=== PATIENT | male | born 1945 | race Caucasian/White ===

== ENCOUNTER 2019-07-16 17:25 | Inpatient (IN) ==
[2019-07-16] MEDS ORDERED: NITROGLYCERIN 2% OINTMENT 30GM TUBE EXT ONE (18:15)
[2019-07-16] MEDS ORDERED: FUROSEMIDE 40 MG/4 ML VIAL IV STA (18:15)
--- NOTE | 2019-07-16 18:26 | Emergency Department Note ---
History of Present Illness General Chief complaint: Referred by Doctor Stated complaint: POSSIBLE HEART FAILURE, SOB Time Seen by Provider: 07/16/19 18:05 Source: patient Limitations: no limitations History of Present Illness Provider complaint: Shortness of breath Onset (ago): week(s) 1 Location: chest Radiation: non-radiation Severity: moderate Pain Consistency: + intermittent Maximum Pain Intensity: 8 Quality: + other (Feels like he cannot breathe) Relieved By: + other (Oxygen) Associated symptoms: + chest pain (Tightness for the past week) and + other (Orthopnea and bilateral leg swelling); no cough, no diaphoresis, no fever/chills, no headaches, no malaise and no nausea/vomiting This is a 74-year-old male sent over from the [facility] cardiology office for possible CHF exacerbation. The patient has a prior history of coronary artery disease and is presenting with shortness of breath for the past week. He states that it is worse when he lies flat. It is better with oxygen here. He does not smoke cigarettes but he does chew tobacco. He states that years ago he had a blocked artery in his heart but was told that a vein made up for it. He was previously on Lasix but not recently. He does note that he has had significant swelling to both of his legs for the past week. He states the skin feels very tight around the entire leg from the knee down bilaterally. He also complains of chest discomfort which he has had for about a week as well. He states that it feels like a tightness in the middle of his chest. He denies any cough or cold symptoms, fever, malaise, known exposure to COVID-19, abdominal pain or diarrhea. Home Medications Home Medications Medication Instructions Recorded Confirmed Type amlodipine 2.5 mg PO DAILY 07/16/19 07/16/19 History aspirin 162 mg PO DAILY 07/16/19 07/16/19 History atenolol 50 mg PO DAILY 07/16/19 07/16/19 History losartan 100 mg PO DAILY 07/16/19 07/16/19 History terazosin 1 mg PO HS 07/16/19 07/16/19 History ustekinumab [Stelara] 90 mg SUBCUT UD 07/16/19 07/16/19 History Allergies Allergy/AdvReac Type Severity Reaction Status Date / Time No Known Allergies Allergy Verified 07/16/19 21:27 [id number] Allergy Unknown Unknown Uncoded 07/16/19 21:25 Past Med/Surg History Medical History Coronary artery disease 09/1999 - PTCA to OM2 Hypertension Psoriasis Statin intolerance Family History (Updated 07/16/19 @ 20:52 by CIARA Yusuf) Father Kidney failure Social History Preferred Language: Swedish Communication Ability: Effective Beliefs That Will Affect Care: None Current Living Situation: Spouse Feels Safe at Home: Yes Smoking Status: Never smoker Tobacco Type: smokeless tobacco ; Do You Dip or Chew Tobacco: Yes ; Tobacco Cessation Education Requested by Patient: No (refused) Hx Alcohol Use: No Hx Substance Use: No Review of Systems See HPI for pertinent positives & negatives. and A total of 10 systems reviewed and were otherwise negative Physical Exam Vital Signs Vital Signs - 24 hr 07/16/19 17:29 07/16/19 18:59 07/16/19 19:00 Temperature 36.7 C Temperature Source Oral Pulse Rate 73 67 68 Pulse Rate from SpO2 Sensor 66 66 Pulse Rhythm Regular Pulse Strength Normal Respiratory Rate 26 H 25 H 23 Respiratory Effort / Characteristics Non-Labored Spontaneous Respiratory Depth Normal Respiratory Pattern Regular Blood Pressure 191/95 H 170/66 H 165/74 H Blood Pressure Mean 127 91 113 Blood Pressure Position Lying Pulse Oximetry 83 L 100 99 Oxygen Delivery Method Room Air Nasal Cannula Nasal Cannula Oxygen Flow Rate 2 2 Sepsis Recent Fever Within 48 Hours No Sepsis New/Unexplained Change in Mental Status No Sepsis Action Taken by Nursing No Action Required 07/16/19 19:30 07/16/19 20:00 Temperature Temperature Source Pulse Rate 67 61 Pulse Rate from SpO2 Sensor 66 62 Pulse Rhythm Pulse Strength Respiratory Rate 17 23 Respiratory Effort / Characteristics Respiratory Depth Respiratory Pattern Blood Pressure 175/76 H 154/80 H Blood Pressure Mean 100 114 Blood Pressure Position Pulse Oximetry 99 96 Oxygen Delivery Method Nasal Cannula Nasal Cannula Oxygen Flow Rate 2 2 Sepsis Recent Fever Within 48 Hours Sepsis New/Unexplained Change in Mental Status Sepsis Action Taken by Nursing Constitutional: Vital signs reviewed. Eyes: Pupils are equal round reactive to light. Conjunctiva are noninjected. ENT: Pharynx is clear without erythema or exudate. Mucous membranes are moist. Neck supple without meningeal signs. Respiratory: Clear to auscultation bilaterally. Breath sounds are equal bilaterally. Cardiovascular: Regular rate and rhythm. No rubs or gallops. GI: Soft, nondistended and nontender. Bowel sounds are present. Musculoskeletal: Bilateral lower extremity pitting edema with intact distal pulses. Integumentary: No cyanosis. or jaundice. Neurological: The patient is awake and alert. No focal deficits. Psychiatric: Normal affect. Not anxious appearing. Course Administered Medications Enoxaparin Sodium (Lovenox) 40 mg SQ Q24H KARYN Stop: 08/15/19 22:59 Last Admin: 07/16/19 23:36 Dose: Not Given Documented by: [id number] Terazosin HCl (Hytrin) 1 mg PO HS KARYN Stop: 08/15/19 22:27 Last Admin: 07/16/19 23:35 Dose: 1 mg Documented by: [id number] Discontinued Medications Furosemide (Lasix) 40 mg IV NOW STA Stop: 07/16/19 18:16 Last Admin: 07/16/19 18:59 Dose: 40 mg Documented by: [id number] Nitroglycerin (Nitro-Bid 2%) 0.5 inch EXT NOW ONE Stop: 07/16/19 18:16 Last Admin: 07/16/19 18:58 Dose: 0.5 inch Documented by: [id number] Medical Decision Making Differential Diagnosis CHF exacerbation, pulmonary edema, pneumonia, acute coronary syndrome, unstable angina, pleural effusion Medical Records Attestation: I reviewed the patient's medical records. I did perform a limited focused review of portions of the patient's old chart on the electronic medical record. The patient has had no recent pertinent visits to this hospital. Home Medications Current Medication List: was personally reviewed by me Laboratory Data Attestation: I reviewed the patient's lab results. Result diagrams: 07/16/19 18:35 07/16/19 18:35 Lab Results 07/16/19 07/16/19 07/16/19 Range/Units 18:35 18:35 18:35 WBC 10.20 (4.8-10.8) K/uL RBC 4.58 L (4.7-6.1) M/uL Hgb 14.4 (14.0-18.0) g/dL Hct 46.9 (42-52) % MCV 102.4 H (80-100) fL MCH 31.4 (25-34) pg MCHC 30.7 L (32-36) g/dL RDW Std Deviation 65.8 H (36.4-46.3) fL RDW Coeff of Sabrina 17.4 H (11.5-14.5) % Plt Count 243 (130-400) K/uL MPV 10.6 H (7.4-10.4) fL Immature Gran % (Auto) 0.2 % Neut % (Auto) 72.9 % Lymph % (Auto) 15.5 % [place] % (Auto) 8.5 % Eos % (Auto) 2.7 % Baso % (Auto) 0.2 % Immature Gran # (Auto) 0.02 (0.00-0.02) K/uL Neut # (Auto) 7.43 H (1.4-6.5) K/uL Lymph # (Auto) 1.58 (1.2-3.4) K/uL [place] # (Auto) 0.87 H (0.11-0.59) K/uL Eos # (Auto) 0.28 (0-0.5) K/uL Baso # (Auto) 0.02 (0-0.2) K/uL Absolute Nucleated RBC 0.03 H (0-0) K/uL Nucleated RBC % (auto) 0.3 % PT 10.7 (9.0-12.0) Seconds INR 1.0 (0.9-1.1) APTT 27.6 (21.0-31.0) Seconds PTT Ratio 1.0 Sodium (136-145) mmol/L Potassium (3.5-5.1) mmol/L Chloride (98-107) mmol/L Carbon Dioxide (21-32) mmol/L Anion Gap (3-11) BUN (7-18) mg/dl Creatinine (0.6-1.4) mg/dl Est Cr Clr Drug Dosing Est GFR ( Amer) Est GFR (Non-Af Amer) BUN/Creatinine Ratio (10-20) Glucose (70-99) mg/dl Calcium (8.5-10.1) mg/dl Total Bilirubin (0.2-1) mg/dl AST (15-37) U/L ALT (12-78) U/L Alkaline Phosphatase (45-117) U/L Troponin I < 0.015 (0-0.045) ng/ml NT-Pro-B Natriuret Pep 1655 H (0-900) pg/ml Total Protein (6.4-8.2) gm/dl Albumin (3.4-5.0) gm/dl Globulin (2.5-4.0) gm/dl Albumin/Globulin Ratio (0.9-2) 05/18/20 Range/Units 18:35 WBC (4.8-10.8) K/uL RBC (4.7-6.1) M/uL Hgb (14.0-18.0) g/dL Hct (42-52) % MCV (80-100) fL MCH (25-34) pg MCHC (32-36) g/dL RDW Std Deviation (36.4-46.3) fL RDW Coeff of Sabrina (11.5-14.5) % Plt Count (130-400) K/uL MPV (7.4-10.4) fL Immature Gran % (Auto) % Neut % (Auto) % Lymph % (Auto) % [place] % (Auto) % Eos % (Auto) % Baso % (Auto) % Immature Gran # (Auto) (0.00-0.02) K/uL Neut # (Auto) (1.4-6.5) K/uL Lymph # (Auto) (1.2-3.4) K/uL [place] # (Auto) (0.11-0.59) K/uL Eos # (Auto) (0-0.5) K/uL Baso # (Auto) (0-0.2) K/uL Absolute Nucleated RBC (0-0) K/uL Nucleated RBC % (auto) % PT (9.0-12.0) Seconds INR (0.9-1.1) APTT (21.0-31.0) Seconds PTT Ratio Sodium 142 (136-145) mmol/L Potassium 4.9 (3.5-5.1) mmol/L Chloride 104 (98-107) mmol/L Carbon Dioxide 34 H (21-32) mmol/L Anion Gap 4.0 (3-11) BUN 16 (7-18) mg/dl Creatinine 1.33 (0.6-1.4) mg/dl Est Cr Clr Drug Dosing Not Reportable Est GFR ( Amer) 60.6 Est GFR (Non-Af Amer) 52.3 BUN/Creatinine Ratio 12.2 (10-20) Glucose 101 H (70-99) mg/dl Calcium 8.6 (8.5-10.1) mg/dl Total Bilirubin 0.7 (0.2-1) mg/dl AST 17 (15-37) U/L ALT 28 (12-78) U/L Alkaline Phosphatase 126 H (45-117) U/L Troponin I (0-0.045) ng/ml NT-Pro-B Natriuret Pep (0-900) pg/ml Total Protein 7.4 (6.4-8.2) gm/dl Albumin 3.2 L (3.4-5.0) gm/dl Globulin 4.2 H (2.5-4.0) gm/dl Albumin/Globulin Ratio 0.8 L (0.9-2) Imaging Data Radiologist's Impression: SINGLE VIEW CHEST CLINICAL HISTORY: Atypical chest pain. FINDINGS: An AP, portable, upright chest radiograph is correlated with chest CT dated 07/02/2008. The examination is degraded by portable technique and patient rotation. The heart is enlarged noting atherosclerotic calcification of the thoracic aorta. There is pulmonary vascular congestion. There are small pleural effusions with bibasilar consolidation. No pneumothorax is seen. The skeletal structures are osteopenic. The bony thorax is grossly intact. IMPRESSION: 1. Cardiomegaly with evidence of congestive failure. 2. Small pleural effusions with bibasilar consolidation. This likely represents atelectasis and clinical correlation will be required. ACT 112: Negative or not required by law. Electronically signed by: Gomez Gómez M.D. 07/16/2019 7:35 PM ECG Data Attestation: I personally reviewed and interpreted this ECG as follows: Indication: + chest pain and + SOB/dyspnea Rate (beats per minute): 70 Rhythm: + normal sinus ECG Intervals/blocks: + Left anterior fascicular block and + Right Bundle branch block ECG ST segments: + T-wave inversions ECG Findings: + PACs Blood Pressure Blood Pressure Findings: Elevated blood pressure Blood Pressure Disposition: further management by hospitalist TIANNA Narrative I did evaluate the patient as noted above. The patient is presenting with shortness of breath with leg swelling and chest discomfort for the past week. IV access was established. The patient's O2 saturation was 83% on room air. The patient was placed on supplemental oxygen via nasal cannula. His O2 saturation went up to 99% on 2 L. I did treat the patient with nitroglycerin paste to the anterior chest wall. He was also given Lasix [address] I did place an order for continuous cardiac monitoring. The monitor showed normal sinus rhythm with a rate of 73. I did order and personally review the patient's 12-lead EKG as described above. He has no acute ischemia. I did order and personally reviewed the images of the patient's chest x-ray as described above. Chest x-ray is consistent with CHF exacerbation with bilateral pleural effu sions and atelectasis at the base. I did order and review the patient's blood work as noted in the electronic medical record. His white count is not elevated. He is not anemic. Electrolytes are unremarkable. BNP is elevated consistent with CHF. Troponin is negative. I did discuss the test results with the patient. He states he is feeling much better at this time. He has no chest discomfort. I did discuss case with the hospitalist and case work aide. Impression & Plan Hypoxia, Chest pain, Acute exacerbation of CHF (congestive heart failure), Bilateral pleural effusion Discharge Plan Visit Data *Final* Discharge Date/Time: 07/16/19 21:53 Chief Complaint: Referred by Doctor Stated Complaint: POSSIBLE HEART FAILURE, SOB ED Provider: Joni Pino Discharge Problem: Hypoxia, Chest pain, Acute exacerbation of CHF (congestive heart failure), Bilateral pleural effusion Patient Disposition: Admitted As Inpatient Condition: Good Discharge Instructions Interventions: ED Discharge Assessment Last Done: 07/16/19 21:53 Discharge Problem: Chest pain Qualifiers: Chest pain type: unspecified Qualified Code(s): R07.9 - Chest pain, unspecified Acute exacerbation of CHF (congestive heart failure) Qualifiers: Heart failure type: unspecified Qualified Code(s): I50.9 - Heart failure, unspecified
[2019-07-16 18:52] LABS: Basophils # (auto) 0.02 K/uL (0-0.2); Basophils % (auto) 0.2 %; Eosinophils # (auto) 0.28 K/uL (0-0.5); Eosinophils % (auto) 2.7 %; Hematocrit (blood only) 46.9 % (42-52); Hemoglobin 14.4 g/dL (14.0-18.0); Immature Granulocytes # (auto) 0.02 K/uL (0.00-0.02); Immature Granulocytes % (auto) 0.2 %; Lymphocytes # (auto) 1.58 K/uL (1.2-3.4); Lymphocytes % (auto) 15.5 %; Mean Corpuscular Hemoglobin 31.4 pg (25-34); Mean Corpuscular Hgb Conc 30.7 g/dL (32-36); Mean Corpuscular Volume 102.4 fL (80-100); Mean Platelet Volume 10.6 fL (7.4-10.4); Monocytes # (auto) 0.87 K/uL (0.11-0.59); Monocytes % (auto) 8.5 %; Neutrophils # (auto) 7.43 K/uL (1.4-6.5); Neutrophils % (auto) 72.9 %; Nucleated RBC # (auto) 0.03 K/uL (0-0); Nucleated RBC % (auto) 0.3 %; Platelet Count 243 K/uL (130-400); RDW Coefficient of Variation 17.4 % (11.5-14.5); RDW Standard Deviation 65.8 fL (36.4-46.3); Red Blood Count 4.58 M/uL (4.7-6.1)
[2019-07-16 18:58] LABS: Partial Thromboplastin Time 27.6 Seconds (21.0-31.0); Prothrombin Time 10.7 Seconds (9.0-12.0)
[2019-07-16 19:06] LABS: Alanine Aminotransferase 28 U/L (12-78); Albumin Level 3.2 gm/dl (3.4-5.0); Aspartate Aminotransferase 17 U/L (15-37); BUN Creatinine Ratio 12.2 (10-20); Blood Urea Nitrogen 16 mg/dl (7-18); Calcium 8.6 mg/dl (8.5-10.1); Carbon Dioxide 34 mmol/L (21-32); Chloride 104 mmol/L (98-107); Est GFR (African American) 60.6; Est GFR (Non-African American) 52.3; Glucose 101 mg/dl (70-99); Potassium 4.9 mmol/L (3.5-5.1); Sodium 142 mmol/L (136-145)
[2019-07-16 19:09] LABS: Albumin Globulin Ratio 0.8 (0.9-2); Alkaline Phosphatase 126 U/L (45-117); Bilirubin,Total 0.7 mg/dl (0.2-1); Globulin 4.2 gm/dl (2.5-4.0); Total Protein 7.4 gm/dl (6.4-8.2)
[2019-07-16 19:14] LABS: NT Pro B Type Natriuretic Pept 1655 pg/ml (0-900); Troponin I < 0.015 ng/ml (0-0.045)
--- NOTE | 2019-07-16 19:36 | XRay Report ---
SINGLE VIEW CHEST CLINICAL HISTORY: Atypical chest pain. FINDINGS: An AP, portable, upright chest radiograph is correlated with chest CT dated 07/02/2008. The e xamination is degraded by portable technique and patient rotation. The heart is enlarged noting ather osclerotic calcification of the thoracic aorta. There is pulmonary vascular congestion. There are sma ll pleural effusions with bibasilar consolidation. No pneumothorax is seen. The skeletal structures a re osteopenic. The bony thorax is grossly intact. IMPRESSION: 1. Cardiomegaly with evidence of congestive failure. 2. Small pleural effusions with bibasilar consolidation. This likely represents atelectasis and clini glendy correlation will be required. ACT 112: Negative or not required by law. Electronically signed by: Gomez Gómez M.D. 07/16/2019 7:35 PM
--- NOTE | 2019-07-16 20:39 | History & Physical Report ---
Date of Service July 16, 2019 Assessment & Plan (1) Acute exacerbation of CHF (congestive heart failure): -admit to tele -patient presenting from home with reports of lower extremity edema and shortness of breath -on exam, found to have pitting edema BLLE and was also hypoxic on room air requ iring 2L oxygen via NC -CXR shows CHF, proBNP 1655 -echo 2016 - EF 55-59%, grade I diastolic dysfunction -s/p Lasix 40mg IV in the ED, continue with 40mg IV BID -update echo -strict I/Os, daily weights, low Na+ diet -cardio consult, input appreciated (2) Acute respiratory failure with hypoxia: -on presentation, 83% on room air requiring 2L of oxygen -likely due to CHF -continue to monitor (3) Chest pain: (4) Coronary artery disease: -initial trop negative, EKG shows bifascicular block -continue to cycle cardiac enzymes -echo -continue ASA, beta irais, ARB; noted to be statin intolerant (5) Hypertension: -BP elevated, should improved with diuresis -continue atenolol, amlodipine, terazosin, and losartan (6) DVT prophylaxis: -SQ Lovenox History of Present Illness Chief Complaint: Shortness of Breath, Lower Extremity Edema Primary Care Provider: Everardo Ervin 74 year old male with PMH CAD, HTN, psoriasis, and other problems listed below who presents to the ED with reports of lower extremity edema and shortness of breath. Patient reports symptoms have been ongoing for the past two weeks and progressively getting worse. Patient reports shortness of breath with minimal exertion. He reports orthopnea, worsening lower extremity edema, and abdominal d istention. He has had associated chest pain that he reports has been persistent. Pain is located substernally and patient describes it as a tightness. He has nitro at home however did not take any doses. He does not weigh himself on a routine basis. Patient denies lightheadedness, dizziness, diaphoresis, or syncopal events. No abdominal pain, nausea, vomiting, or diarrhea. Denies cough and sputum production. No fevers or chills. Denies urinary symptoms. In the ED, patient is found to be hypoxic on room air at 83%. This improved with oxygen 2L via NC. CXR shows CHF. Initial trop is negative and EKG does not show any acute ST changes. Patient was given Lasix 40mg IV and 0.5 inch nitro paste. Allergies Allergy/AdvReac Type Severity Reaction Status Date / Time No Known Allergies Allergy Verified 07/16/19 21:27 [id number] Allergy Unknown Unknown Uncoded 07/16/19 21:25 Home Medications Home Medications Medication Instructions Recorded Confirmed Type amlodipine 2.5 mg PO DAILY 07/16/19 07/16/19 History aspirin 162 mg PO DAILY 07/16/19 07/16/19 History atenolol 50 mg PO DAILY 07/16/19 07/16/19 History losartan 100 mg PO DAILY 07/16/19 07/16/19 History terazosin 1 mg PO HS 07/16/19 07/16/19 History ustekinumab [Stelara] 90 mg SUBCUT UD 07/16/19 07/16/19 History Past Med/Surg History Medical History Coronary artery disease 09/1999 - PTCA to OM2 Hypertension Psoriasis Statin intolerance Family History (Updated 07/16/19 @ 20:52 by CIARA Yusuf) Father Kidney failure Social History Preferred Language: Kiswahili Communication Ability: Effective Beliefs That Will Affect Care: None Current Living Situation: Spouse Feels Safe at Home: Yes Smoking Status: Never smoker Tobacco Type: smokeless tobacco ; Do You Dip or Chew Tobacco: Yes ; Tobacco Cessation Education Requested by Patient: No (refused) Hx Alcohol Use: No Hx Substance Use: No Review of Systems Review of Systems: ROS per HPI, all other systems reviewed and negative Physical Exam Constitutional: WD/WN, vitals as above + obese Eyes: PERRL, conjunctivae normal, anicteric sclerae ENMT: external ear and nose normal, oropharynx normal Respiratory: + abnormal respiratory effort (poor inspiratory effort) and no respiratory distress Auscultation: + diminished lung sounds Cardiovascular: Rate/Rhythm: regular rate and regular rhythm Vessels: normal peripheral pulses Extremities: + edema (+3-4 pitting edema BLE ) Gastrointestinal (Abdomen): normal bowel sounds, soft, nontender, no hepatosplenomegaly Inspection/Auscultation: + abdomen distended Musculoskeletal: no cyanosis or clubbing, extremities motor strength 5/5 Skin: no rashes, warm and dry Neurologic: PERRL, EOMI, accommodation nl, no face palsy, no dysarthria Psychiatric: A+Ox3, euthymic affect Results & Data Results & Data ([facility]) Vital Signs (Past 12 Hours) Vital Signs Temp Pulse Resp BP Pulse Ox 07/16/19 19:30 67 17 175/76 H 99 07/16/19 19:00 68 23 165/74 H 99 07/16/19 18:59 67 25 H 170/66 H 100 07/16/19 17:29 36.7 C 73 26 H 191/95 H 83 L Laboratory Results Short CBC 07/16/19 Range/Units 18:35 WBC 10.20 (4.8-10.8) K/uL Hgb 14.4 (14.0-18.0) g/dL Hct 46.9 (42-52) % Plt Count 243 (130-400) K/uL BMP 07/16/19 18:35 Sodium 142 Potassium 4.9 Chloride 104 Carbon Dioxide 34 H BUN 16 Creatinine 1.33 Glucose 101 H Calcium 8.6 Cardiac Enzymes 07/16/19 Range/Units 18:35 Troponin I < 0.015 (0-0.045) ng/ml Liver Function 07/16/19 Range/Units 18:35 Total Bilirubin 0.7 (0.2-1) mg/dl AST 17 (15-37) U/L ALT 28 (12-78) U/L Alkaline Phosphatase 126 H (45-117) U/L Albumin 3.2 L (3.4-5.0) gm/dl Diagnostic Findings CXR IMPRESSION: 1. Cardiomegaly with evidence of congestive failure. 2. Small pleural effusions with bibasilar consolidation. This likely represents atelectasis and clinical correlation will be required. Code Status & VTE Plan Code Status Patient is a full code as per my discussion with him. VTE Prophylaxis Plan VTE Prophylaxis will be ordered: Yes Supervising Physician Co-Signing Physician Notes Care coordinated with CIARA Yusuf. Agree with above note. Patient seen and examined. Please refer to her notes for full details. Vital signs reviewed. Physical exam: General exam: Alert and oriented. Not in acute distress. CVS: S1 and S2 heard, regular rate and rhythm, no murmurs. RS: Clear to auscultation, no wheezing, mild bibasilar crackles present. ABD: Soft, bowel sounds present, nontender, no distention. SATE[employer] SITE MONITOR: Nonfocal. EXT: Lower extremity edema present , no erythema. Labs: Reviewed. Assessment and plan: 74M presents with ongoing sob on exertion, worsening lower extremity edema, chest pain on lying down and found to be in CHF. acute CHF mostly diastolic iv lasix 40mg bid daily weights, i/o echo cardiology consult Was saturating 83% on RA. Currently with 2lt oxygen feeling better monitor in tele CAd home meds stable Other diagnosis and plan of care as per CIARA Yusuf. Julio ellis MD. (1) Acute exacerbation of CHF (congestive heart failure) Heart failure type: unspecified Qualified Code(s): I50.9 - Heart failure, unspecified (2) Chest pain Chest pain type: unspecified Qualified Code(s): R07.9 - Chest pain, unspecified
[2019-07-16] MEDS ORDERED: ACETAMINOPHEN 325 MG TAB PO PRN (22:28)
[2019-07-16] MEDS ORDERED: PATIENT'S WEIGHT NEEDED SCH (22:45)
[2019-07-16] MEDS: TERAZOSIN HCL 1 MG CAP PO SCH (23:35)
[2019-07-16] MEDS: ENOXAPARIN INJ 40 MG/0.4 ML SYR SQ SCH (23:36)
[2019-07-17 06:17] LABS: Hemoglobin 14.8 g/dL (14.0-18.0); Mean Corpuscular Hgb Conc 30.8 g/dL (32-36); Mean Corpuscular Volume 103.9 fL (80-100); Mean Platelet Volume 10.5 fL (7.4-10.4); Platelet Count 224 K/uL (130-400); RDW Coefficient of Variation 17.5 % (11.5-14.5); RDW Standard Deviation 66.6 fL (36.4-46.3); Red Blood Count 4.62 M/uL (4.7-6.1); White Blood Count 8.32 K/uL (4.8-10.8)
[2019-07-17 06:49] LABS: BUN Creatinine Ratio 11.1 (10-20); Blood Urea Nitrogen 15 mg/dl (7-18); Calcium 8.3 mg/dl (8.5-10.1); Carbon Dioxide 35 mmol/L (21-32); Chloride 102 mmol/L (98-107); Creatinine Clr Calc Pharmacy 67.1 ml/min; Est GFR (African American) 60.6; Est GFR (Non-African American) 52.3; Glucose 100 mg/dl (70-99); Potassium 4.6 mmol/L (3.5-5.1); Sodium 141 mmol/L (136-145)
[2019-07-17 06:53] LABS: Troponin I < 0.015 ng/ml (0-0.045)
[2019-07-17] MEDS ORDERED: PERFLUTREN LIPID MICROSPHERE (DEFINITY) IV ONE (07:07)
[2019-07-17] MEDS: AMLODIPINE BESYLATE 5 MG TAB PO SCH (07:50)
[2019-07-17] MEDS: ATENOLOL 50 MG TABLET PO SCH (07:51)
[2019-07-17] MEDS: ASPIRIN 81 MG ECTAB PO SCH (07:51)
[2019-07-17] MEDS: LOSARTAN POTASSIUM 50 MG TAB PO SCH (07:52)
[2019-07-17] MEDS ORDERED: FUROSEMIDE 40 MG/4 ML VIAL IV SCH (09:00)
[2019-07-17] MEDS: FUROSEMIDE 40 MG in SYRINGE 0 ML IV SCH ×2 (09:42→15:57)
--- NOTE | 2019-07-17 11:24 | Cardiology Consultation ---
Date of Consultation July 17, 2019 Assessment & Plan (1) Acute diastolic (congestive) heart failure: Patient's chest x-ray revealed small bilateral pleural effusions. proBNP screen was elevated, and his significant edema worse than his baseline. After receiving 40 mg of furosemide, 2.2 L of urine output noted overnight. Recommend continuing his current dose of furosemide 40 mg IV twice daily. I believe that the chest symptoms the patient describes on more consistent with volume overload state when he is supine and angina. His blood pressure was elevated on presentation, but has improved with most recent reading down to 163/71 on his outpatient medications. Agree with Lovenox for DVT prophylaxis. An echocardiogram has been completed and will be reviewed. History of Present Illness Attending Physician: Gaston Otero MD History of Present Illness Poncho Sigala is a 74 year old male seen in cardiology consultation per the request of CIARA Yusuf for evaluation of congestive heart failure. The patient describes to me that he has had progressive lower extremity swelling and shortness of breath when he lays flat for about 2 weeks. 2+ bilateral lower extremity edema noted, with significant erythema. No broken skin. Currently he is sitting in the bedside chair, and is comfortable. Telemetry reveals stable sinus rhythm in the range of 50 to 60 bpm. The patient most recently been assessed by telephonic follow-up by Pedro House PA-C of our practice on 06/13/2019. Relatively stable cardiac signs and symptoms noted at that time. Past Cardiac History: Chronic coronary artery disease with cardiac catheterization in September 1999 demonstrating chronic occlusion of the LAD after the first septal esthetician/skin therapist and diagonal branch, with distal LAD territory supplied by collateral flow, 99% OM 2 stenosis, 30% proximal RCA. Patient underwent percutaneous coronary intervention of the second obtuse marginal branch. Echocardiogram performed in 2015 revealed mild concentric left ventricular hypertrophy, normal LVEF of 55 to 59%, grade 1 diastolic dysfunction Allergies Allergy/AdvReac Type Severity Reaction Status Date / Time No Known Allergies Allergy Verified 07/16/19 21:27 [id number] Allergy Unknown Unknown Uncoded 07/16/19 21:25 Home Medications Home Medications Medication Instructions Recorded Confirmed Type amlodipine 2.5 mg PO DAILY 07/16/19 07/16/19 History aspirin 162 mg PO DAILY 07/16/19 07/16/19 History atenolol 50 mg PO DAILY 07/16/19 07/16/19 History losartan 100 mg PO DAILY 07/16/19 07/16/19 History terazosin 1 mg PO HS 07/16/19 07/16/19 History ustekinumab [Stelara] 90 mg SUBCUT UD 07/16/19 07/16/19 History Patient History Medical History Coronary artery disease 09/1999 - PTCA to OM2 Hypertension Psoriasis Statin intolerance Family History Father Kidney failure Social History Preferred Language: Maltese Communication Ability: Effective Beliefs That Will Affect Care: None Current Living Situation: Spouse Feels Safe at Home: Yes Smoking Status: Never smoker Tobacco Type: smokeless tobacco ; Do You Dip or Chew Tobacco: Yes ; Tobacco Cessation Education Requested by Patient: No (refused) Hx Alcohol Use: No Hx Substance Use: No Review of Systems Review of Systems: All systems reviewed & are unremarkable except as noted in HPI & below Physical Exam Physical Exam: Temp Pulse Resp BP Pulse Ox 36.5 C 64 20 163/71 H 90 07/17/19 08:06 07/17/19 08:06 07/17/19 08:06 07/17/19 08:06 07/17/19 08:06 Constitutional: WD/WN, vitals as above Respiratory: Mildly decreased breath sounds in the bases Cardiovascular: RRR, no murmur, no edema Extremities: + edema (2+ bilateral lower extremity edema, mild erythema) Gastrointestinal (Abdomen): normal bowel sounds, soft, nontender, no hepatosplenomegaly Neurologic: PERRL, EOMI, accommodation nl, no face palsy, no dysarthria Results & Data ([facility]) Vital Signs (Past 12 Hours) Vital Signs Temp Pulse Resp BP BP Pulse Ox 07/17/19 08:06 36.5 C 64 20 163/71 H 90 07/17/19 04:23 36.5 C 68 16 156/73 H 91 Laboratory Results Cardiac Enzymes 07/16/19 07/16/19 07/16/19 Range/Units 18:35 18:35 23:54 AST 17 (15-37) U/L Troponin I < 0.015 < 0.015 (0-0.045) ng/ml 07/17/19 Range/Units 06:03 AST (15-37) U/L Troponin I < 0.015 (0-0.045) ng/ml Coagulation 07/16/19 Range/Units 18:35 PT 10.7 (9.0-12.0) Seconds APTT 27.6 (21.0-31.0) Seconds CBC 07/16/19 07/17/19 Range/Units 18:35 06:03 WBC 10.20 8.32 (4.8-10.8) K/uL RBC 4.58 L 4.62 L (4.7-6.1) M/uL Hgb 14.4 14.8 (14.0-18.0) g/dL Hct 46.9 48.0 (42-52) % Plt Count 243 224 (130-400) K/uL Neut # (Auto) 7.43 H (1.4-6.5) K/uL Lymph # (Auto) 1.58 (1.2-3.4) K/uL [place] # (Auto) 0.87 H (0.11-0.59) K/uL Eos # (Auto) 0.28 (0-0.5) K/uL Baso # (Auto) 0.02 (0-0.2) K/uL Comprehensive Metabolic Panel 07/16/19 07/17/19 Range/Units 18:35 06:03 Sodium 142 141 (136-145) mmol/L Potassium 4.9 4.6 (3.5-5.1) mmol/L Chloride 104 102 (98-107) mmol/L Carbon Dioxide 34 H 35 H (21-32) mmol/L BUN 16 15 (7-18) mg/dl Creatinine 1.33 1.33 (0.6-1.4) mg/dl Glucose 101 H 100 H (70-99) mg/dl Calcium 8.6 8.3 L (8.5-10.1) mg/dl AST 17 (15-37) U/L ALT 28 (12-78) U/L Alkaline Phosphatase 126 H (45-117) U/L Total Protein 7.4 (6.4-8.2) gm/dl Albumin 3.2 L (3.4-5.0) gm/dl Intake and Output 07/16/19 07/17/19 07/17/19 22:59 06:59 14:59 Intake Total 0 / 0 Output Total 1275 / 2225 950 / 2225 375 / 375 Balance -1275 / -2225 -950 / -2225 -375 / -375 Intake: Oral 0 / 0 Output: Urine 1275 / 2225 950 / 2225 375 / 375 Other: Other Intake Source NPO Weight 130.5 kg 130.3 kg Diagnostic Findings EKG performed 07/16/2019 at 1828 hrs. revealed sinus rhythm with PACs at 70 bpm, bifascicular block pattern with right bundle branch block, left anterior fascicular block. Repeat EKG this morning at 6:40 AM revealed sinus rhythm with ongoing bifascicular block pattern, no significant repolarization changes. Compared to his previous outpatient EKG performed on 10/25/2016, and incomplete right bundle branch block was noted at that time, the bifascicular block pattern finding is new. Medications Administered Current Inpatient Medications Acetaminophen (Tylenol) 650 mg PO Q4H PRN PRN Reason: Pain or Fever Stop: 08/15/19 22:27 Amlodipine Besylate (Norvasc) 2.5 mg PO DAILY [facility] Stop: 08/16/19 08:59 Last Admin: 07/17/19 07:50 Dose: 2.5 mg Documented by: Aspirin (Ecotrin Ectab) 162 mg PO DAILY KARYN Stop: 08/16/19 08:59 Last Admin: 07/17/19 07:51 Dose: 162 mg Documented by: Atenolol (Tenormin) 50 mg PO DAILY KARYN Stop: 08/16/19 08:59 Last Admin: 07/17/19 07:51 Dose: 50 mg Documented by: Enoxaparin Sodium (Lovenox) 40 mg SQ Q24H KARYN Stop: 08/15/19 22:59 Last Admin: 07/16/19 23:36 Dose: Not Given Documented by: Furosemide 40 mg/ Syringe 4 mls @ 4 mls/min IV [id number] KARYN Stop: 08/16/19 08:59 Last Admin: 07/17/19 09:42 Dose: 4 mls/min Documented by: Losartan Potassium (Cozaar) 100 mg PO DAILY KARYN Stop: 08/16/19 08:59 Last Admin: 07/17/19 07:52 Dose: 100 mg Documented by: Terazosin HCl (Hytrin) 1 mg PO [facility] Stop: 08/15/19 22:27 Last Admin: 07/16/19 23:35 Dose: 1 mg Documented by:
--- NOTE | 2019-07-17 13:16 | Hospitalist Progress Note ---
Date of Service July 17, 2019 Assessment & Plan (1) Acute exacerbation of CHF (congestive heart failure): Acute on chronic diastolic heart failure -patient presenting from home with reports of lower extremity edema and shortness of breath -CXR shows CHF, proBNP 1655 -echo 2016 - EF 55-59%, grade I diastolic dysfunction -s/p Lasix 40mg IV in the ED, continue with 40mg IV BID -Has been diuresing enough -We will continue Lasix intravenously 40 mg twice a day -Appreciate cardiology input and recommendation -Doubt any ACS will get repeat echo (2) Acute respiratory failure with hypoxia: -on presentation, 83% on room air requiring 2L of oxygen -Secondary to CHF and may be complicated by obesity -continue to monitor (3) Chest pain: Related to volume overload No significant chest pain this morning Doubt any ACS (4) Coronary artery disease: -initial trop negative, EKG shows bifascicular block -continue to cycle cardiac enzymes-doubt any ACS -continue ASA, beta irais, ARB; noted to be statin intolerant (5) Hypertension: -BP elevated, should improved with diuresis -continue atenolol, amlodipine, terazosin, and losartan -Blood pressure is controlled (6) DVT prophylaxis: -SQ Lovenox (7) Chronic kidney disease, stage 3: Admission and Anticipated Discharge Date Admission Date: July 16, 2019 Subjective The patient was seen and examined in telemetry unit He has been out of bed 1 a chair with some improvement of his shortness of breath Denies any chest pain and/or palpitation Denies any abdominal pain nausea and or vomiting Review of Systems Review of Systems: All systems reviewed and are unremarkable except as noted below Constitutional: + weakness Respiratory: + dyspnea (Mild to moderate dyspnea at rest) Cardiovascular: + dyspnea at rest; no chest pain Physical Exam Physical Exam: Sitting on a chair outside bed with minimal shortness of breath Constitutional: well developed, well nourished, + acute distress (Shortness of breath at rest), + ill appearing and + morbidly obese Eyes: PERRL, conjunctivae normal, anicteric sclerae ENMT: external ear and nose normal, oropharynx normal Neck: trachea midline, no thyromegaly Respiratory: + respiratory distress (Mild to moderate shortness of breath) Auscultation: + diminished lung sounds and + crackles (Minimal bibasilar crackles) Cardiovascular: Rate/Rhythm: regular rate and regular rhythm Heart Sounds: no murmur Extremities: + edema (1-2+ bilateral edema) Gastrointestinal (Abdomen): Inspection/Auscultation: + abdomen distended Percussion/Palpation: abdomen soft; abdomen nontender Musculoskeletal: No acute arthritis in any joints Neurologic: moves all extremities; no focal motor deficits Results & Data Results & Data ([facility]) Vital Signs (Past 12 Hours) Vital Signs Temp Pulse Resp BP BP Pulse Ox 07/17/19 11:57 36.9 C 71 19 137/64 90 07/17/19 08:06 36.5 C 64 20 163/71 H 90 07/17/19 04:23 36.5 C 68 16 156/73 H 91 Laboratory Results Short CBC 07/16/19 07/17/19 Range/Units 18:35 06:03 WBC 10.20 8.32 (4.8-10.8) K/uL Hgb 14.4 14.8 (14.0-18.0) g/dL Hct 46.9 48.0 (42-52) % Plt Count 243 224 (130-400) K/uL BMP 07/16/19 07/17/19 18:35 06:03 Sodium 142 141 Potassium 4.9 4.6 Chloride 104 102 Carbon Dioxide 34 H 35 H BUN 16 15 Creatinine 1.33 1.33 Glucose 101 H 100 H Calcium 8.6 8.3 L Cardiac Enzymes 07/16/19 07/16/19 07/17/19 Range/Units 18:35 23:54 06:03 Troponin I < 0.015 < 0.015 < 0.015 (0-0.045) ng/ml Liver Function 07/16/19 Range/Units 18:35 Total Bilirubin 0.7 (0.2-1) mg/dl AST 17 (15-37) U/L ALT 28 (12-78) U/L Alkaline Phosphatase 126 H (45-117) U/L Albumin 3.2 L (3.4-5.0) gm/dl Medications Administered Current Inpatient Medications Acetaminophen (Tylenol) 650 mg PO Q4H PRN PRN Reason: Pain or Fever Stop: 08/15/19 22:27 Amlodipine Besylate (Norvasc) 2.5 mg PO DAILY [facility] Stop: 08/16/19 08:59 Last Admin: 07/17/19 07:50 Dose: 2.5 mg Documented by: Aspirin (Ecotrin Ectab) 162 mg PO DAILY [facility] Stop: 08/16/19 08:59 Last Admin: 07/17/19 07:51 Dose: 162 mg Documented by: Atenolol (Tenormin) 50 mg PO DAILY [facility] Stop: 08/16/19 08:59 Last Admin: 07/17/19 07:51 Dose: 50 mg Documented by: Enoxaparin Sodium (Lovenox) 40 mg SQ Q24H KARYN Stop: 08/15/19 22:59 Last Admin: 07/16/19 23:36 Dose: Not Given Documented by: Furosemide 40 mg/ Syringe 4 mls @ 4 mls/min IV [id number] KARYN Stop: 08/16/19 08:59 Last Admin: 07/17/19 09:42 Dose: 4 mls/min Documented by: Losartan Potassium (Cozaar) 100 mg PO DAILY [facility] Stop: 08/16/19 08:59 Last Admin: 07/17/19 07:52 Dose: 100 mg Documented by: Terazosin HCl (Hytrin) 1 mg PO HS [facility] Stop: 08/15/19 22:27 Last Admin: 07/16/19 23:35 Dose: 1 mg Documented by: (1) Acute exacerbation of CHF (congestive heart failure) Heart failure type: unspecified Qualified Code(s): I50.9 - Heart failure, unspecified (2) Chest pain Chest pain type: unspecified Qualified Code(s): R07.9 - Chest pain, unspecified
--- NOTE | 2019-07-17 15:43 | Electrocardiogram Report ---
Test Reason : Blood Pressure : / mmHG Vent. Rate : 070 BPM Atrial Rate : 070 BPM P-R Int : 150 ms QRS Dur : 126 ms QT Int : 430 ms P-R-T Axes : 013 -51 020 degrees QTc Int : 464 ms Sinus rhythm with Premature atrial complexes Right bundle branch block Left anterior fascicular block Bifascicular block Abnormal ECG When compared with ECG of 02-JUL-2008 19:40, Premature atrial complexes are now Present (RBBB and left anterior fascicular block) is now Present Confirmed by Michael Davila ([id number]) on 07/17/2019 3:43:00 PM Referred By: Pedro House Confirmed By:Killian Davila
--- NOTE | 2019-07-17 15:50 | Electrocardiogram Report ---
Test Reason : Blood Pressure : / mmHG Vent. Rate : 066 BPM Atrial Rate : 066 BPM P-R Int : 180 ms QRS Dur : 114 ms QT Int : 444 ms P-R-T Axes : 056 -58 003 degrees QTc Int : 465 ms Sinus rhythm with Premature atrial complexes Right bundle branch block Left anterior fascicular block Bifascicular block Abnormal ECG When compared with ECG of 16-JUL-2019 18:28, (unconfirmed) No significant change was found Confirmed by Michael Davila ([id number]) on 07/17/2019 3:49:57 PM Referred By: Pedro House Confirmed By:Killian Davila
[2019-07-17] MEDS: TERAZOSIN HCL 1 MG CAP PO SCH (20:55)
[2019-07-17] MEDS: ENOXAPARIN INJ 40 MG/0.4 ML SYR SQ SCH (22:25)
[2019-07-18 05:46] LABS: Basophils # (auto) 0.02 K/uL (0-0.2); Basophils % (auto) 0.2 %; Eosinophils # (auto) 0.26 K/uL (0-0.5); Eosinophils % (auto) 2.7 %; Hematocrit (blood only) 45.6 % (42-52); Hemoglobin 14.4 g/dL (14.0-18.0); Immature Granulocytes # (auto) 0.03 K/uL (0.00-0.02); Immature Granulocytes % (auto) 0.3 %; Lymphocytes # (auto) 1.19 K/uL (1.2-3.4); Lymphocytes % (auto) 12.6 %; Mean Corpuscular Hemoglobin 32.4 pg (25-34); Mean Corpuscular Hgb Conc 31.6 g/dL (32-36); Mean Corpuscular Volume 102.7 fL (80-100); Mean Platelet Volume 10.7 fL (7.4-10.4); Monocytes # (auto) 0.88 K/uL (0.11-0.59); Monocytes % (auto) 9.3 %; Neutrophils % (auto) 74.9 %; Platelet Count 199 K/uL (130-400); RDW Standard Deviation 64.4 fL (36.4-46.3); Red Blood Count 4.44 M/uL (4.7-6.1); White Blood Count 9.48 K/uL (4.8-10.8)
[2019-07-18 06:23] LABS: BUN Creatinine Ratio 15.6 (10-20); Calcium 8.2 mg/dl (8.5-10.1); Creatinine Clr Calc Pharmacy 59.5 ml/min; Est GFR (African American) 52.4; Est GFR (Non-African American) 45.2; Magnesium 2.1 mg/dl (1.8-2.4); Potassium 4.7 mmol/L (3.5-5.1)
[2019-07-18] MEDS: ATENOLOL 50 MG TABLET PO SCH (08:05)
[2019-07-18] MEDS: AMLODIPINE BESYLATE 5 MG TAB PO SCH (08:07)
[2019-07-18] MEDS: ASPIRIN 81 MG ECTAB PO SCH (08:07)
[2019-07-18] MEDS: LOSARTAN POTASSIUM 50 MG TAB PO SCH (08:07)
[2019-07-18] MEDS: FUROSEMIDE 40 MG in SYRINGE 0 ML IV SCH (09:54)
--- NOTE | 2019-07-18 11:32 | Cardiology Progress Note ---
Date of Service July 18, 2019 Assessment & Plan (1) Acute diastolic (congestive) heart failure: (2) Bifascicular block: (3) Coronary artery disease: Echo performed yesterday with normal LVEF. Pt diuresed another 3 L yesterday. Creatinine has trended up to 1.5 mg /dl. Will reduce Iv furosemide dose from 40mg twice daily to one time per day and will repeat BMP in am. EKG reveals stable findings. Will need daily oral diuretic at discharge. Continue lovenox for DVT prophylaxis. Subjective Chief complaint: Follow-up shortness of breath lower extremity edema Subjective: Patient without complaints at present. Legs are marginally improved but not much. He is sitting in the bedside chair, and he states that he typically sleeps in a recliner at home. He tried to prop up his legs yesterday, but he had "charley horses ". He tells me that he had not been taking any diuretic at home for weeks. Physical Exam Physical Exam: Temp Pulse Resp BP Pulse Ox 36.9 C 74 18 140/59 L 98 07/18/19 11:27 07/18/19 11:27 07/18/19 11:27 07/18/19 11:27 07/18/19 11:27 Constitutional: WD/WN, vitals as above Respiratory: Auscultation: + diminished lung sounds (Decreased breath sounds the bases) Cardiovascular: Rate/Rhythm: regular rate Vessels: + JVD Extremities: + edema (2+ bilateral lower extremity edema) Gastrointestinal (Abdomen): normal bowel sounds, soft, nontender, no hepatosplenomegaly Neurologic: PERRL, EOMI, accommodation nl, no face palsy, no dysarthria Results & Data Vital Signs (Past 12 Hours) Vital Signs Temp Pulse Resp BP Pulse Ox 07/18/19 11:27 36.9 C 74 18 140/59 L 98 07/18/19 07:40 36.6 C 66 18 144/63 H 94 07/18/19 03:52 36.6 C 67 18 147/73 H 93 07/18/19 00:11 36.7 C 74 16 109/59 L 91 Laboratory Results CBC 07/18/19 Range/Units 05:25 WBC 9.48 (4.8-10.8) K/uL RBC 4.44 L (4.7-6.1) M/uL Hgb 14.4 (14.0-18.0) g/dL Hct 45.6 (42-52) % Plt Count 199 (130-400) K/uL Neut # (Auto) 7.10 H (1.4-6.5) K/uL Lymph # (Auto) 1.19 L (1.2-3.4) K/uL Power # (Auto) 0.88 H (0.11-0.59) K/uL Eos # (Auto) 0.26 (0-0.5) K/uL Baso # (Auto) 0.02 (0-0.2) K/uL Comprehensive Metabolic Panel 07/18/19 Range/Units 05:25 Sodium 140 (136-145) mmol/L Potassium 4.7 (3.5-5.1) mmol/L Chloride 101 (98-107) mmol/L Carbon Dioxide 36 H (21-32) mmol/L BUN 23 H D (7-18) mg/dl Creatinine 1.50 H (0.6-1.4) mg/dl Glucose 94 (70-99) mg/dl Calcium 8.2 L (8.5-10.1) mg/dl Intake and Output 07/17/19 07/18/19 07/18/19 22:59 06:59 14:59 Intake Total 1114 500 2054 250 / 250 Output Total 2375 / 3000 250 / 3000 Balance -1260 / -945 250 / -945 250 / 250 Intake: Oral 1114 250 / 250 Output: Urine 2375 / 3000 250 / 3000 Other: Weight 127.8 kg
--- NOTE | 2019-07-18 16:02 | Hospitalist Progress Note ---
Date of Service July 18, 2019 Assessment & Plan (1) Acute exacerbation of CHF (congestive heart failure): Acute on chronic diastolic heart failure exacerbation per admitting service notes: -patient presenting from home with reports of lower extremity edema and shortness of breath -CXR shows CHF, proBNP 1655 repeat echo: preserved EF diuresing wekk decreased lasix to 40mg IV daily for elevated creatinine continue to monitor (2) Acute respiratory failure with hypoxia: -on presentation, 83% on room air requiring 2L of oxygen - weaned off oxygen (3) Chronic kidney disease, stage 3: Acute Kidney Injury on CKD 3 crea increased from 1.3 to 1.5 lasix reduced monitor (4) Chest pain: Related to volume overload resolved ACS ruled out (5) Coronary artery disease: -continue ASA, beta irais, ARB; noted to be statin intolerant (6) Hypertension: -BP improved -continue atenolol, amlodipine, terazosin, and losartan (7) DVT prophylaxis: -SQ Lovenox Admission and Anticipated Discharge Date Admission Date: July 16, 2019 Subjective ff up for acute on chronic diastolic CHF exacerbation seen resting in bedside chair, not in in distress, comfortable states he continues to feel improved denies dyspnea, chest pain, cough no other symptoms Review of Systems Review of Systems: All systems reviewed & are unremarkable except as noted in HPI & below Physical Exam Physical Exam: General- oriented x 3, not in distress, speaks in sentences with no effort or accessory muscle use Head- atraumatic Eyes- PERRL, EOMI, anicteric ENT- oropharynx clear Neck- supple, no JVD, no adenopathy, no thyromegaly; carotids +2/2, no bruits appreciated Lungs- clear to auscultation bilaterally, no rales/wheezes Heart- normal rate, regular rhythm; no murmur, no gallop, no rub appreciated Abdomen- normal bowel sounds, nondistended, soft, nontender, no masses or hepatosplenomegaly Extremities-grade 1-2 bilateral lower leg edema with erythema- no warmth/tenderness, no calf tenderness; peripheral pulses intact Neuro- alert, oriented x 3; CN 2-12 grossly intact; motor 5/5 bilaterally;sensation 100% on all extremities; no other gross focal neurologic deficits Skin- warm & dry Results & Data Results & Data ([facility]) Vital Signs (Past 12 Hours) Vital Signs Temp Pulse Resp BP Pulse Ox 07/18/19 15:30 36.6 C 59 L 18 148/69 H 90 07/18/19 11:27 36.9 C 74 18 140/59 L 98 07/18/19 07:40 36.6 C 66 18 144/63 H 94 Laboratory Results Laboratory Results - last 24 hr 07/17/19 07/17/19 07/18/19 16:21 20:26 05:25 WBC 9.48 RBC 4.44 L Hgb 14.4 Hct 45.6 MCV 102.7 H MCH 32.4 MCHC 31.6 L RDW Std Deviation 64.4 H RDW Coeff of Sabrina 17.0 H Plt Count 199 MPV 10.7 H Immature Gran % (Auto) 0.3 Neut % (Auto) 74.9 Lymph % (Auto) 12.6 [place] % (Auto) 9.3 Eos % (Auto) 2.7 Baso % (Auto) 0.2 Immature Gran # (Auto) 0.03 H Neut # (Auto) 7.10 H Lymph # (Auto) 1.19 L [place] # (Auto) 0.88 H Eos # (Auto) 0.26 Baso # (Auto) 0.02 Sodium Potassium Chloride Carbon Dioxide Anion Gap BUN Creatinine Est Cr Clr Drug Dosing Est GFR ( Amer) Est GFR (Non-Af Amer) BUN/Creatinine Ratio Glucose POC Glucose 84 126 H Calcium Magnesium 07/18/19 07/18/19 05:25 07:29 WBC RBC Hgb Hct MCV MCH MCHC RDW Std Deviation RDW Coeff of Sabrina Plt Count MPV Immature Gran % (Auto) Neut % (Auto) Lymph % (Auto) [place] % (Auto) Eos % (Auto) Baso % (Auto) Immature Gran # (Auto) Neut # (Auto) Lymph # (Auto) [place] # (Auto) Eos # (Auto) Baso # (Auto) Sodium 140 Potassium 4.7 Chloride 101 Carbon Dioxide 36 H Anion Gap 3.0 BUN 23 H D Creatinine 1.50 H Est Cr Clr Drug Dosing 59.5 Est GFR ( Amer) 52.4 Est GFR (Non-Af Amer) 45.2 BUN/Creatinine Ratio 15.6 Glucose 94 POC Glucose 89 Calcium 8.2 L Magnesium 2.1 (1) Acute exacerbation of CHF (congestive heart failure) Heart failure type: unspecified Qualified Code(s): I50.9 - Heart failure, unspecified (2) Chest pain Chest pain type: unspecified Qualified Code(s): R07.9 - Chest pain, unspecified
--- NOTE | 2019-07-18 16:16 | Electrocardiogram Report ---
Test Reason : Blood Pressure : / mmHG Vent. Rate : 072 BPM Atrial Rate : 072 BPM P-R Int : 158 ms QRS Dur : 114 ms QT Int : 400 ms P-R-T Axes : 000 -45 014 degrees QTc Int : 438 ms Normal sinus rhythm with sinus arrhythmia Incomplete right bundle branch block Left anterior fascicular block Abnormal ECG When compared with ECG of 17-JUL-2019 06:48, Premature atrial complexes are no longer Present Confirmed by Michael Davila ([id number]) on 07/18/2019 4:15:57 PM Referred By: Pedro House Confirmed By:Killian Davila
[2019-07-18] MEDS: TERAZOSIN HCL 1 MG CAP PO SCH (20:18)
[2019-07-18] MEDS: ENOXAPARIN INJ 40 MG/0.4 ML SYR SQ SCH (22:39)
[2019-07-19 07:01] LABS: Calcium 8.8 mg/dl (8.5-10.1)
[2019-07-19 07:02] LABS: BUN Creatinine Ratio 21.1 (10-20); Creatinine Clr Calc Pharmacy 60.8 ml/min; Est GFR (African American) 54.1; Est GFR (Non-African American) 46.7; Potassium 4.5 mmol/L (3.5-5.1)
[2019-07-19] MEDS: AMLODIPINE BESYLATE 5 MG TAB PO SCH (07:39)
[2019-07-19] MEDS: ATENOLOL 50 MG TABLET PO SCH (07:40)
[2019-07-19] MEDS: LOSARTAN POTASSIUM 50 MG TAB PO SCH (07:40)
[2019-07-19] MEDS: ASPIRIN 81 MG ECTAB PO SCH (07:41)
--- NOTE | 2019-07-19 09:47 | Cardiology Progress Note ---
Date of Service July 19, 2019 Assessment & Plan (1) Acute diastolic (congestive) heart failure: (2) Bifascicular block: diuresed another 1.6 L yesterday. Creatinine 1.5--->1.45 today. Continue furosemide 40 mg IV x 1. Discussed need to elevate his leg with his nurse. Continue present therapy. Lovenox SQ for DVT prophylaxis. Subjective CC: follow up shortness of breath, edema Subjective: Still with significant edema. No chest pain. No SOB at rest. Physical Exam Physical Exam: Temp Pulse Resp BP Pulse Ox 36.6 C 62 18 142/77 H 93 07/19/19 07:09 07/19/19 07:09 07/19/19 07:09 07/19/19 07:09 07/19/19 07:09 Constitutional: + obese; no acute distress Respiratory: Auscultation: + diminished lung sounds (mildly decreased BS at bases ) Cardiovascular: RRR, no murmur, no edema Skin: LE erythema Neurologic: PERRL, EOMI, accommodation nl, no face palsy, no dysarthria Results & Data Vital Signs (Past 12 Hours) Vital Signs Temp Pulse Resp BP BP Pulse Ox 07/19/19 07:09 36.6 C 62 18 142/77 H 93 07/19/19 04:55 36.4 C L 60 18 152/65 H 95 07/18/19 23:59 36.7 C 65 18 150/68 H 95 Laboratory Results Comprehensive Metabolic Panel 07/19/19 Range/Units 05:49 Sodium 136 (136-145) mmol/L Potassium 4.5 (3.5-5.1) mmol/L Chloride 96 L (98-107) mmol/L Carbon Dioxide 36 H (21-32) mmol/L BUN 31 H (7-18) mg/dl Creatinine 1.46 H (0.6-1.4) mg/dl Glucose 89 (70-99) mg/dl Calcium 8.8 (8.5-10.1) mg/dl Intake and Output 07/18/19 07/19/19 07/19/19 22:59 06:59 14:59 Intake Total 500 / 1175 100 / 1175 Output Total 550 / 1600 Balance -50 / -425 100 / -425 Intake: Oral 500 / 1175 100 / 1175 Output: Urine 550 / 1600 Other: Weight 129.2 kg
[2019-07-19] MEDS: FUROSEMIDE 40 MG in SYRINGE 0 ML IV SCH (10:25)
--- NOTE | 2019-07-19 17:06 | Hospitalist Progress Note ---
Date of Service July 19, 2019 Assessment & Plan (1) Acute exacerbation of CHF (congestive heart failure): Patient is a 74-year-old male with history of coronary disease, hypertension CKD 3 who presented with shortness of breath and extremity edema x2 weeks. Acute on chronic diastolic heart failure exacerbation per admitting service notes: -patient presenting from home with reports of lower extremity edema and shortness of breath -CXR shows CHF, proBNP 1655 repeat echo: preserved EF diuresing well but still remains on 2 L of nasal cannula, also with persistent bilateral lower extremity edema Creatinine improved from 1.5 to 1.4 Continue Lasix 40 mg IV daily Monitor (2) Acute respiratory failure with hypoxia: -on presentation, 83% on room air requiring 2L of oxygen -2 L of nasal cannula, continue to titrate and wean off (3) Chronic kidney disease, stage 3: Acute Kidney Injury on CKD 3 crea increased from 1.3 to 1.5, now 1.4 lasix reduced to 40 mg IV daily monitor (4) Chest pain: Related to volume overload resolved ACS ruled out (5) Coronary artery disease: -continue ASA, beta irais, ARB; noted to be statin intolerant (6) Hypertension: -BP improved -continue atenolol, amlodipine, terazosin, and losartan (7) DVT prophylaxis: -SQ Lovenox Disposition: PT and OT evaluation ordered Patient lives with family at home Anticipate discharge to home medically stable with home services, possibly portable oxygen Admission and Anticipated Discharge Date Admission Date: July 16, 2019 Subjective Follow-up for CHF exacerbation Seen sitting up in bed, back on 2 L of nasal cannula States he continues to feel improved day by day No shortness of breath, chest pain, palpitations, dizziness, leg pain No other symptoms Review of Systems Review of Systems: All systems reviewed & are unremarkable except as noted in HPI & below Physical Exam Physical Exam: General- oriented x 3, not in distress, speaks in sentences wi th no effort or accessory muscle use Eyes- anicteric Neck- no JVD Lungs-mildly decreased breath bilaterally, no crackles, no wheezing Heart- normal rate, regular rhythm; no murmurs Abdomen- normal bowel sounds, nondistended, soft, nontender Extremities-grade 2 bilateral lower extremity edema, with erythema, no warmth, no tenderness, no calf tenderness Neuro- alert, oriented x 3; no gross focal neurologic deficits Skin- warm & dry Results & Data Results & Data ([facility]) Vital Signs (Past 12 Hours) Vital Signs Temp Pulse Resp BP BP Pulse Ox 07/19/19 15:13 36.6 C 64 16 109/56 L 92 07/19/19 10:53 36.9 C 69 17 121/69 93 07/19/19 07:09 36.6 C 62 18 142/77 H 93 Laboratory Results Laboratory Results - last 24 hr 07/19/19 05:49 Sodium 136 Potassium 4.5 Chloride 96 L Carbon Dioxide 36 H Anion Gap 4.0 BUN 31 H Creatinine 1.46 H Est Cr Clr Drug Dosing 60.8 Est GFR ( Amer) 54.1 Est GFR (Non-Af Amer) 46.7 BUN/Creatinine Ratio 21.1 H Glucose 89 Calcium 8.8 (1) Acute exacerbation of CHF (congestive heart failure) Heart failure type: unspecified Qualified Code(s): I50.9 - Heart failure, unspecified (2) Chest pain Chest pain type: unspecified Qualified Code(s): R07.9 - Chest pain, unspecified
[2019-07-19] MEDS: TERAZOSIN HCL 1 MG CAP PO SCH (20:24)
[2019-07-19] MEDS: ENOXAPARIN INJ 40 MG/0.4 ML SYR SQ SCH (22:53)
[2019-07-20] MEDS: ATENOLOL 50 MG TABLET PO SCH (08:18)
[2019-07-20] MEDS: ASPIRIN 81 MG ECTAB PO SCH (08:18)
[2019-07-20] MEDS: AMLODIPINE BESYLATE 5 MG TAB PO SCH (08:18)
[2019-07-20] MEDS: LOSARTAN POTASSIUM 50 MG TAB PO SCH (08:18)
[2019-07-20] MEDS: FUROSEMIDE 40 MG in SYRINGE 0 ML IV SCH (08:34)
--- NOTE | 2019-07-20 10:00 | Cardiology Progress Note ---
Date of Service July 20, 2019 Assessment & Plan (1) Acute diastolic (congestive) heart failure: (2) Bifascicular block: (3) Chronic kidney disease, stage 3: Diuresed 1.7 L yesterday. Pt eager for discharge. I reviewed his outpatient records. Has history of nonadherence. Was previously on furosemide , DC'd in 2018. Obtain BMP now. If stable, plan on discharge on torsemide 20 mg daily. Per my discussion with the patient his LE edema has been present for months , so I do not think we will get this better in the hospital. Will DC amlodipine as it may be contributing to the edema, and increase his hytrin to 2 mg daily at bedtime. Cardio follow up in 2-3 weeks as outpatient. Subjective Chief complaint: Follow-up shortness of breath, volume overload Subjective: Patient once again sitting upright in the chair. Ongoing lower ex tremity edema. Telemetry reveals sinus rhythm with premature atrial contractions in the 60 to 80 bpm range. Physical Exam Physical Exam: Temp Pulse Resp BP Pulse Ox 37.2 C 68 18 155/73 H 90 07/20/19 07:45 07/20/19 08:00 07/20/19 07:45 07/20/19 07:45 07/20/19 07:45 Constitutional: WD/WN, vitals as above Cardiovascular: Rate/Rhythm: regular rate Extremities: + edema (2+ edema lower extremity erythema) Gastrointestinal (Abdomen): normal bowel sounds, soft, nontender, no hepatosplenomegaly Neurologic: PERRL, EOMI, accommodation nl, no face palsy, no dysarthria Results & Data Vital Signs (Past 12 Hours) Vital Signs Temp Pulse Pulse Resp BP BP Pulse Ox 07/20/19 08:00 68 07/20/19 07:45 37.2 C 83 18 155/73 H 90 07/20/19 03:49 36.7 C 73 18 130/66 95 07/20/19 01:32 68 07/19/19 23:40 36.7 C 68 18 137/66 91
[2019-07-20 11:01] VITALS: BP 118/70; TEMP 98.2
[2019-07-20 11:02] LABS: BUN Creatinine Ratio 22.3 (10-20); Calcium 8.2 mg/dl (8.5-10.1); Creatinine Clr Calc Pharmacy 62.7 ml/min; Est GFR (Non-African American) 48.3; Potassium 4.9 mmol/L (3.5-5.1)
--- NOTE | 2019-07-20 11:06 | Communication Note ---
Date of Service: July 20, 2019 Creatinine stable at 1.42. OK for discharge on medication as per progress note.
--- NOTE | 2019-07-20 14:23 | Hospitalist Progress Note ---
Date of Service July 20, 2019 Assessment & Plan (1) Acute exacerbation of CHF (congestive heart failure): Patient is a 74-year-old male with history of coronary disease, hypertension CKD 3 who presented with shortness of breath and extremity edema x2 weeks. Acute on chronic diastolic heart failure exacerbation per admitting service notes: -patient presenting from home with reports of lower extremity edema and shortness of breath -CXR shows CHF, proBNP 1655 repeat echo: preserved EF [facility] magistrate Dr. Swartz was consulted Patient was given Lasix IV cautiously Patient diuresed fairly At one point creatinine increased to 1.5, improved to 1.4 on discharge day Still requiring 2 L of nasal cannula, still has significant lower leg edema patient requesting to be discharged Discharge plan: Start torsemide 20 mg p.o. daily Increase terazosin to 2 mg daily from 1 mg daily, at bedtime Discontinue amlodipine which could be contributing to her leg edema Follow-up with [facility] cardiology clinic Dr. Swartz in 2 to 3 weeks (2) Acute respiratory failure with hypoxia: -on presentation, 83% on room air requiring 2L of oxygen -Secondary to #1 - Two-step exercise test reveals patient is requiring oxygen 2 L at rest and 3 L with ambulation Oxygen supplementation via nasal cannula arranged by case management Titrate and wean off accordingly as outpatient Patient advised to follow-up with primary care physician next week (3) Chronic kidney disease, stage 3: Acute Kidney Injury on CKD 3 crea increased from 1.3 to 1.5, now 1.4 Patient to be discharged on torsemide 20 mg p.o. daily Please repeat basic metabolic profile on follow-up with PCP next week (4) Chest pain: Related to volume overload resolved Acute coronary syndrome ruled out (5) Coronary artery disease: -continue ASA, beta irais, ARB; noted to be statin intolerant (6) Hypertension: -BP improved -Cardiology recommends: DC amlodipine due to possible contribution for lower extremity edema Increase terazosin to 2 mg p.o. daily -continue atenolol and losartan (7) DVT prophylaxis: -SQ Lovenox given Disposition: PT and OT evaluation ordered-recommend to be discharged home discharge to home with home health services, portable oxygen Follow-up with primary care physician next week Follow-up with [facility] magistrate Dr. Swartz in 2 to 3 weeks Admission and Anticipated Discharge Date Admission Date: July 16, 2019 Subjective Follow-up for CHF exacerbation Seen sitting up in bedside chair, comfortable, not in distress, on 2 L of nasal cannula States he feels fine overall Denies active shortness of breath No chest pain, palpitations, dizziness States that he would like to be discharged today Review of Systems Review of Systems: All systems reviewed & are unremarkable except as noted in HPI & below Physical Exam Physical Exam: General- oriented x 3, not in distress, speaks in sentences with no effort or accessory muscle use Eyes- anicteric Neck- no JVD Lungs- clear breath sounds bilaterally, no crackles, no wheezing bilaterally Heart- normal rate, regular rhythm; no murmurs Abdomen- normal bowel sounds, nondistended, soft, nontender Extremities-grade 2 lower leg edema with erythema bilaterally but no warmth, no tenderness, no calf tenderness Neuro- alert, oriented x 3; no gross focal neurologic deficits Skin- warm & dry Results & Data Results & Data ([facility]) Vital Signs (Past 12 Hours) Vital Signs Temp Pulse Pulse Pulse Pulse Pulse Pulse 07/20/19 11:20 77 73 74 80 07/20/19 11:00 36.8 C 74 07/20/19 09:45 07/20/19 08:00 68 07/20/19 07:45 37.2 C 83 07/20/19 03:49 36.7 C 73 Pulse Resp Resp Resp Resp Resp Resp 07/20/19 11:20 75 18 20 20 18 16 07/20/19 11:00 18 07/20/19 09:45 07/20/19 08:00 07/20/19 07:45 18 07/20/19 03:49 18 BP BP Pulse Ox Pulse Ox Pulse Ox Pulse Ox Pulse Ox 07/20/19 11:20 92 93 88 L 92 07/20/19 11:00 118/70 94 07/20/19 09:45 72 L 07/20/19 08:00 07/20/19 07:45 155/73 H 90 07/20/19 03:49 130/66 95 Pulse Ox 07/20/19 11:20 84 L 07/20/19 11:00 07/20/19 09:45 07/20/19 08:00 07/20/19 07:45 07/20/19 03:49 Laboratory Results Laboratory Results - last 24 hr 07/20/19 10:19 Sodium 137 Potassium 4.9 Chloride 96 L Carbon Dioxide 38 H Anion Gap 3.0 BUN 32 H Creatinine 1.42 H Est Cr Clr Drug Dosing 62.7 Est GFR ( Amer) 56.0 Est GFR (Non-Af Amer) 48.3 BUN/Creatinine Ratio 22.3 H Glucose 99 Calcium 8.2 L (1) Acute exacerbation of CHF (congestive heart failure) Heart failure type: unspecified Qualified Code(s): I50.9 - Heart failure, unspecified (2) Chest pain Chest pain type: unspecified Qualified Code(s): R07.9 - Chest pain, unspecified
[2019-07-20 14:27] VITALS: PULSE 74; O2SAT 94
--- NOTE | 2019-07-20 15:15 | Discharge Summary ---
Date of Service July 20, 2019 Admission HPI Per Admitting Provider 74 year old male with PMH CAD, HTN, psoriasis, and other problems listed below who presents to the ED with reports of lower extremity edema and shortness of breath. Patient reports symptoms have been ongoing for the past two weeks and progressively getting worse. Patient reports shortness of breath with minimal exertion. He reports orthopnea, worsening lower extremity edema, and abdominal distention. He has had associated chest pain that he reports has been persistent. Pain is located substernally and patient describes it as a tightness. He has nitro at home however did not take any doses. He does not weigh himself on a routine basis. Patient denies lightheadedness, dizziness, diaphoresis, or syncopal events. No abdominal pain, nausea, vomiting, or diarrhea. Denies cough and sputum production. No fevers or chills. Denies urinary symptoms. In the ED, patient is found to be hypoxic on room air at 83%. This improved with oxygen 2L via NC. CXR shows CHF. Initial trop is negative and EKG does not show any acute ST changes. Patient was given Lasix 40mg IV and 0.5 inch nitro paste. Admission Exam Per Admitting Provider Constitutional: WD/WN, vitals as above + obese Eyes: PERRL, conjunctivae normal, anicteric sclerae ENMT: external ear and nose normal, oropharynx normal Respiratory: + abnormal respiratory effort (poor inspiratory effort) and no respiratory distress Auscultation: + diminished lung sounds Cardiovascular: Rate/Rhythm: regular rate and regular rhythm Vessels: normal peripheral pulses Extremities: + edema (+3-4 pitting edema BLE ) Gastrointestinal (Abdomen): normal bowel sounds, soft, nontender, no hepatosplenomegaly Inspection/Auscultation: + abdomen distended Musculoskeletal: no cyanosis or clubbing, extremities motor strength 5/5 Skin: no rashes, warm and dry Neurologic: PERRL, EOMI, accommodation nl, no face palsy, no dysarthria Psychiatric: A+Ox3, euthymic affect Principal Diagnosis Acute on chronic diastolic congestive heart failure exacerbation Discharge Exam General- oriented x 3, not in distress, speaks in sentences with no effort or accessory muscle use Eyes- anicteric Neck- no JVD Lungs- clear breath sounds bilaterally, no crackles, no wheezing bilaterally Heart- normal rate, regular rhythm; no murmurs Abdomen- normal bowel sounds, nondistended, soft, nontender Extremities-grade 2 lower leg edema with erythema bilaterally but no warmth, no tenderness, no calf tenderness Neuro- alert, oriented x 3; no gross focal neurologic deficits Skin- warm & dry Discharge Data Allergies Allergy/AdvReac Type Severity Reaction Status Date / Time No Known Allergies Allergy Verified 07/16/19 21:27 [id number] Allergy Unknown Unknown Uncoded 07/16/19 21:25 Consultations 07/16/19 20:02 ED Decision to Admit Stat 07/16/19 22:28 Consult Cardiology Routine Consult Case Management - Discharge Planning Routine Ordered Studies Chest x-ray July 16, 2019: SINGLE VIEW CHEST CLINICAL HISTORY: Atypical chest pain. FINDINGS: An AP, portable, upright chest radiograph is correlated with chest CT dated 07/02/2008. The examination is degraded by portable technique and patient rotation. The heart is enlarged noting atherosclerotic calcification of the thoracic aorta. There is pulmonary vascular congestion. There are small pleural effusions with bibasilar consolidation. No pneumothorax is seen. The skeletal structures are osteopenic. The bony thorax is grossly intact. IMPRESSION: 1. Cardiomegaly with evidence of congestive failure. 2. Small pleural effusions with bibasilar consolidation. This likely represents atelectasis and clinical correlation will be required. Hospital Course (1) Acute exacerbation of CHF (congestive heart failure): Patient is a 74-year-old male with history of coronary disease, hypertension CKD 3 who presented with shortness of breath and extremity edema x2 weeks. Acute on chronic diastolic heart failure exacerbation per admitting service notes: -patient presenting from home with reports of lower extremity edema and shortness of breath -CXR shows CHF, proBNP 1655 repeat echo: Mild concentric LVH, left ventricular wall motion is normal, eje ction fraction 55 to 60%, right ventricular chamber size and systolic function are grossly normal on limited visualization Grade 2 diastolic dysfunction [facility] ad operations coordinator Dr. Swartz was consulted Patient was given Lasix IV cautiously Patient diuresed fairly At one point creatinine increased to 1.5, improved to 1.4 on discharge day Still requiring 2 L of nasal cannula, still has significant lower leg edema patient requesting to be discharged, will need to proceed with diuresis cautiously in light of CKD stage III Recommendations by cardiology service, discharge plan: Start torsemide 20 mg p.o. daily Increase terazosin to 2 mg daily from 1 mg daily, at bedtime Discontinue amlodipine which could be contributing to her leg edema Follow-up with [facility] cardiology clinic Dr. Swartz in 2 to 3 weeks (2) Acute respiratory failure with hypoxia: -on presentation, 83% on room air requiring 2L of oxygen -Secondary to #1 - Two-step exercise test reveals patient is requiring oxygen 2 L at rest and 3 L with ambulation Oxygen supplementation via nasal cannula arranged by case management Titrate and wean off accordingly as outpatient Patient advised to follow-up with primary care physician next week (3) Chronic kidney disease, stage 3: Acute Kidney Injury on CKD 3 crea increased from 1.3 to 1.5, now 1.4 Patient to be discharged on torsemide 20 mg p.o. daily Please repeat basic metabolic profile on follow-up with PCP next week (4) Chest pain: Related to volume overload resolved Acute coronary syndrome ruled out (5) Coronary artery disease: -continue ASA, beta irais, ARB; noted to be statin intolerant (6) Hypertension: -BP improved -Cardiology recommends: DC amlodipine due to possible contribution for lower extremity edema Increase terazosin to 2 mg p.o. daily -continue atenolol and losartan -Monitor BP as outpatient (7) DVT prophylaxis: -SQ Lovenox given Disposition: PT and OT evaluation ordered-recommend to be discharged home discharge to home with home health services, portable oxygen Follow-up with primary care physician next week Follow-up with [facility] ad operations coordinator Dr. Swartz in 2 to 3 weeks Total Time Total Time Spent Total Time Spent (In Minutes): 55 minutes Discharge Plan Discharge Items Patient Disposition: Home - Home Health Services Reason For Visit: CHF, HYPOXIA Discharge Diagnosis: Acute on chronic congestive heart failure exacerbation Condition on Discharge: Good Activity: Resume your previous activity Activity Comment: Activity gradually as tolerated, always use portable oxygen Lifting: Wait until after follow-up appointment Exercise/Sports: Wait until after follow-up appointment Driving/Machine Use: No driving until reevaluated and allowed by primary care physician Non-emergency contact: Primary Care Provider Call non-emergency contact if: you have any medication questions, your symptoms worsen and you have a fever Follow-up/Referrals: Pedro [facility] [Physician Obgyn Hospitalist Physician] - Everardo Ervin [Primary Care Provider] - Diet: Heart Healthy Addtl Attending Provider Instructions: Please review your new medication list and follow instructions carefully. Your new medication is torsemide-diuretic for congestive heart failure. Please discontinue amlodipine. Increase terazosin from 1 mg to 2 mg daily. Do not take medications under the class of NSAIDs including ibuprofen, naproxen, etc. Follow-up with your primary care physician next week. Please have them obtain your discharge summary for [facility] prior to your visit. You also need to have repeat blood work with your primary care physician next week-basic metabolic panel. Follow-up with [facility] cardiology clinic in 2 to 3 weeks. Please call their office for an appointment. ____ Call your Primary Care doctor if any of the following symptoms or problems start or get worse: Shortness of breath or difficulty breathing Wake up at night short of breath Chest pain Cough Swelling of your hands, feet, or legs More fatigued or tired with your normal activity Palpitations - sudden fast heart beats WEIGHT Weigh yourself every morning after using the bathroom. Use the same scale. Wear the same amount of clothing. Write your weight down on a chart. Call your Primary Care doctor if you gain more than 2-3 pounds in 1-2 days. MEDICATIONS Use this discharge instruction sheet for medication instructions. Take your medications at the time your doctor ordered. Do not skip a dose of your medicines. If you miss a dose of medicine, take it as soon as possible, but DO NOT DOUBLE A DOSE. Read your medicine information when you get home. Know all of the side effects of your medicine. If in doubt, ask your pharmacist Call your Primary Care doctor's office if you have any side effects. Be sure all of your doctors know what medicine and herbs you take (including cold, flu, and herbal medicine). Take the following with you to your follow-up doctor appointments: Weight Chart Medication List List of questions Do not drink excessive alcohol, beer or wine. Who to Call and When: Call 911 or go to the Emergency Room if: If at any time you feel your situation is an emergency You have tightness or pain in your chest that does not go away with rest or Nitroglycerin You are very short of breath even with rest. Pending Studies at Discharge: Yes Studies:: Repeat blood work-basic metabolic panel-on follow-up with your primary care physician next week. Stand-Alone Forms: My [facility] [employer], Smoking Cessation Medications and DC Order Prescriptions: New torsemide 10 mg Tablet 20 mg PO QAM Qty: 60 RF: 2 terazosin 1 mg Capsule 2 mg PO HS Qty: 30 RF: 2 Continued aspirin 81 mg Tablet,Delayed Release (Dr/Ec) 162 mg PO DAILY RF: 0 losartan 100 mg tablet 100 mg PO DAILY RF: 0 atenolol 50 mg tablet 50 mg PO DAILY RF: 0 Stelara 90 mg/mL syringe 90 mg SUBCUT UD RF: 0 Discontinued amlodipine 2.5 mg tablet 2.5 mg PO DAILY RF: 0 terazosin 1 mg capsule 1 mg PO HS RF: 0 Discharge Orders: Discharge Order (Routine); Ordered 07/20/19 Ordered By: Chase Evans Admission Data Admit Date/Time: 07/16/19 20:13 Attending Provider: Chase Evans Admit Provider: Julio Boykin Primary Care Provider: Everardo Ervin Other Providers: Julio Boykin ; Everardo Salcedo ; Gaston Otero Other Interventions: Discharge Summary Assessment (RN) Last Done: 07/20/19 14:25
[2019-07-20] MEDS ORDERED: TERAZOSIN HCL 1 MG CAP PO SCH (21:00)
[2019-07-21] MEDS ORDERED: TORSEMIDE 10 MG TAB PO SCH (09:00)
== END 2019-07-20 15:18 | disposition home or self-care (01) | DRG 291 ==
LOC: ED 17:25 → 2S 20:13 → SUATTDRO 20:13 → 2S 21:53

== ENCOUNTER 2021-06-23 22:33 | Inpatient (IN) ==
--- NOTE | 2021-06-23 23:29 | Emergency Department Note ---
Impression & Plan Hypoxia ADMIT ED Provider Note HPI: The patient is a 76-year-old gentleman with history of chronic kidney disease, diastolic heart failure, presents the emergency department with a chief complaint of generalized weakness. Patient states that earlier tonight he was trying to get out of a chair and he was too weak to get out of the chair and then slid to the ground. His then contacted EMS for the patient to be transported to the ED. He denies any focal complaint of pain, states he did not really "fall" but rather slid out of his chair. His is concerned because he has been more weak than usual at home recently, he does not ambulate much around the house. He has seemingly been more short of breath recently. Patient denies any chest pain or shortness of breath currently. He was noted to be hypoxic at 89% on room air on arrival and therefore was placed on nasal cannula oxygen with good improvement. On my initial assessment he is in no acute di stress. 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, states he was also in the warm weather mowing the lawn yesterday on the riding mower and his tells me that this "wore him out" ROS: -General: Generalized weakness, difficulty with ambulation -Pulmonary: Shortness of breath on arrival/hypoxia *10 point review systems was conducted and is otherwise negative unless stated above *Outpatient medications and allergy history reviewed PE: General: Alert, NAD, obese HEENT: Normocephalic, atraumatic Eyes: Extraocular eye movement is intact, no scleral erythema Pulmonary: Diminished breath sounds bilaterally without wheezing or crackles Cardio: Regular rate and rhythm GI: Abdomen is soft, nontender : No suprapubic tenderness MSK: No evidence of trauma or malformation of the extremities, 2-3 + edema b/l LE Skin: No evidence of rash Neuro: Alert, no focal deficits Psychiatric: Cooperative legal biller: - An order was placed for continuous cardiac monitoring - Patient was noted to be in sinus rhythm with rate of 95 EKG: Rate: 100 Rhythm: Normal sinus rhythm Intervals: QRS interval 1 7 2 ms, QTC 503 ms, MA interval 166ms ST changes: No ST elevation Time: 2239 Medical Decision Making: The patient is a 76-year-old gentleman with history of diastolic heart failure, chronic kidney disease, presents emergency department chief complaint of generalized weakness, states he "slid" out of a chair today when he was feeling very weak and felt like he could not completely get up out of the chair. He does have a diagnosis of early Parkinson's according to the patient. His at the bedside states that he has been more weak than usual at home, he has had increased difficulty with ambulation around the house and no longer uses his walker much. Shortly after arrival here to the ED IV was established, lab work obtained, patient was placed on the chair mechanic, EKG was obtained that shows no acute ischemic changes, does show evidence of right bundle branch block, patient denies any chest pain. First High-sensitivity troponin did result greater than 3000, patient is noted to have a history of CHF and is also noted to have acute on chronic kidney disease with reduced GFR, creatinine today is 1.91. He does not have any chest pain, will do delta troponin. No critical electrolyte abnormalities are noted. Chest x-ray appears to show a pattern of CHF and stable cardiomegaly. Patient was given a dose of IV Lasix here in the ED for suspected fluid overload, I do suspect this is likely the source of his hypoxia on arrival today and may be playing a role in his generalized weakness. He does have 2-3+ pitting edema of the bilateral lower extremities on my exam. COVID-19 testing will be sent, case was discussed with the on-call hospitalist f or [facility], Dr. Mascorro, and the patient was admitted in stable condition for further management. Critical care time: 35 minutes -Stabilization of hypoxia with oxygen saturation less than 90% on room air requiring supplemental oxygen for improvement, time spent at the bedside, interpretation of diagnostic studies, discussion with other healthcare providers and arrangement of admission Diagnosis: 1. Acute on chronic CHF exacerbation with hypoxia 2. Generalized weakness 3. Peripheral edema 4. Elevated high-sensitivity troponin level Disposition: Admission Pedro Valadez DO Emergency Medicine Past Med/Surg History Medical History (Updated 06/24/21 @ 00:40 by Pedro Valadez DO) Coronary artery disease 09/1999 - PTCA to OM2 Hypertension Psoriasis Statin intolerance Family History Father Kidney failure Social History Smoking Status: Never smoker Tobacco Type: Smokeless Tobacco (Dip or Chew) Hx Alcohol Use: No Hx Substance Use: No Preferred Language: Icelandic Communication Ability: Effective Beliefs That Will Affect Care: None Current Living Situation: Spouse Feels Safe at Home: Yes Assistive Devices: None Allergies Allergies Allergy/AdvReac Type Severity Reaction Status Date / Time No Known Allergies Allergy Verified 06/23/21 23:08 Home Meds Home Medications Medication Instructions Recorded Confirmed aspirin 81 mg tablet,delayed 162 mg PO DAILY 07/16/19 06/23/21 release atenolol 50 mg tablet 50 mg PO DAILY 07/16/19 06/23/21 losartan 100 mg tablet 100 mg PO DAILY 07/16/19 06/23/21 isosorbide mononitrate 60 mg 60 mg PO DAILY 06/23/21 06/23/21 tablet,extended release 24 hr Previous Rx's Medication Instructions Recorded terazosin 1 mg capsule 2 mg PO HS #30 cap 07/20/19 torsemide 10 mg tablet 20 mg PO QAM #60 tab 07/20/19 Results & Data (ED) Vital Signs Vital Signs - 24 hr 06/23/21 22:43 06/23/21 23:51 Temperature 36.6 C Temperature Source Oral Pulse Rate 100 H Pulse Rate [Left Finger] 97 H Pulse Rhythm [Left Finger] Regular Pulse Strength [Left Finger] Normal Respiratory Rate 23 20 Respiratory Effort / Characteristics Non-Labored Spontaneous Respiratory Depth Normal Normal Respiratory Pattern Regular Blood Pressure 157/79 H Blood Pressure [Left Arm] 135/64 Blood Pressure Mean 105 Blood Pressure Mean [Left Arm] 87 Blood Pressure Position [Left Arm] Lying Pulse Oximetry 89 L 97 Oxygen Delivery Method Room Air Nasal Cannula Oxygen Flow Rate 2 Sepsis Recent Fever Within 48 Hours No Sepsis New/Unexplained Change in Mental Status No Sepsis Action Taken by Nursing No Action Required Laboratory Data Result diagrams: 06/23/21 23:38 06/23/21 23:38 Lab Results 06/23/21 06/23/21 06/23/21 Range/Units 23:38 23:38 23:38 WBC 11.46 H (4.8-10.8) K/uL RBC 5.54 (4.7-6.1) M/uL Hgb 15.6 (14.0-18.0) g/dL Hct 46.9 (42-52) % MCV 84.7 (80-100) fL MCH 28.2 (25-34) pg MCHC 33.3 (32-36) g/dL RDW Std Deviation 47.6 H (36.4-46.3) fL RDW Coeff of Sabrina 15.5 H (11.5-14.5) % Plt Count 181 (130-400) K/uL MPV 11.6 H (7.4-10.4) fL Immature Gran % (Auto) 0.4 % Neut % (Auto) 91.0 % Lymph % (Auto) 4.1 % [place] % (Auto) 4.1 % Eos % (Auto) 0.3 % Baso % (Auto) 0.1 % Neut # (Auto) 10.43 H (1.4-6.5) K/uL Lymph # (Auto) 0.47 L (1.2-3.4) K/uL [place] # (Auto) 0.47 (0.11-0.59) K/uL Eos # (Auto) 0.03 (0-0.5) K/uL Baso # (Auto) 0.01 (0-0.2) K/uL Immature Gran # (Auto) 0.05 H (0.00-0.02) K/uL PT (9.0-12.0) Seconds INR (0.9-1.1) APTT (21.0-31.0) Seconds PTT Ratio VBG pH (7.36-7.41) VBG pCO2 (38-50) mmHg VBG pO2 mmHg VBG HCO3 mmol/L VBG O2 Saturation % VBG Base Excess mEq/L Sodium 139 (136-145) mmol/L Potassium 4.7 (3.5-5.1) mmol/L Chloride 100 (98-107) mmol/L Carbon Dioxide 31 (21-32) mmol/L Anion Gap 8 (3-11) BUN 31 H (6-23) mg/dl Creatinine 1.91 H (0.6-1.4) mg/dl Est Cr Clr Drug Dosing 43.9 ml/min Est GFR ( Amer) 38.6 ml/min Est GFR (Non-Af Amer) 33.3 ml/min BUN/Creatinine Ratio 16.2 (10-20) Glucose 126 H (70-99(Fasting)) mg/dl Calcium 9.3 (8.5-10.1) mg/dl Total Bilirubin 0.5 (0.2-1.0) mg/dl AST 36 (13-39) U/L ALT 25 (7-52) U/L Alkaline Phosphatase 95 (34-104) U/L Troponin I High Sens 3207.6 H* (0-20) pg/ml B-Natriuretic Peptide 722 H (0-100) pg/ml Total Protein 7.9 (6.0-8.3) gm/dl Albumin 4.0 (3.4-5.0) gm/dl Globulin 3.9 (2.5-4.0) gm/dl Albumin/Globulin Ratio 1.0 (0.9-2) 06/23/21 06/23/21 Range/Units 23:38 23:45 WBC (4.8-10.8) K/uL RBC (4.7-6.1) M/uL Hgb (14.0-18.0) g/dL Hct (42-52) % MCV (80-100) fL MCH (25-34) pg MCHC (32-36) g/dL RDW Std Deviation (36.4-46.3) fL RDW Coeff of Sabrina (11.5-14.5) % Plt Count (130-400) K/uL MPV (7.4-10.4) fL Immature Gran % (Auto) % Neut % (Auto) % Lymph % (Auto) % [place] % (Auto) % Eos % (Auto) % Baso % (Auto) % Neut # (Auto) (1.4-6.5) K/uL Lymph # (Auto) (1.2-3.4) K/uL [place] # (Auto) (0.11-0.59) K/uL Eos # (Auto) (0-0.5) K/uL Baso # (Auto) (0-0.2) K/uL Immature Gran # (Auto) (0.00-0.02) K/uL PT 10.6 (9.0-12.0) Seconds INR 1.0 (0.9-1.1) APTT 26.8 (21.0-31.0) Seconds PTT Ratio 1.0 VBG pH 7.39 (7.36-7.41) VBG pCO2 55 H (38-50) mmHg VBG pO2 25 mmHg VBG HCO3 32 mmol/L VBG O2 Saturation < 60.0 % VBG Base Excess 5.3 mEq/L Sodium (136-145) mmol/L Potassium (3.5-5.1) mmol/L Chloride (98-107) mmol/L Carbon Dioxide (21-32) mmol/L Anion Gap (3-11) BUN (6-23) mg/dl Creatinine (0.6-1.4) mg/dl Est Cr Clr Drug Dosing ml/min Est GFR ( Amer) ml/min Est GFR (Non-Af Amer) ml/min BUN/Creatinine Ratio (10-20) Glucose (70-99(Fasting)) mg/dl Calcium (8.5-10.1) mg/dl Total Bilirubin (0.2-1.0) mg/dl AST (13-39) U/L ALT (7-52) U/L Alkaline Phosphatase (34-104) U/L Troponin I High Sens (0-20) pg/ml B-Natriuretic Peptide (0-100) pg/ml Total Protein (6.0-8.3) gm/dl Albumin (3.4-5.0) gm/dl Globulin (2.5-4.0) gm/dl Albumin/Globulin Ratio (0.9-2) Discharge Plan Visit Data Chief Complaint: Weakness Stated Complaint: Weakness, Fall ED Provider: Pedro Valadez Discharge Problem: Hypoxia Forms Stand Alone Forms: My [facility] Prescriptions Prescriptions: No Action aspirin 81 mg Tablet,Delayed Release (Dr/Ec) 162 mg PO DAILY RF: 0 losartan 100 mg tablet 100 mg PO DAILY RF: 0 atenolol 50 mg tablet 50 mg PO DAILY RF: 0 torsemide 10 mg Tablet 20 mg PO QAM Qty: 60 RF: 2 terazosin 1 mg Capsule 2 mg PO HS Qty: 30 RF: 2 isosorbide mononitrate 60 mg tablet extended release 24 hr 60 mg PO DAILY RF: 0 Referrals Referrals: Everardo Ervin [Outside Practitioners] -
[2021-06-24 00:05] LABS: Basophils # (auto) 0.01 K/uL (0-0.2); Basophils % (auto) 0.1 %; Eosinophils # (auto) 0.03 K/uL (0-0.5); Eosinophils % (auto) 0.3 %; Hematocrit (blood only) 46.9 % (42-52); Hemoglobin 15.6 g/dL (14.0-18.0); Immature Granulocytes # (auto) 0.05 K/uL (0.00-0.02); Immature Granulocytes % (auto) 0.4 %; Lymphocytes # (auto) 0.47 K/uL (1.2-3.4); Lymphocytes % (auto) 4.1 %; Mean Corpuscular Hemoglobin 28.2 pg (25-34); Mean Corpuscular Hgb Conc 33.3 g/dL (32-36); Mean Corpuscular Volume 84.7 fL (80-100); Mean Platelet Volume 11.6 fL (7.4-10.4); Monocytes # (auto) 0.47 K/uL (0.11-0.59); Monocytes % (auto) 4.1 %; Neutrophils # (auto) 10.43 K/uL (1.4-6.5); Platelet Count 181 K/uL (130-400); RDW Coefficient of Variation 15.5 % (11.5-14.5); RDW Standard Deviation 47.6 fL (36.4-46.3); Red Blood Count 5.54 M/uL (4.7-6.1); White Blood Count 11.46 K/uL (4.8-10.8)
[2021-06-24 00:23] LABS: Base Excess VBG 5.3 mEq/L; HCO3 VBG 32 mmol/L; Oxygen Saturation VBG < 60.0 %; PCO2 VBG 55 mmHg (38-50); PO2 VBG 25 mmHg; pH VBG 7.39 (7.36-7.41)
[2021-06-24] MEDS ORDERED: FUROSEMIDE 40 MG/4 ML VIAL IV ONE (00:23)
[2021-06-24 00:25] LABS: BUN Creatinine Ratio 16.2 (10-20); Bilirubin,Total 0.5 mg/dl (0.2-1.0); Calcium 9.3 mg/dl (8.5-10.1); Creatinine Clr Calc Pharmacy 43.9 ml/min; Est GFR (African American) 38.6 ml/min; Est GFR (Non-African American) 33.3 ml/min; Globulin 3.9 gm/dl (2.5-4.0); Partial Thromboplastin Time 26.8 Seconds (21.0-31.0); Potassium 4.7 mmol/L (3.5-5.1); Prothrombin Time 10.6 Seconds (9.0-12.0); Total Protein 7.9 gm/dl (6.0-8.3)
[2021-06-24 00:27] LABS: Troponin I High Sensitivity 3207.6 pg/ml (0-20)
[2021-06-24] MEDS ORDERED: ASPIRIN CHEW 324 MG PO STA (00:28)
[2021-06-24] MEDS ORDERED: XOPENEX/ATROVENT 1.25mg/0.5MG NEB COMBO NEB STA (00:40)
[2021-06-24] MEDS ORDERED: IPRATROPIUM BROMIDE NEB SOLN 0.02% 2.5 ML VIAL INH STA (00:47)
[2021-06-24] MEDS ORDERED: LEVALBUTEROL 1.25MG/0.5ML NEB INH STA (00:48)
[2021-06-24 01:15] LABS: Appearance Urine Clear (Clear); Bacteria Urine Automated Negative (Negative); Bilirubin Urine Negative (Negative); Blood Urine Negative (Negative); Color Urine Yellow; Glucose Urine UA Negative (Negative); Ketones Urine Negative (Negative); Leukocyte Esterase Urine Negative (Negative); Nitrite Urine Negative (Negative); Protein Urine 1+ (Negative); RBC Urine Automated 0-4 /hpf (0-4); Urobilinogen Urine Negative (Negative); WBC Urine Automated 0 /hpf (0-5)
[2021-06-24] MEDS ORDERED: ALBUMIN 25% 12.5 GM/50 ML VIAL IV ONE (01:32)
--- NOTE | 2021-06-24 01:32 | History & Physical Report ---
Date of Service June 24, 2021 Assessment & Plan (1) Hypoxia: Plan: Multifactorial : Chronic cough symptoms rule out aspiration Chronic pulmonary congestion, chronic diastolic heart failure Patient denies acute symptoms of fluid overload. Troponin elevation in the setting of kidney dysfunction and elevated blood pressure hx CAD status post PTCA hypertension, stable hyperlipidemia, statin intolerance Parkinsonism, ambulatory dysfunction Hyperglycemia rule out DM PCU Supplemental O2 neb treatment now Aspiration precautions, swallow eval Follow troponin, TTE if with progression Cardiology consult in a.m. Re: Troponin elevation, history CAD N.p.o. until patient seen by cardiology in anticipation of procedure Hold further diuretic Rx until patient seen by cardiology Baseline UA, recheck renal function Hold losartan until repeat renal function obtained. Renal ultrasound and Nephrology consultation if with worsening kidney dysfunction Check hemoglobin A1c PT OT eval once medically stable DVT prophylaxis. Heparin subcu DNR Patient's requesting updates from providers. Danyelle Marcia Sigala, contact #[phone]. Text document was generated using [employer] voice recognition software. It may contain grammatical or spelling errors. Kindly contact undersigned for clarification of any documentation item in question. History of Present Illness Chief Complaint: Fall Primary Care Provider: Dr. Everardo Ervin History obtained from patient, family, and records. Patient is a fair historian. Medical history significant for chronic diastolic heart failure (EF 55 to 60%, TTE 2019), CAD status post PTCA, hypertension, hyperlipidemia, CRI (baseline creatinine 1.7), Parkinsonism Last confinement June 2019 for decompensated heart failure. Patient seen at [facility] 3 weeks ago for follow-up visit. Terazosin discontinued due to positional dizziness. Patient was trying to get out of a chair at home subsequently sliding to the ground and unable to get up. Patient denies head trauma, LOC, chest pain, SOB. Usual dry cough symptoms as per patient. Patient admits to occasional coughing with water/meal intake. Usual weakness as per . Patient noted to be hypoxemic, 89 on room air upon EMS arrival. Patient brought to the ER for evaluation. Patient given Lasix for possible CHF. Medical History as above Surgical History : None Family History : Osteoarthritis Personal/Social history : Non-smoker, occasional EtOH intake, retired postman Allergies Allergy/AdvReac Type Severity Reaction Status Date / Time No Known Allergies Allergy Verified 06/23/21 23:08 Home Medications Medication Instructions Recorded Confirmed Type aspirin 81 mg tablet,delayed 162 mg PO DAILY 07/16/19 06/23/21 History release atenolol 50 mg tablet 50 mg PO DAILY 07/16/19 06/23/21 History losartan 100 mg tablet 100 mg PO DAILY 07/16/19 06/23/21 History torsemide 10 mg tablet 20 mg PO QAM #60 tab 07/20/19 06/23/21 Rx isosorbide mononitrate 60 mg 60 mg PO DAILY 06/23/21 06/23/21 History tablet,extended release 24 hr Past Med/Surg History Medical History (Updated 06/24/21 @ 10:04 by Joni Dover DO) Coronary artery disease 09/1999 - PTCA to OM2 Hypertension Psoriasis Statin intolerance Family History Father Kidney failure Social History Smoking Status: Never smoker Tobacco Type: Smokeless Tobacco (Dip or Chew) Do You Dip or Chew Tobacco: Yes; Tobacco Cessation Education Requested by Patient: No Hx Alcohol Use: No Hx Substance Use: No Preferred Language: Wolof Communication Ability: Effective Casework Specialist Required: No Beliefs That Will Affect Care: None marital status: Current Living Situation: Spouse How many Children do You have: 4 Other Information That Helps Us Care for You: No Feels Safe at Home: Yes Safety Concerns: Feels Safe At This Time Assistive Devices: Cane and Walker Review of Systems Review of Systems: As per HPI, all other systems reviewed and negative Physical Exam Physical Exam: GENERAL: Comfortable, obese, flat affect, somewhat apathetic, no respiratory distress SKIN: Normal color, warm HEENT: Partial alopecia, ppalpebral conjunctivae, no ptosis, dry buccal mucosa, nasal cannula in place NECK : Supple, short neck, no tenderness CHEST : Decreased breath sounds, no tenderness HEART : RRR, no obvious murmurs ABDOMEN: Some distention, nontender EXTREMITIES : Bilateral LE swelling (chronic as per patient), no LE tenderness, no other conspicuous deformities noted NEUROLOGIC : Coherent, no facial asymmetry, resting RUE tremors, gait and stance not assessed Results & Data Results & Data ([facility]) Vital Signs (Past 12 Hours) Vital Signs Temp Pulse Pulse Resp BP BP Pulse Ox 06/23/21 23:51 36.6 C 97 H 20 135/64 97 06/23/21 22:43 100 H 23 157/79 H 89 L Laboratory Results Laboratory Results WBC 11.46 K/uL (4.8-10.8) H 06/23/21 23:38 RBC 5.54 M/uL (4.7-6.1) 06/23/21 23:38 Hgb 15.6 g/dL (14.0-18.0) 06/23/21 23:38 Hct 46.9 % (42-52) 06/23/21 23:38 MCV 84.7 fL (80-100) 06/23/21 23:38 MCH 28.2 pg (25-34) 06/23/21 23:38 MCHC 33.3 g/dL (32-36) 06/23/21 23:38 RDW Std Deviation 47.6 fL (36.4-46.3) H 06/23/21 23:38 RDW Coeff of Sabrina 15.5 % (11.5-14.5) H 06/23/21 23:38 Plt Count 181 K/uL (130-400) 06/23/21 23:38 MPV 11.6 fL (7.4-10.4) H 06/23/21 23:38 Immature Gran % (Auto) 0.4 % 06/23/21 23:38 Neut % (Auto) 91.0 % 06/23/21 23:38 Lymph % (Auto) 4.1 % 06/23/21 23:38 [place] % (Auto) 4.1 % 06/23/21 23:38 Eos % (Auto) 0.3 % 06/23/21 23:38 Baso % (Auto) 0.1 % 06/23/21 23:38 Neut # (Auto) 10.43 K/uL (1.4-6.5) H 06/23/21 23:38 Lymph # (Auto) 0.47 K/uL (1.2-3.4) L 06/23/21 23:38 [place] # (Auto) 0.47 K/uL (0.11-0.59) 06/23/21 23:38 Eos # (Auto) 0.03 K/uL (0-0.5) 06/23/21 23:38 Baso # (Auto) 0.01 K/uL (0-0.2) 06/23/21 23:38 Immature Gran # (Auto) 0.05 K/uL (0.00-0.02) H 06/23/21 23:38 PT 10.6 Seconds (9.0-12.0) 06/23/21 23:38 INR 1.0 (0.9-1.1) 06/23/21 23:38 APTT 26.8 Seconds (21.0-31.0) 06/23/21 23:38 PTT Ratio 1.0 06/23/21 23:38 VBG pH 7.39 (7.36-7.41) 06/23/21 23:45 VBG pCO2 55 mmHg (38-50) H 06/23/21 23:45 VBG pO2 25 mmHg 06/23/21 23:45 VBG HCO3 32 mmol/L 06/23/21 23:45 VBG O2 Saturation < 60.0 % 06/23/21 23:45 VBG Base Excess 5.3 mEq/L 06/23/21 23:45 Sodium 139 mmol/L (136-145) 06/23/21 23:38 Potassium 4.7 mmol/L (3.5-5.1) 06/23/21 23:38 Chloride 100 mmol/L (98-107) 06/23/21 23:38 Carbon Dioxide 31 mmol/L (21-32) 06/23/21 23:38 Anion Gap 8 (3-11) 06/23/21 23:38 BUN 31 mg/dl (6-23) H 06/23/21 23:38 Creatinine 1.91 mg/dl (0.6-1.4) H 06/23/21 23:38 Est Cr Clr Drug Dosing 43.9 ml/min 06/23/21 23:38 Est GFR ( Amer) 38.6 ml/min 06/23/21 23:38 Est GFR (Non-Af Amer) 33.3 ml/min 06/23/21 23:38 BUN/Creatinine Ratio 16.2 (10-20) 06/23/21 23:38 Glucose 126 mg/dl (70-99(Fasting)) H 06/23/21 23:38 Calcium 9.3 mg/dl (8.5-10.1) 06/23/21 23:38 Total Bilirubin 0.5 mg/dl (0.2-1.0) 06/23/21 23:38 AST 36 U/L (13-39) 06/23/21 23: ALT 25 U/L (7-52) 06/23/21 23:38 Alkaline Phosphatase 95 U/L (34-104) 06/23/21 23:38 Troponin I High Sens 3207.6 pg/ml (0-20) H* 06/23/21 23: B-Natriuretic Peptide 722 pg/ml (0-100) H 06/23/21 23:38 Total Protein 7.9 gm/dl (6.0-8.3) 06/23/21: Albumin 4.0 gm/dl (3.4-5.0) 06/23/21 23: Globulin 3.9 gm/dl (2.5-4.0) 06/23/21 23: Albumin/Globulin Ratio 1.0 (0.9-2) 06/23/21 23: Urine Color Yellow 06/23/21 23:30 Urine Appearance Clear (Clear) 06/23/21 23: Urine pH 7.0 (4.5-7.5) 06/23/21 23:30 Ur Specific [place] 1.020 (1.000-1.030) 06/23/21 23:30 Urine Protein 1+ (Negative) H 06/23/21 23:30 Urine Glucose (UA) Negative (Negative) 06/23/21 23:30 Urine Ketones Negative (Negative) 06/23/21 23:30 Urine Blood Negative (Negative) 06/23/21 23:30 Urine Nitrite Negative (Negative) 06/23/21 23:30 Urine Bilirubin Negative (Negative) 06/23/21 23:30 Urine Urobilinogen Negative (Negative) 06/23/21 23:30 Ur Leukocyte Esterase Negative (Negative) 06/23/21 23:30 Urine WBC (Auto) 0 /hpf (0-5) 06/23/21 23:30 Urine RBC (Auto) 0-4 /hpf (0-4) 06/23/21 23:30 U Hyaline Cast (Auto) 1-5 /lpf (0-5) 06/23/21 23:30 U Epithel Cells (Auto) 5-10 /lpf (0-5) H 06/23/21 23:30 Urine Bacteria (Auto) Negative (Negative) 06/23/21 23:30 SARS-CoV-2, RNA, NAAT NEGATIVE (NEGATIVE) 06/24/21 00:45 Diagnostic Findings Chest x-ray as per my interpretation cardiomegaly, minimal congestion EKG as per my interpretation : Rate 100, NSR, LAD, LAFB, RBBB, no ischemia
[2021-06-24 02:21] LABS: Magnesium 2.3 mg/dl (1.7-2.4)
[2021-06-24 02:31] LABS: Troponin I High Sensitivity 4574.8 pg/ml (0-20)
[2021-06-24] MEDS ORDERED: TERAZOSIN HCL 1 MG CAP PO ONE (02:41)
[2021-06-24] MEDS ORDERED: ACETAMINOPHEN 325 MG TAB PO PRN (03:08)
[2021-06-24] MEDS ORDERED: traMADol HCL 50 MG TABLET PO PRN (03:08)
[2021-06-24] MEDS ORDERED: PROMETHAZINE HCL 12.5 MG in SODIUM CHLORIDE 0.9% 50 ML IV PRN (03:08)
[2021-06-24] MEDS ORDERED: HEPARIN SOD 5,000 UNIT/0.5 ML VIAL SQ SCH (06:00)
[2021-06-24 06:55] LABS: Troponin I High Sensitivity 6482.1 pg/ml (0-20)
--- NOTE | 2021-06-24 07:06 | CT Scan Report ---
CT head/brain wo con CLINICAL HISTORY: faal, weakness Technique: Contiguous axial CT images of the head were acquired from the base of the skull to the marichuy elisa without intravenous contrast administration. Images were viewed in brain, subdural and [facility]. Automated dose lowering techniques and/or adjustment according to patient size were utilized for this exam. Comparison: Comparison is made to CT head 07/02/2008 Findings: Areas of decreased attenuation are present in the periventricular and subcortical white matter bilate rally consistent with small vessel ischemic disease. Generalized cerebral atrophy with commensurate e nlargement of the ventricles, sulci, and cisterns is also present. There is no acute intracranial hem orrhage or evidence of acute territorial infarction. No shift of the midline structures, mass effect, or extra-axial abnormalities are shown. Atherosclerotic calcifications are present in the intracran ial segments of the internal carotid arteries. Imaged portions of the paranasal sinuses and mastoid air cells are clear. The orbits appear normal. There are no acute fractures of the calvaria or scalp swelling. Impression: No acute intracranial hemorrhage, no evidence of acute territorial infarction or other acute intracra nial disease process. ACT 112: Negative or not required by law. Electronically signed by: Martin Sommer M.D. 06/24/2021 7:05 AM
[2021-06-24 07:10] LABS: BUN Creatinine Ratio 17.5 (10-20); Calcium 8.7 mg/dl (8.5-10.1); Chol HDL Ratio 4.7 (0-5); Est GFR (African American) 39.1 ml/min; Est GFR (Non-African American) 33.7 ml/min
[2021-06-24 08:07] LABS: Estimated Average Glucose 151 mg/dl; Hemoglobin A1C 6.9 % (4.5-5.6)
--- NOTE | 2021-06-24 08:09 | XRay Report ---
SINGLE VIEW CHEST CLINICAL HISTORY: Dyspnea. FINDINGS: An AP, portable, upright chest radiograph is compared to study dated 07/16/2019 and correlat ed with chest CT dated 07/02/2008. The examination is degraded by portable technique and apical lordoti c positioning. The heart is markedly enlarged. There is prominence of the pulmonary vasculature. Wireless Consultant orin interstitial thickening is similar to previous. Scarring/atelectasis is seen at the lung bases. N o airspace consolidation or large pleural effusion is identified. No pneumothorax is seen. The skelet al structures are osteopenic. The bony thorax is grossly intact. IMPRESSION: Marked cardiomegaly with prominence of the pulmonary vasculature. Correlate clinically fo r evidence of mild congestive failure. ACT 112: Negative or not required by law. Electronically signed by: Gomez Gómez M.D. 06/24/2021 8:08 AM
--- NOTE | 2021-06-24 08:53 | Ultrasound Report ---
US venous doppler LE BI CLINICAL HISTORY: leg swelling TECHNIQUE: Bilateral lower extremity real-time compression venous ultrasound with Color Doppler imagi ng. Utilizing real-time ultrasonic imaging multiple real time high-resolution ultrasonic images with compression and noncompression maneuvers of the deep venous system in addition to color doppler imagi ng were performed from the common femoral vein through the proximal calf veins. COMPARISON: None available at the time of this dictation. FINDINGS: Currently there is normal compressibility of the deep venous system from the common femoral vein thro ugh the proximal calf veins. No current evidence of acute thrombosis is identified. Impression: No evidence of deep venous thrombus. ACT 112: Negative or not required by law. Electronically signed by: Martin Sommer M.D. 06/24/2021 8:52 AM
[2021-06-24] MEDS ORDERED: ATENOLOL 50 MG TABLET PO SCH (09:00)
[2021-06-24 09:11] LABS: Basophils # (auto) 0.01 K/uL (0-0.2); Basophils % (auto) 0.1 %; Eosinophils # (auto) 0.02 K/uL (0-0.5); Eosinophils % (auto) 0.2 %; Hematocrit (blood only) 43.8 % (42-52); Hemoglobin 14.2 g/dL (14.0-18.0); Immature Granulocytes # (auto) 0.02 K/uL (0.00-0.02); Immature Granulocytes % (auto) 0.2 %; Lymphocytes # (auto) 0.49 K/uL (1.2-3.4); Lymphocytes % (auto) 5.1 %; Mean Corpuscular Hemoglobin 27.3 pg (25-34); Mean Corpuscular Hgb Conc 32.4 g/dL (32-36); Mean Corpuscular Volume 84.2 fL (80-100); Monocytes # (auto) 0.54 K/uL (0.11-0.59); Monocytes % (auto) 5.6 %; Neutrophils # (auto) 8.59 K/uL (1.4-6.5); Neutrophils % (auto) 88.8 %; Platelet Count 164 K/uL (130-400); RDW Coefficient of Variation 15.6 % (11.5-14.5); RDW Standard Deviation 47.9 fL (36.4-46.3); White Blood Count 9.67 K/uL (4.8-10.8)
[2021-06-24] MEDS ORDERED: Heparin IV Adult Wt-Based Standard WITH Bolus Protocol IV SCH (09:40)
[2021-06-24] MEDS: ASPIRIN 81 MG ECTAB PO SCH (09:53)
[2021-06-24] MEDS: ISOSORBIDE MONO EXTENDED REL 60 MG TABCR PO SCH (09:53)
--- NOTE | 2021-06-24 10:10 | Cardiology Consultation ---
Date of Consultation June 24, 2021 Assessment & Plan (1) Acute respiratory failure with hypoxia: (2) Acute diastolic (congestive) heart failure: (3) Non-ST elevation (NSTEMI) myocardial infarction: (4) Acute on chronic renal failure: 76-year-old patient presenting to the emergency department with weakness and fall from chair. No traumatic injury noted. Troponins trending upward without anginal symptoms, however, echocardiogram demonstrating anterior hypokinesis. Elevated troponin secondary to hypoxia in the setting of acute heart failure with preserved LV function, however, plaque rupture event also must be considered with evidence of anterior wall motion abnormality. He sibley ies a history of a chronic LAD occlusion with anterior wall/LAD territory supplied via collateralization. Recommend addition of intravenous heparin. Continue aspirin. History of statin intolerance. Transition atenolol to metoprolol tartrate 25 mg twice daily. Patient would be high risk for cardiac catheterization due to acute renal insufficiency. Continue conservative medical management at this time. Physical exam with evidence of crackles at the left base. I am concerned regarding possible aspiration or community-acquired pneumonia. A CT of the chest without contrast will be performed for further evaluation due to poor quality of chest x-ray related to body habitus. Serum creatinine near baseline, however, mildly elevated on admission. Creatinine stable overnight after treatment with 1 dose of intravenous furosemide. Overall volume status is difficult to assess due to body habitus. Treat with 40 mg of IV furosemide daily and monitor GFR, electrolytes, daily weight, and fluid balance. History of Present Illness Reason for Consultation: elevated troponin, CHF Requesting Physician: Dr. Hollis Attending Physician: Juancarlos Liriano MD History of Present Illness 76-year-old patient presented to the emergency department after falling out of the chair. Somewhat of a poor historian. Reports weakness over the past 6 months. Attributes weakness to diagnosis of Parkinson's disease. Denies chest discomfort or unusual shortness of breath. Hypoxic on admission. Chest x-ray suggestive of volume overload although imaging was technically limited. High- sensitivity troponin elevated on admission and trending upward. Patient reports cough with scant sputum production. Denies fever, chills, or sick contacts. No urinary symptoms. Appetite has been normal. Denies orthopnea, or PND. No significant weight gain or change in lower extremity edema. Treated with 1 dose of torsemide in the ER with mild diuresis. Complex cardiovascular history listed below. 1.Atherosclerotic coronary disease. Two-vessel atherosclerotic coronary disease - cardiac catheterization in September of 1999 demonstrating a chronic occlusion of the LAD after its first septal and diagonal branch with excellent collateral filling to the distal vessel, 99% stenosis of the OM2, and a 30% smooth taper of the proximal RCA. Patient s/p 10/07/1999 PTCA of the OM2 with BRITTNI III flow in the vessel and ~35% residual stenosis per report. 2. Chronic heart failure with preserved ejection fraction 3. Hypertension. 4. Dyslipidemia with past intolerance to Lipitor, Crestor, and Pravachol Allergies Allergy/AdvReac Type Severity Reaction Status Date / Time No Known Allergies Allergy Verified 06/23/21 23:08 Home Medications Medication Instructions Recorded Confirmed Type aspirin 81 mg tablet,delayed 162 mg PO DAILY 07/16/19 06/23/21 History release atenolol 50 mg tablet 50 mg PO DAILY 07/16/19 06/23/21 History losartan 100 mg tablet 100 mg PO DAILY 07/16/19 06/23/21 History torsemide 10 mg tablet 20 mg PO QAM #60 tab 07/20/19 06/23/21 Rx isosorbide mononitrate 60 mg 60 mg PO DAILY 06/23/21 06/23/21 History tablet,extended release 24 hr Patient History Medical History (Updated 06/24/21 @ 10:04 by Joni Dover DO) Coronary artery disease 09/1999 - PTCA to OM2 Hypertension Psoriasis Statin intolerance Family History Father Kidney failure Social History Smoking Status: Never smoker Tobacco Type: Smokeless Tobacco (Dip or Chew) Do You Dip or Chew Tobacco: Yes; Tobacco Cessation Education Requested by Patient: No Hx Alcohol Use: No Hx Substance Use: No Preferred Language: Telugu Communication Ability: Effective 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 Beliefs That Will Affect Care: None marital status: Current Living Situation: Spouse How many Children do You have: 4 Other Information That Helps Us Care for You: No Feels Safe at Home: Yes Safety Concerns: Feels Safe At This Time Assistive Devices: Cane and Walker Review of Systems Review of Systems: All systems reviewed & are unremarkable except as noted in Subjective Physical Exam Constitutional: well developed, well nourished, + ill appearing and + obese Respiratory: no respiratory distress, no labored breathing and no retractions Auscultation: + rales (Left base and mid lung field); no rhonchi and no wheezes Cardiovascular: Rate/Rhythm: regular rate and regular rhythm Heart Sounds: normal S1 and normal S2; no murmur Vessels: radial pulses present; no JVD (Difficult to assess due to body habitus) and no carotid bruit Extremities: + edema (Mild bilateral pedal and ankle edema) Gastrointestinal (Abdomen): Inspection/Auscultation: + abdomen distended and normal bowel sounds; no abdominal edema Percussion/Palpation: abdomen soft; abdomen nontender, no guarding and abdomen not rigid Neurologic: CN's II-XI intact bilaterally and moves all extremities; no focal motor deficits Results & Data ([facility]) Vital Signs (Past 12 Hours) Vital Signs Temp Pulse Pulse Resp BP BP Pulse Ox 06/24/21 07:48 36.9 C 79 20 126/70 90 06/24/21 07:25 75 06/24/21 05:11 78 06/24/21 02:45 37 C 83 20 127/72 93 06/24/21 01:58 80 94 06/24/21 01:50 85 22 172/85 H 95 06/23/21 23:51 36.6 C 97 H 20 135/64 97 06/23/21 22:43 100 H 23 157/79 H 89 L
--- NOTE | 2021-06-24 10:20 | Electrocardiogram Report ---
Test Reason : Blood Pressure : / mmHG Vent. Rate : 100 BPM Atrial Rate : 100 BPM P-R Int : 166 ms QRS Dur : 172 ms QT Int : 390 ms P-R-T Axes : 012 266 057 degrees QTc Int : 503 ms Normal sinus rhythm Right bundle branch block Abnormal ECG When compared with ECG of 18-JUL-2019 06:33, Right bundle branch block has replaced Incomplete right bundle branch block Confirmed by Loco Bhardwaj ([id number]) on 06/24/2021 10:19:36 AM Referred By: REFERRED SELF Confirmed By:Loco Bhardwaj
[2021-06-24] MEDS: HEPARIN SODIUM/DEXTROSE 25,000 UNITS/500 ML BAG IV SCH (10:40)
[2021-06-24] MEDS: FUROSEMIDE 40 MG/4 ML VIAL IV SCH (10:42)
[2021-06-24] MEDS ORDERED: HEPARIN SOD (PORCINE) 1000 UNIT/ML IV ONE (10:45)
--- NOTE | 2021-06-24 13:01 | CT Scan Report ---
CT chest diagnostic wo con CLINICAL HISTORY: hypoxia, LLL rales. Evaluate for pneumonia COMPARISON STUDY: Portable chest from 06/23/[address] of the chest from 07/02/2008 CT DOSE: 641.88 mGycm TECHNIQUE: Standard CT of the Chest was performed without IV contrast. A dose lowering technique was utilized adhering to the principles of ALARA. FINDINGS: Airway: The airway is clear. No endobronchial lesion is identified. Lungs: There is minimal left basilar atelectasis. The lungs are otherwise clear of acute alveolar opa cities, air bronchograms or pulmonary nodules. There is no evidence for vascular congestion. Pleura: There is no evidence for pleural effusion. There is no evidence for pneumothorax. Mediastinum: There is no evidence for pathologic adenopathy on these limited noncontrast images. The heart is again enlarged. There is extensive coronary artery calcification. The thoracic aorta is with in normal limits. Mild atherosclerotic calcification is present. There is very mild pericardial thick ening/fluid Upper abdomen: The adrenal glands are normal bilaterally. There is a small hiatal hernia. There is al so evidence for a ventral anterior abdominal wall hernia which is not well seen on this study due to the size of the patient's body habitus. Osseous structures: There is no acute osseous pathology. IMPRESSION: 1. Minimal left basilar atelectasis. 2. There is no acute chest disease on these noncontrast images. 3. Cardiomegaly with extensive coronary artery calcification. 4. Very mild pericardial thickening/fluid. 5. A small hiatal hernia. 6. Evidence for ventral abdominal wall hernia. ACT 112: Negative or not required by law. Electronically signed by: Jacobo Snyder M.D. 06/24/2021 12:59 PM
[2021-06-24 13:06] LABS: Appearance Urine Clear (Clear); Bilirubin Urine Negative (Negative); Blood Urine Negative (Negative); Color Urine Yellow; Glucose Urine UA Negative (Negative); Ketones Urine Negative (Negative); Leukocyte Esterase Urine Negative (Negative); Nitrite Urine Negative (Negative); Protein Urine Negative (Negative); Specific Gravity Urine 1.014 (1.000-1.030); Urobilinogen Urine Negative (Negative)
--- NOTE | 2021-06-24 16:39 | Hospitalist Progress Note ---
Date of Service June 24, 2021 Assessment & Plan (1) Hypoxia: Plan: Multifactorial : Chronic cough symptoms rule out aspiration, speech eval Supplemental O2 neb treatment now Aspiration precautions, swallow eval Acute diastolic HF Troponin elevation in the setting of kidney dysfunction and elevated blood pressure No angina hx CAD status post PTCA Cardiology consult Re: Troponin elevation, history CAD Echo obtained -EF 50 to 55%. Hypokinesis of the mid and apical anterior wall. Aortic valve sclerosis mild, without significant aortic valvular stenosis. There is mild mitral regurg. Grade 1 diastolic dysfunction. Pt started on IV heparin by cardiology Cont. ASA History of statin intolerance. Transition atenolol to metoprolol tartrate 25 mg twice daily. Patient would be high risk for cardiac catheterization due to acute renal insufficiency. Continue conservative medical management at this time. lasix [address] chest obtained to r/o pna IMPRESSION: 1. Minimal left basilar atelectasis. 2. There is no acute chest disease on these noncontrast images. 3. Cardiomegaly with extensive coronary artery calcification. 4. Very mild pericardial thickening/fluid. 5. A small hiatal hernia. 6. Evidence for ventral abdominal wall hernia. Hypertension, stable Hyperlipidemia, statin intolerance Parkinsonism, ambulatory dysfunction Hyperglycemia rule out DM hemoglobin A1c 6.9% NGHIA Baseline UA, recheck renal function Hold losartan until repeat renal function obtained. Renal ultrasound and Nephrology consultation if with worsening kidney dysfunction PT OT eval once medically stable DVT prophylaxis. now on IV Heparin DNR Patient's , Ms. Marcia Sigala, contact #[phone]. Admission and Anticipated Discharge Date Admission Date: June 24, 2021 Subjective Patient seen in a follow-up of hypoxia, CHF, NSTEMI, NGHIA Patient is sitting up in a chair, in no acute distress On a supplemental oxygen, 2 L/min Was started on IV heparin by cardiology Currently denies any chest pain, increased shortness of breath, abdominal pain nausea vomiting. Says that overall he feels better than yesterday. Patient's at the bedside, updated. Review of Systems Review of Systems: All systems reviewed & are unremarkable except as noted in Subjective Physical Exam Physical Exam: GENERAL: obese M, flat affect, somewhat apathetic, no respiratory distress HEENT: NC/AT, partial alopecia, EOMI, PERRL, nasal cannula in place 2L NECK : Supple, short neck, no tenderness CHEST : CTAB, no wheezing HEART : RRR, no obvious murmurs ABDOMEN: Some distention, nontender EXTREMITIES : mild bilateral LE swelling (chronic as per patient), no LE tenderness NEUROLOGIC : awake and alert, answering questions appropriately, no facial asymmetry, resting RUE tremors, gait and stance not assessed SKIN: Normal color, warm Results & Data Results & Data ([facility]) Vital Signs (Past 12 Hours) Vital Signs Temp Pulse Pulse Resp BP Pulse Ox 06/24/21 15:57 37.1 C 89 20 128/74 92 06/24/21 11:48 36.6 C 82 20 147/70 H 91 06/24/21 07:48 36.9 C 79 20 126/70 90 06/24/21 07:25 75 06/24/21 05:11 78 Laboratory Results 06/24/21 06/24/21 06/24/21 Range/Units Unknown 05:30 05:30 WBC 9.67 (4.8-10.8) K/uL RBC 5.20 (4.7-6.1) M/uL Hgb 14.2 (14.0-18.0) g/dL Hct 43.8 (42-52) % MCV 84.2 (80-100) fL MCH 27.3 (25-34) pg MCHC 32.4 (32-36) g/dL RDW Std Deviation 47.9 H (36.4-46.3) fL RDW Coeff of Sabrina 15.6 H (11.5-14.5) % Plt Count 164 (130-400) K/uL MPV 12.0 H (7.4-10.4) fL Immature Gran % (Auto) 0.2 % Neut % (Auto) 88.8 % Lymph % (Auto) 5.1 % [place] % (Auto) 5.6 % Eos % (Auto) 0.2 % Baso % (Auto) 0.1 % Neut # (Auto) 8.59 H (1.4-6.5) K/uL Lymph # (Auto) 0.49 L (1.2-3.4) K/uL [place] # (Auto) 0.54 (0.11-0.59) K/uL Eos # (Auto) 0.02 (0-0.5) K/uL Baso # (Auto) 0.01 (0-0.2) K/uL Immature Gran # (Auto) 0.02 (0.00-0.02) K/uL PT (9.0-12.0) Seconds INR (0.9-1.1) APTT (21.0-31.0) Seconds PTT Ratio VBG pH (7.36-7.41) VBG pCO2 (38-50) mmHg VBG pO2 mmHg VBG HCO3 mmol/L VBG O2 Saturation % VBG Base Excess mEq/L Sodium 138 (136-145) mmol/L Potassium 4.0 (3.5-5.1) mmol/L Chloride 102 (98-107) mmol/L Carbon Dioxide 28 (21-32) mmol/L Anion Gap 8 (3-11) BUN 33 H (6-23) mg/dl Creatinine 1.89 H (0.6-1.4) mg/dl Est Cr Clr Drug Dosing 45.0 ml/min Est GFR ( Amer) 39.1 ml/min Est GFR (Non-Af Amer) 33.7 ml/min BUN/Creatinine Ratio 17.5 (10-20) Glucose 157 H (70-99(Fasting)) mg/dl Estimat Average Glucose mg/dl Hemoglobin A1c (4.5-5.6) % Calcium 8.7 (8.5-10.1) mg/dl Magnesium (1.7-2.4) mg/dl Total Bilirubin (0.2-1.0) mg/dl AST (13-39) U/L ALT (7-52) U/L Alkaline Phosphatase (34-104) U/L Total Creatine Kinase 278 H (30-223) U/L Troponin I High Sens 6482.1 H* D (0-20) pg/ml B-Natriuretic Peptide (0-100) pg/ml Total Protein (6.0-8.3) gm/dl Albumin (3.4-5.0) gm/dl Globulin (2.5-4.0) gm/dl Albumin/Globulin Ratio (0.9-2) Triglycerides 105 (0-150) mg/dl Cholesterol 154 (0-200) mg/dl LDL Cholesterol, Calc 100 mg/dl VLDL Cholesterol, Calc 21 (0-30) mg/dl HDL Cholesterol 33 mg/dl Cholesterol/HDL Ratio 4.7 (0-5) TSH (0.300-4.500) uIu/ml Urine Color Yellow Urine Appearance Clear (Clear) Urine pH 5.0 (4.5-7.5) Ur Specific [place] 1.014 (1.000-1.030) Urine Protein Negative (Negative) Urine Glucose (UA) Negative (Negative) Urine Ketones Negative (Negative) Urine Blood Negative (Negative) Urine Nitrite Negative (Negative) Urine Bilirubin Negative (Negative) Urine Urobilinogen Negative (Negative) Ur Leukocyte Esterase Negative (Negative) Urine WBC (Auto) (0-5) /hpf Urine RBC (Auto) (0-4) /hpf U Hyaline Cast (Auto) (0-5) /lpf U Epithel Cells (Auto) (0-5) /lpf Urine Bacteria (Auto) (Negative) SARS-CoV-2, RNA, NAAT (NEGATIVE) 06/24/21 06/24/21 06/23/21 Range/Units 01:33 00:45 23:45 WBC (4.8-10.8) K/uL RBC (4.7-6.1) M/uL Hgb (14.0-18.0) g/dL Hct (42-52) % MCV (80-100) fL MCH (25-34) pg MCHC (32-36) g/dL RDW Std Deviation (36.4-46.3) fL RDW Coeff of Sabrina (11.5-14.5) % Plt Count (130-400) K/uL MPV (7.4-10.4) fL Immature Gran % (Auto) % Neut % (Auto) % Lymph % (Auto) % [place] % (Auto) % Eos % (Auto) % Baso % (Auto) % Neut # (Auto) (1.4-6.5) K/uL Lymph # (Auto) (1.2-3.4) K/uL [place] # (Auto) (0.11-0.59) K/uL Eos # (Auto) (0-0.5) K/uL Baso # (Auto) (0-0.2) K/uL Immature Gran # (Auto) (0.00-0.02) K/uL PT (9.0-12.0) Seconds INR (0.9-1.1) APTT (21.0-31.0) Seconds PTT Ratio VBG pH (7.36-7.41) VBG pCO2 (38-50) mmHg VBG pO2 mmHg VBG HCO3 mmol/L VBG O2 Saturation % VBG Base Excess mEq/L Sodium (136-145) mmol/L Potassium (3.5-5.1) mmol/L Chloride (98-107) mmol/L Carbon Dioxide (21-32) mmol/L Anion Gap (3-11) BUN (6-23) mg/dl Creatinine (0.6-1.4) mg/dl Est Cr Clr Drug Dosing ml/min Est GFR ( Amer) ml/min Est GFR (Non-Af Amer) ml/min BUN/Creatinine Ratio (10-20) Glucose (70-99(Fasting)) mg/dl Estimat Average Glucose mg/dl Hemoglobin A1c (4.5-5.6) % Calcium (8.5-10.1) mg/dl Magnesium 2.3 (1.7-2.4) mg/dl Total Bilirubin (0.2-1.0) mg/dl AST (13-39) U/L ALT (7-52) U/L Alkaline Phosphatase (34-104) U/L Total Creatine Kinase 252 H (30-223) U/L Troponin I High Sens 4574.8 H* D (0-20) pg/ml B-Natriuretic Peptide (0-100) pg/ml Total Protein (6.0-8.3) gm/dl Albumin (3.4-5.0) gm/dl Globulin (2.5-4.0) gm/dl Albumin/Globulin Ratio (0.9-2) Triglycerides (0-150) mg/dl Cholesterol (0-200) mg/dl LDL Cholesterol, Calc mg/dl VLDL Cholesterol, Calc (0-30) mg/dl HDL Cholesterol mg/dl Cholesterol/HDL Ratio (0-5) TSH 0.586 (0.300-4.500) uIu/ml Urine Color Urine Appearance (Clear) Urine pH (4.5-7.5) Ur Specific [place] (1.000-1.030) Urine Protein (Negative) Urine Glucose (UA) (Negative) Urine Ketones (Negative) Urine Blood (Negative) Urine Nitrite (Negative) Urine Bilirubin (Negative) Urine Urobilinogen (Negative) Ur Leukocyte Esterase (Negative) Urine WBC (Auto) (0-5) /hpf Urine RBC (Auto) (0-4) /hpf U Hyaline Cast (Auto) (0-5) /lpf U Epithel Cells (Auto) (0-5) /lpf Urine Bacteria (Auto) (Negative) SARS-CoV-2, RNA, NAAT NEGATIVE (NEGATIVE) 06/23/21 06/23/21 06/23/21 Range/Units 23:45 23:38 23:38 WBC (4.8-10.8) K/uL RBC (4.7-6.1) M/uL Hgb (14.0-18.0) g/dL Hct (42-52) % MCV (80-100) fL MCH (25-34) pg MCHC (32-36) g/dL RDW Std Deviation (36.4-46.3) fL RDW Coeff of Sabrina (11.5-14.5) % Plt Count (130-400) K/uL MPV (7.4-10.4) fL Immature Gran % (Auto) % Neut % (Auto) % Lymph % (Auto) % [place] % (Auto) % Eos % (Auto) % Baso % (Auto) % Neut # (Auto) (1.4-6.5) K/uL Lymph # (Auto) (1.2-3.4) K/uL [place] # (Auto) (0.11-0.59) K/uL Eos # (Auto) (0-0.5) K/uL Baso # (Auto) (0-0.2) K/uL Immature Gran # (Auto) (0.00-0.02) K/uL PT 10.6 (9.0-12.0) Seconds INR 1.0 (0.9-1.1) APTT 26.8 (21.0-31.0) Seconds PTT Ratio 1.0 VBG pH 7.39 (7.36-7.41) VBG pCO2 55 H (38-50) mmHg VBG pO2 25 mmHg VBG HCO3 32 mmol/L VBG O2 Saturation < 60.0 % VBG Base Excess 5.3 mEq/L Sodium (136-145) mmol/L Potassium (3.5-5.1) mmol/L Chloride (98-107) mmol/L Carbon Dioxide (21-32) mmol/L Anion Gap (3-11) BUN (6-23) mg/dl Creatinine (0.6-1.4) mg/dl Est Cr Clr Drug Dosing ml/min Est GFR ( Amer) ml/min Est GFR (Non-Af Amer) ml/min BUN/Creatinine Ratio (10-20) Glucose (70-99(Fasting)) mg/dl Estimat Average Glucose mg/dl Hemoglobin A1c (4.5-5.6) % Calcium (8.5-10.1) mg/dl Magnesium (1.7-2.4) mg/dl Total Bilirubin (0.2-1.0) mg/dl AST (13-39) U/L ALT (7-52) U/L Alkaline Phosphatase (34-104) U/L Total Creatine Kinase (30-223) U/L Troponin I High Sens (0-20) pg/ml B-Natriuretic Peptide 722 H (0-100) pg/ml Total Protein (6.0-8.3) gm/dl Albumin (3.4-5.0) gm/dl Globulin (2.5-4.0) gm/dl Albumin/Globulin Ratio (0.9-2) Triglycerides (0-150) mg/dl Cholesterol (0-200) mg/dl LDL Cholesterol, Calc mg/dl VLDL Cholesterol, Calc (0-30) mg/dl HDL Cholesterol mg/dl Cholesterol/HDL Ratio (0-5) TSH (0.300-4.500) uIu/ml Urine Color Urine Appearance (Clear) Urine pH (4.5-7.5) Ur Specific [place] (1.000-1.030) Urine Protein (Negative) Urine Glucose (UA) (Negative) Urine Ketones (Negative) Urine Blood (Negative) Urine Nitrite (Negative) Urine Bilirubin (Negative) Urine Urobilinogen (Negative) Ur Leukocyte Esterase (Negative) Urine WBC (Auto) (0-5) /hpf Urine RBC (Auto) (0-4) /hpf U Hyaline Cast (Auto) (0-5) /lpf U Epithel Cells (Auto) (0-5) /lpf Urine Bacteria (Auto) (Negative) SARS-CoV-2, RNA, NAAT (NEGATIVE) 06/23/21 06/23/21 06/23/21 Range/Units 23:38 23:38 23:30 WBC 11.46 H (4.8-10.8) K/uL RBC 5.54 (4.7-6.1) M/uL Hgb 15.6 (14.0-18.0) g/dL Hct 46.9 (42-52) % MCV 84.7 (80-100) fL MCH 28.2 (25-34) pg MCHC 33.3 (32-36) g/dL RDW Std Deviation 47.6 H (36.4-46.3) fL RDW Coeff of Sabrina 15.5 H (11.5-14.5) % Plt Count 181 (130-400) K/uL MPV 11.6 H (7.4-10.4) fL Immature Gran % (Auto) 0.4 % Neut % (Auto) 91.0 % Lymph % (Auto) 4.1 % [place] % (Auto) 4.1 % Eos % (Auto) 0.3 % Baso % (Auto) 0.1 % Neut # (Auto) 10.43 H (1.4-6.5) K/uL Lymph # (Auto) 0.47 L (1.2-3.4) K/uL [place] # (Auto) 0.47 (0.11-0.59) K/uL Eos # (Auto) 0.03 (0-0.5) K/uL Baso # (Auto) 0.01 (0-0.2) K/uL Immature Gran # (Auto) 0.05 H (0.00-0.02) K/uL PT (9.0-12.0) Seconds INR (0.9-1.1) APTT (21.0-31.0) Seconds PTT Ratio VBG pH (7.36-7.41) VBG pCO2 (38-50) mmHg VBG pO2 mmHg VBG HCO3 mmol/L VBG O2 Saturation % VBG Base Excess mEq/L Sodium 139 (136-145) mmol/L Potassium 4.7 (3.5-5.1) mmol/L Chloride 100 (98-107) mmol/L Carbon Dioxide 31 (21-32) mmol/L Anion Gap 8 (3-11) BUN 31 H (6-23) mg/dl Creatinine 1.91 H (0.6-1.4) mg/dl Est Cr Clr Drug Dosing 43.9 ml/min Est GFR ( Amer) 38.6 ml/min Est GFR (Non-Af Amer) 33.3 ml/min BUN/Creatinine Ratio 16.2 (10-20) Glucose 126 H (70-99(Fasting)) mg/dl Estimat Average Glucose mg/dl Hemoglobin A1c (4.5-5.6) % Calcium 9.3 (8.5-10.1) mg/dl Magnesium (1.7-2.4) mg/dl Total Bilirubin 0.5 (0.2-1.0) mg/dl AST 36 (13-39) U/L ALT 25 (7-52) U/L Alkaline Phosphatase 95 (34-104) U/L Total Creatine Kinase (30-223) U/L Troponin I High Sens 3207.6 H* (0-20) pg/ml B-Natriuretic Peptide (0-100) pg/ml Total Protein 7.9 (6.0-8.3) gm/dl Albumin 4.0 (3.4-5.0) gm/dl Globulin 3.9 (2.5-4.0) gm/dl Albumin/Globulin Ratio 1.0 (0.9-2) Triglycerides (0-150) mg/dl Cholesterol (0-200) mg/dl LDL Cholesterol, Calc mg/dl VLDL Cholesterol, Calc (0-30) mg/dl HDL Cholesterol mg/dl Cholesterol/HDL Ratio (0-5) TSH (0.300-4.500) uIu/ml Urine Color Yellow Urine Appearance Clear (Clear) Urine pH 7.0 (4.5-7.5) Ur Specific [place] 1.020 (1.000-1.030) Urine Protein 1+ H (Negative) Urine Glucose (UA) Negative (Negative) Urine Ketones Negative (Negative) Urine Blood Negative (Negative) Urine Nitrite Negative (Negative) Urine Bilirubin Negative (Negative) Urine Urobilinogen Negative (Negative) Ur Leukocyte Esterase Negative (Negative) Urine WBC (Auto) 0 (0-5) /hpf Urine RBC (Auto) 0-4 (0-4) /hpf U Hyaline Cast (Auto) 1-5 (0-5) /lpf U Epithel Cells (Auto) 5-10 H (0-5) /lpf Urine Bacteria (Auto) Negative (Negative) SARS-CoV-2, RNA, NAAT (NEGATIVE) 06/23/21 Range/Units 01:33 WBC (4.8-10.8) K/uL RBC (4.7-6.1) M/uL Hgb (14.0-18.0) g/dL Hct (42-52) % MCV (80-100) fL MCH (25-34) pg MCHC (32-36) g/dL RDW Std Deviation (36.4-46.3) fL RDW Coeff of Sabrina (11.5-14.5) % Plt Count (130-400) K/uL MPV (7.4-10.4) fL Immature Gran % (Auto) % Neut % (Auto) % Lymph % (Auto) % [place] % (Auto) % Eos % (Auto) % Baso % (Auto) % Neut # (Auto) (1.4-6.5) K/uL Lymph # (Auto) (1.2-3.4) K/uL [place] # (Auto) (0.11-0.59) K/uL Eos # (Auto) (0-0.5) K/uL Baso # (Auto) (0-0.2) K/uL Immature Gran # (Auto) (0.00-0.02) K/uL PT (9.0-12.0) Seconds INR (0.9-1.1) APTT (21.0-31.0) Seconds PTT Ratio VBG pH (7.36-7.41) VBG pCO2 (38-50) mmHg VBG pO2 mmHg VBG HCO3 mmol/L VBG O2 Saturation % VBG Base Excess mEq/L Sodium (136-145) mmol/L Potassium (3.5-5.1) mmol/L Chloride (98-107) mmol/L Carbon Dioxide (21-32) mmol/L Anion Gap (3-11) BUN (6-23) mg/dl Creatinine (0.6-1.4) mg/dl Est Cr Clr Drug Dosing ml/min Est GFR ( Amer) ml/min Est GFR (Non-Af Amer) ml/min BUN/Creatinine Ratio (10-20) Glucose (70-99(Fasting)) mg/dl Estimat Average Glucose 151 mg/dl Hemoglobin A1c 6.9 H (4.5-5.6) % Calcium (8.5-10.1) mg/dl Magnesium (1.7-2.4) mg/dl Total Bilirubin (0.2-1.0) mg/dl AST (13-39) U/L ALT (7-52) U/L Alkaline Phosphatase (34-104) U/L Total Creatine Kinase (30-223) U/L Troponin I High Sens (0-20) pg/ml B-Natriuretic Peptide (0-100) pg/ml Total Protein (6.0-8.3) gm/dl Albumin (3.4-5.0) gm/dl Globulin (2.5-4.0) gm/dl Albumin/Globulin Ratio (0.9-2) Triglycerides (0-150) mg/dl Cholesterol (0-200) mg/dl LDL Cholesterol, Calc mg/dl VLDL Cholesterol, Calc (0-30) mg/dl HDL Cholesterol mg/dl Cholesterol/HDL Ratio (0-5) TSH (0.300-4.500) uIu/ml Urine Color Urine Appearance (Clear) Urine pH (4.5-7.5) Ur Specific [place] (1.000-1.030) Urine Protein (Negative) Urine Glucose (UA) (Negative) Urine Ketones (Negative) Urine Blood (Negative) Urine Nitrite (Negative) Urine Bilirubin (Negative) Urine Urobilinogen (Negative) Ur Leukocyte Esterase (Negative) Urine WBC (Auto) (0-5) /hpf Urine RBC (Auto) (0-4) /hpf U Hyaline Cast (Auto) (0-5) /lpf U Epithel Cells (Auto) (0-5) /lpf Urine Bacteria (Auto) (Negative) SARS-CoV-2, RNA, NAAT (NEGATIVE) Medications Administered Current Inpatient Medications Acetaminophen (Acetaminophen 325 Mg Tab) 650 mg PO Q4H PRN PRN Reason: Pain or Fever Stop: 07/24/21 03:07 Aspirin (Aspirin 81 Mg Ectab) 162 mg PO DAILY [facility] Stop: 07/24/21 08:59 Last Admin: 06/24/21 09:53 Dose: 162 mg Documented by: Furosemide (Furosemide 40 Mg/4 Ml Vial) 40 mg IV DAILY [facility] Stop: 07/24/21 10:14 Last Admin: 06/24/21 10:42 Dose: 40 mg Documented by: Heparin Sodium (Porcine) (Heparin Sod 5,000 Unit/0.5 Ml Vial) 5,000 units SQ Q8 [facility] Stop: 07/24/21 05:59 Last Admin: 06/24/21 06:47 Dose: 5,000 units Documented by: Promethazine HCl 12.5 mg/ (Sodium Chloride) 50.5 mls @ 202 mls/hr IV Q6H PRN PRN Reason: Nausea And Vomiting Stop: 07/24/21 03:07 Heparin Sodium/Dextrose (Heparin Sodium/Dextrose) 25,000 units in 500 mls @ 34 mls/hr IV .[id number] [facility]; Protocol Stop: 07/24/21 09:59 Last Admin: 06/24/21 10:40 Dose: 1,700 units/hr, 34 mls/hr Documented by: Isosorbide Mononitrate (Isosorbide [place] Extended Rel 60 Mg Tabcr) 60 mg PO DAILY [facility] Stop: 07/24/21 08:59 Last Admin: 06/24/21 09:53 Dose: 60 mg Documented by: Metoprolol Tartrate (Metoprolol Tartrate 25 Mg Tab) 25 mg PO BID [facility] Stop: 07/24/21 20:59 Terazosin HCl (Terazosin Hcl 1 Mg Cap) 2 mg PO HS [facility] Stop: 07/24/21 20:59 Tramadol HCl (Tramadol Hcl 50 Mg Tablet) 25 mg PO Q4H PRN PRN Reason: Pain Stop: 07/24/21 03:07
[2021-06-24 17:17] LABS: Partial Thromboplastin Ratio 2.9
[2021-06-24 17:55] LABS: Partial Thromboplastin Time 79.9 Seconds (21.0-31.0)
[2021-06-24] MEDS: METOPROLOL TARTRATE 25 MG TAB PO SCH (20:44)
[2021-06-24] MEDS: TERAZOSIN HCL 1 MG CAP PO SCH (20:44)
[2021-06-25 00:51] LABS: Partial Thromboplastin Ratio 2.7
[2021-06-25 01:02] LABS: Partial Thromboplastin Time 73.9 Seconds (21.0-31.0)
[2021-06-25] MEDS: HEPARIN SODIUM/DEXTROSE 25,000 UNITS/500 ML BAG IV SCH ×2 (01:18→17:07)
[2021-06-25] MEDS ORDERED: METOPROLOL TARTRATE 1 MG/ML VIAL IV PRN (05:40)
--- NOTE | 2021-06-25 06:54 | Hospitalist Progress Note ---
Date of Service June 25, 2021 Assessment & Plan Admission and Anticipated Discharge Date Admission Date: June 24, 2021 Subjective Patient went into rapid a fib. patinet already on iv heparin. Ordered iv lopre ssor prn. Will monitor. Cardiology on board. Thanks Results & Data Results & Data ([facility]) Vital Signs (Past 12 Hours) Vital Signs Temp Pulse Pulse Resp BP Pulse Ox 06/25/21 04:47 37.3 C 71 18 113/68 95 06/25/21 00:00 74 06/24/21 23:20 37 C 71 20 133/62 97 06/24/21 19:51 37.7 C H 94 H 18 156/75 H 90
[2021-06-25 07:54] LABS: Hematocrit (blood only) 42.4 % (42-52); Hemoglobin 13.8 g/dL (14.0-18.0); Mean Corpuscular Hemoglobin 27.7 pg (25-34); Mean Corpuscular Hgb Conc 32.5 g/dL (32-36); Mean Platelet Volume 12.2 fL (7.4-10.4); Platelet Count 146 K/uL (130-400); RDW Coefficient of Variation 15.6 % (11.5-14.5); RDW Standard Deviation 48.6 fL (36.4-46.3); Red Blood Count 4.99 M/uL (4.7-6.1); White Blood Count 11.28 K/uL (4.8-10.8)
[2021-06-25 08:24] LABS: BUN Creatinine Ratio 20.4 (10-20); Calcium 8.7 mg/dl (8.5-10.1); Creatinine Clr Calc Pharmacy 45.4 ml/min; Est GFR (African American) 39.8 ml/min; Est GFR (Non-African American) 34.4 ml/min; Magnesium 2.2 mg/dl (1.7-2.4); Phosphorus 3.2 mg/dl (2.5-4.9); Potassium 3.9 mmol/L (3.5-5.1)
[2021-06-25 08:36] LABS: Partial Thromboplastin Ratio 2.4
[2021-06-25 08:38] LABS: Partial Thromboplastin Time 66.1 Seconds (21.0-31.0)
[2021-06-25] MEDS ORDERED: 0.2 MICRON FILTER SET 1 EA IV ONE (08:52)
[2021-06-25] MEDS ORDERED: STAT IV Infusion **Titration per Protocol STA (08:52)
[2021-06-25] MEDS ORDERED: AMIODARONE IV BOLUS & DRIP IV STA (08:52)
[2021-06-25] MEDS ORDERED: AMIODARONE / D5W 150 MG/100 ML BAG IV STA (08:59)
[2021-06-25] MEDS: FUROSEMIDE 40 MG/4 ML VIAL IV SCH ×4 (09:00→19:22)
--- NOTE | 2021-06-25 09:00 | Cardiology Progress Note ---
Date of Service June 25, 2021 Assessment & Plan (1) Paroxysmal atrial fibrillation with RVR: (2) Acute respiratory failure with hypoxia: (3) Acute diastolic (congestive) heart failure: (4) Non-ST elevation (NSTEMI) myocardial infarction: (5) Acute on chronic renal failure: Plan: Paroxysmal atrial fibrillation with rapid ventricular response occurring overnight. Recommend addition of intravenous amiodarone. Continue intravenous heparin infusion and aspirin as previously ordered. Creatinine mildly improved overnight. With addition of IV amiodarone, recommend titration of furosemide to 40 mg twice daily. Attempt to maintain negative fluid balance. Assess daily weight via bedside scale. Repeat basic metabolic panel in a.m. Results of CT reviewed demonstrating left basilar atelectasis which would account for abnormal physical exam findings. Mildly elevated white count noted today. Low-grade fever recorded yesterday. Urinalysis appears benign. Blood culture sent. Serum creatinine near baseline, however, mildly elevated on admission. Creat inine stable overnight after treatment with 1 dose of intravenous furosemide. Overall volume status is difficult to assess due to body habitus. Treat with 40 mg of IV furosemide daily and monitor GFR, electrolytes, daily weight, and fluid balance. Admission and Anticipated Discharge Date Admission Date: June 24, 2021 Subjective Patient seen and examined at the bedside. More alert today. Denies chest discomfort or unusual shortness of breath. Converted from sinus rhythm to atrial fibrillation with rapid ventricular response last night at approximately 4:50 AM. Denies any palpitations, lightheadedness, or dizziness. Intravenous heparin infusing. Low-grade fever recorded yesterday. Blood cultures drawn. Hypoxic, requiring 4 L nasal cannula. Fluid balance minimally negative. Review of Systems Review of Systems: All systems reviewed & are unremarkable except as noted in Subjective Physical Exam Constitutional: well developed, well nourished, + ill appearing and + obese Respiratory: no respiratory distress, no labored breathing and no retractions Auscultation: + rales (Left base and mid lung field); no rhonchi and no wheezes Cardiovascular: Rate/Rhythm: regular rate and regular rhythm Heart Sounds: normal S1 and normal S2; no murmur Vessels: radial pulses present; no JVD (Difficult to assess due to body habitus) and no carotid bruit Extremities: + edema (Mild bilateral pedal and ankle edema) Gastrointestinal (Abdomen): Inspection/Auscultation: + abdomen distended and normal bowel sounds; no abdominal edema Percussion/Palpation: abdomen soft; abdomen nontender, no guarding and abdomen not rigid Neurologic: CN's II-XI intact bilaterally and moves all extremities; no focal motor deficits Results & Data ([facility]) Vital Signs (Past 12 Hours) Vital Signs Temp Pulse Pulse Resp BP Pulse Ox 06/25/21 08:00 103 H 06/25/21 07:59 37.3 C 65 20 120/69 92 06/25/21 04:47 37.3 C 71 18 113/68 95 06/25/21 00:00 74 06/24/21 23:20 37 C 71 20 133/62 97
[2021-06-25] MEDS ORDERED: AMIODARONE / D5W 360 MG/200 ML BAG IV ONE (09:08)
[2021-06-25] MEDS: ASPIRIN 81 MG ECTAB PO SCH (09:29)
[2021-06-25] MEDS: METOPROLOL TARTRATE 25 MG TAB PO SCH ×2 (09:30→20:36)
[2021-06-25] MEDS: ISOSORBIDE MONO EXTENDED REL 60 MG TABCR PO SCH (09:31)
--- NOTE | 2021-06-25 14:31 | Hospitalist Progress Note ---
Date of Service June 25, 2021 Assessment & Plan (1) Hypoxia: Plan: Multifactorial : Chronic cough symptoms rule out aspiration, speech eval Supplemental O2 neb treatment ordered on admission Aspiration precautions, swallow eval Acute diastolic HF NSTEMI Troponin elevation - initially believed to be in the setting of kidney dysfunction and elevated blood pressure No angina hx CAD status post PTCA Cardiology consult Re: Troponin elevation, history CAD Echo obtained -EF 50 to 55%. Hypokinesis of the mid and apical anterior wall. Aortic valve sclerosis mild, without significant aortic valvular stenosis. There is mild mitral regurg. Grade 1 diastolic dysfunction. Pt started on IV heparin by cardiology Cont. ASA History of statin intolerance. Transition atenolol to metoprolol tartrate 25 mg twice daily. Patient would be high risk for cardiac catheterization due to acute renal insufficiency. Continue conservative medical management at this time. lasix [address] chest obtained to r/o pna IMPRESSION: 1. Minimal left basilar atelectasis. 2. There is no acute chest disease on these noncontrast images. 3. Cardiomegaly with extensive coronary artery calcification. 4. Very mild pericardial thickening/fluid. 5. A small hiatal hernia. 6. Evidence for ventral abdominal wall hernia. Hypertension, stable Hyperlipidemia, statin intolerance Parkinsonism, ambulatory dysfunction Hyperglycemia rule out DM hemoglobin A1c 6.9% NGHIA Baseline UA, recheck renal function Hold losartan until repeat renal function obtained. Renal ultrasound and Nephrology consultation if with worsening kidney dysfunction PT OT eval once medically stable DVT prophylaxis. now on IV Heparin DNR Patient's , Ms. Marcia Sigala, contact #[phone]. Admission and Anticipated Discharge Date Admission Date: June 24, 2021 Subjective Patient seen in a follow-up of hypoxia, CHF, NSTEMI, NGHIA, A. fib with RVR Patient went into A. fib with RVR early this morning, requiring 4 L of oxygen Patient is already on IV heparin, IV amiodarone started Mildly elevated temp, blood cultures taken Currently patient is sitting up in a chair, in no acute distress Patient's daughter present at the bedside, updated. Currently denies any chest pain, increased shortness of breath, palpitations, abdominal pain nausea or vomiting. Review of Systems Review of Systems: All systems reviewed & are unremarkable except as noted in Subjective Physical Exam Physical Exam: GENERAL: obese M, flat affect, no respiratory distress HEENT: NC/AT, partial alopecia, EOMI, PERRL, nasal cannula in place 4L NECK : Supple, short neck, no tenderness CHEST : CTAB, no wheezing HEART : RRR, no obvious murmurs ABDOMEN: Some distention, nontender EXTREMITIES : mild bilateral LE swelling (chronic as per patient), no LE tenderness NEUROLOGIC : awake and alert, answering questions appropriately, no facial asymmetry, resting RUE tremors, gait and stance not assessed SKIN: Normal color, warm Results & Data Results & Data ([facility]) Vital Signs (Past 12 Hours) Vital Signs Temp Pulse Pulse Resp BP Pulse Ox 06/25/21 11:48 36.3 C L 124 H 18 112/62 92 06/25/21 08:00 103 H 06/25/21 07:59 37.3 C 65 20 120/69 92 06/25/21 04:47 37.3 C 71 18 113/68 95 Laboratory Results 06/25/21 06/25/21 06/25/21 Range/Units 07:33 07:33 07:33 WBC 11.28 H (4.8-10.8) K/uL RBC 4.99 (4.7-6.1) M/uL Hgb 13.8 L (14.0-18.0) g/dL Hct 42.4 (42-52) % MCV 85.0 (80-100) fL MCH 27.7 (25-34) pg MCHC 32.5 (32-36) g/dL RDW Std Deviation 48.6 H (36.4-46.3) fL RDW Coeff of Sabrina 15.6 H (11.5-14.5) % Plt Count 146 (130-400) K/uL MPV 12.2 H (7.4-10.4) fL APTT 66.1 H* (21.0-31.0) Seconds PTT Ratio 2.4 Sodium 137 (136-145) mmol/L Potassium 3.9 (3.5-5.1) mmol/L Chloride 100 (98-107) mmol/L Carbon Dioxide 30 (21-32) mmol/L Anion Gap 7 (3-11) BUN 38 H (6-23) mg/dl Creatinine 1.86 H (0.6-1.4) mg/dl Est Cr Clr Drug Dosing 45.4 ml/min Est GFR ( Amer) 39.8 ml/min Est GFR (Non-Af Amer) 34.4 ml/min BUN/Creatinine Ratio 20.4 H (10-20) Glucose 157 H (70-99(Fasting)) mg/dl Calcium 8.7 (8.5-10.1) mg/dl Phosphorus 3.2 (2.5-4.9) mg/dl Magnesium 2.2 (1.7-2.4) mg/dl Troponin I High Sens (0-20) pg/ml 06/25/21 06/24/21 06/24/21 Range/Units 00:02 20:54 16:41 WBC (4.8-10.8) K/uL RBC (4.7-6.1) M/uL Hgb (14.0-18.0) g/dL Hct (42-52) % MCV (80-100) fL MCH (25-34) pg MCHC (32-36) g/dL RDW Std Deviation (36.4-46.3) fL RDW Coeff of Sabrina (11.5-14.5) % Plt Count (130-400) K/uL MPV (7.4-10.4) fL APTT 73.9 H* 79.9 H* (21.0-31.0) Seconds PTT Ratio 2.7 2.9 Sodium (136-145) mmol/L Potassium (3.5-5.1) mmol/L Chloride (98-107) mmol/L Carbon Dioxide (21-32) mmol/L Anion Gap (3-11) BUN (6-23) mg/dl Creatinine (0.6-1.4) mg/dl Est Cr Clr Drug Dosing ml/min Est GFR ( Amer) ml/min Est GFR (Non-Af Amer) ml/min BUN/Creatinine Ratio (10-20) Glucose (70-99(Fasting)) mg/dl Calcium (8.5-10.1) mg/dl Phosphorus (2.5-4.9) mg/dl Magnesium (1.7-2.4) mg/dl Troponin I High Sens 5153.9 H* D (0-20) pg/ml Medications Administered Current Inpatient Medications Acetaminophen (Acetaminophen 325 Mg Tab) 650 mg PO Q4H PRN PRN Reason: Pain or Fever Stop: 07/24/21 03:07 Aspirin (Aspirin 81 Mg Ectab) 162 mg PO DAILY [facility] Stop: 07/24/21 08:59 Last Admin: 06/25/21 09:29 Dose: 162 mg Documented by: Furosemide (Furosemide 40 Mg/4 Ml Vial) 40 mg IV [id number] [facility] Stop: 07/25/21 09:14 Last Admin: 06/25/21 09:32 Dose: 40 mg Documented by: Heparin Sodium (Porcine) (Heparin Sod 5,000 Unit/0.5 Ml Vial) 5,000 units SQ Q8 [facility] Stop: 07/24/21 05:59 Last Admin: 06/24/21 06:47 Dose: 5,000 units Documented by: Promethazine HCl 12.5 mg/ (Sodium Chloride) 50.5 mls @ 202 mls/hr IV Q6H PRN PRN Reason: Nausea And Vomiting Stop: 07/24/21 03:07 Heparin Sodium/Dextrose (Heparin Sodium/Dextrose) 25,000 units in 500 mls @ 30 mls/hr IV .[id number] [facility]; Protocol Stop: 07/24/21 09:59 Last Titration: 06/25/21 07:24 Dose: 1,500 units/hr, 30 mls/hr Documented by: Amiodarone HCl/Dextrose (Nexterone / D5w) 360 mg in 200 mls @ 33.333 mls/hr IV ONE ONE Stop: 06/25/21 15:07 Last Admin: 06/25/21 10:31 Dose: 33.3 mls/hr Documented by: Amiodarone HCl/Dextrose (Nexterone / D5w) 360 mg in 200 mls @ 16.667 mls/hr IV .Q12H [facility] Stop: 07/25/21 15:07 Isosorbide Mononitrate (Isosorbide [place] Extended Rel 60 Mg Tabcr) 60 mg PO DAILY [facility] Stop: 07/24/21 08:59 Last Admin: 06/25/21 09:31 Dose: 60 mg Documented by: Metoprolol Tartrate (Metoprolol Tartrate 25 Mg Tab) 25 mg PO BID [facility] Stop: 07/24/21 20:59 Last Admin: 06/25/21 09:30 Dose: 25 mg Documented by: Metoprolol Tartrate (Metoprolol Tartrate 1 Mg/Ml Vial) 5 mg IV Q6 PRN; Protocol PRN Reason: Tachycardia Stop: 07/25/21 05:59 Last Admin: 06/25/21 06:09 Dose: 5 mg Documented by: Terazosin HCl (Terazosin Hcl 1 Mg Cap) 2 mg PO HS [facility] Stop: 07/24/21 20:59 Last Admin: 06/24/21 20:44 Dose: 2 mg Documented by: Tramadol HCl (Tramadol Hcl 50 Mg Tablet) 25 mg PO Q4H PRN PRN Reason: Pain Stop: 07/24/21 03:07
[2021-06-25] MEDS: AMIODARONE / D5W 360 MG/200 ML BAG IV SCH (16:30)
[2021-06-25] MEDS: TERAZOSIN HCL 1 MG CAP PO SCH (20:36)
--- NOTE | 2021-06-25 23:21 | Electrocardiogram Report ---
Test Reason : Blood Pressure : / mmHG Vent. Rate : 123 BPM Atrial Rate : 129 BPM P-R Int : 000 ms QRS Dur : 162 ms QT Int : 336 ms P-R-T Axes : 000 260 050 degrees QTc Int : 481 ms Atrial fibrillation with rapid ventricular response Right bundle branch block Abnormal ECG When compared with ECG of 23-JUN-2021 22:39, Atrial fibrillation has replaced Sinus rhythm Confirmed by Franck Mayfield ([id number]) on 06/25/2021 11:21:39 PM Referred By: REFERRED SELF Confirmed By:Franck Mayfield
[2021-06-26] MEDS: AMIODARONE / D5W 360 MG/200 ML BAG IV SCH (04:20)
[2021-06-26 06:18] LABS: Hematocrit (blood only) 39.6 % (42-52); Hemoglobin 12.6 g/dL (14.0-18.0); Mean Corpuscular Hemoglobin 27.5 pg (25-34); Mean Corpuscular Hgb Conc 31.8 g/dL (32-36); Mean Corpuscular Volume 86.3 fL (80-100); Mean Platelet Volume 12.1 fL (7.4-10.4); Platelet Count 149 K/uL (130-400); RDW Coefficient of Variation 15.3 % (11.5-14.5); RDW Standard Deviation 48.6 fL (36.4-46.3); Red Blood Count 4.59 M/uL (4.7-6.1); White Blood Count 9.95 K/uL (4.8-10.8)
[2021-06-26 06:50] LABS: BUN Creatinine Ratio 20.2 (10-20); Calcium 8.6 mg/dl (8.5-10.1); Creatinine Clr Calc Pharmacy 43.8 ml/min; Est GFR (African American) 38.1 ml/min; Est GFR (Non-African American) 32.9 ml/min; Magnesium 2.1 mg/dl (1.7-2.4); Phosphorus 3.6 mg/dl (2.5-4.9); Potassium 3.8 mmol/L (3.5-5.1)
[2021-06-26 07:47] LABS: Partial Thromboplastin Time 56.1 Seconds (21.0-31.0)
[2021-06-26] MEDS: METOPROLOL TARTRATE 25 MG TAB PO SCH (07:59)
[2021-06-26] MEDS: FUROSEMIDE 40 MG/4 ML VIAL IV SCH ×2 (08:00→17:16)
[2021-06-26] MEDS: ASPIRIN 81 MG ECTAB PO SCH (08:00)
[2021-06-26] MEDS: ISOSORBIDE MONO EXTENDED REL 60 MG TABCR PO SCH (08:00)
[2021-06-26] MEDS: HEPARIN SODIUM/DEXTROSE 25,000 UNITS/500 ML BAG IV SCH (08:29)
--- NOTE | 2021-06-26 10:50 | Cardiology Progress Note ---
Date of Service June 26, 2021 Assessment & Plan (1) Paroxysmal atrial fibrillation with RVR: (2) Acute respiratory failure with hypoxia: (3) Acute diastolic (congestive) heart failure: (4) Non-ST elevation (NSTEMI) myocardial infarction: (5) Acute on chronic renal failure: Plan: Discontinue IV amiodarone. Pursue rate control strategy at this time. Titrate metorprolol to 50mg BID. Continue IV heparin. Ultimately with require transition to oral warfarin. Renal function stable with hyponatremia today and worsening edema. Continue IV lasix. Attempt to maintain negative fluid balance. Assess daily weight via bedside scale. Repeat basic metabolic panel in a.m. Speech and swallow evaluation of possible aspiration. RIGO/OHS suspected. Consider pulmonary evaluation. Results of CT reviewed demonstrating left basilar atelectasis which would account for abnormal physical exam findings. Mildly elevated white count noted today. Low-grade fever recorded yesterday. Urinalysis appears benign. Blood culture sent. Admission and Anticipated Discharge Date Admission Date: June 24, 2021 Subjective Patient seen and examined at the bedside. Denies CP. Reports difficulty swallowing and SOB when eating. Worsening edema today. Positive fluid balance. Telemetry demonstrates atrial fid with CVR. SAo2 96% on 4LNC. Review of Systems Review of Systems: All systems reviewed & are unremarkable except as noted in Subjective Physical Exam Constitutional: well developed, well nourished, + ill appearing and + obese Respiratory: no respiratory distress, no labored breathing and no retractions Auscultation: + rales (Left base and mid lung field); no rhonchi and no wheezes Cardiovascular: Rate/Rhythm: regular rate and regular rhythm Heart Sounds: normal S1 and normal S2; no murmur Vessels: radial pulses present; no JVD (Difficult to assess due to body habitus) and no carotid bruit Extremities: + edema (1+ bilateral pedal and ankle edema) Gastrointestinal (Abdomen): Inspection/Auscultation: + abdomen distended and normal bowel sounds; no abdominal edema Percussion/Palpation: abdomen soft; abdomen nontender, no guarding and abdomen not rigid Neurologic: CN's II-XI intact bilaterally and moves all extremities; no focal motor deficits Results & Data ([facility]) Vital Signs (Past 12 Hours) Vital Signs Temp Pulse Pulse Resp BP Pulse Ox 06/26/21 09:00 82 06/26/21 06:45 36.5 C 87 18 103/56 L 96 06/26/21 04:01 36.4 C L 83 20 98/60 L 94 06/25/21 22:57 36.6 C 73 20 125/70 94
--- NOTE | 2021-06-26 13:10 | Hospitalist Progress Note ---
Date of Service June 26, 2021 Assessment & Plan (1) Hypoxia: Plan: Multifactorial : Chronic cough symptoms rule out aspiration, speech eval Supplemental O2 neb treatment ordered on admission Aspiration precautions, swallow eval Acute diastolic HF NSTEMI Troponin elevation - initially believed to be in the setting of kidney dysfunction and elevated blood pressure No angina hx CAD status post PTCA Cardiology consult Re: Troponin elevation, history CAD Echo obtained -EF 50 to 55%. Hypokinesis of the mid and apical anterior wall. Aortic valve sclerosis mild, without significant aortic valvular stenosis. There is mild mitral regurg. Grade 1 diastolic dysfunction. Pt started on IV heparin by cardiology Cont. ASA History of statin intolerance. Transition atenolol to metoprolol tartrate 25 mg twice daily. Now increased to 50 mg bid Patient would be high risk for cardiac catheterization due to acute renal insufficiency. Continue conservative medical management at this time. lasix 40 iv BID Afib w/ rvr pt started on iv amiodarone yesterday now stopped and metoprolol increased to 50 mg bid pt cont. to be in Afib rate controlled CT chest obtained to r/o pna IMPRESSION: 1. Minimal left basilar atelectasis. 2. There is no acute chest disease on these noncontrast images. 3. Cardiomegaly with extensive coronary artery calcification. 4. Very mild pericardial thickening/fluid. 5. A small hiatal hernia. 6. Evidence for ventral abdominal wall hernia. Hypertension, stable Hyperlipidemia, statin intolerance Parkinsonism, ambulatory dysfunction Difficulty swallowing swallow study eval on tuesday Hyperglycemia rule out DM hemoglobin A1c 6.9% NGHIA Baseline UA, recheck renal function Hold losartan until repeat renal function obtained. Renal ultrasound and Nephrology consultation if with worsening kidney dysfunction PT OT eval once medically stable DVT prophylaxis. now on IV Heparin DNR Patient's , Ms. Marcia Sigala, contact #[phone]. Admission and Anticipated Discharge Date Admission Date: June 24, 2021 Subjective Patient seen in a follow-up of hypoxia, CHF, NSTEMI, NGHIA, A. fib with RVR Patient went into A. fib with RVR yesterday, now in Afib rate controlled requiring 4 L of oxygen IV amio stopped c/w IV heparin Currently patient is sitting up in a chair, in no acute distress Patient's present at the bedside, updated. Currently denies any chest pain, increased shortness of breath, palpitations, abdominal pain nausea or vomiting. Reports difficulty swallowing, plan for swallow eval on tuesday Review of Systems Review of Systems: All systems reviewed & are unremarkable except as noted in Subjective Physical Exam Physical Exam: GENERAL: obese M, flat affect, no respiratory distress HEENT: NC/AT, partial alopecia, EOMI, PERRL, nasal cannula in place 4L NECK : Supple, short neck, no tenderness CHEST : CTAB, no wheezing HEART : RRR, no obvious murmurs ABDOMEN: Some distention, nontender EXTREMITIES : mild bilateral LE swelling (chronic as per patient), no LE tenderness NEUROLOGIC : awake and alert, answering questions appropriately, no facial asymmetry, resting RUE tremors, gait and stance not assessed SKIN: Normal color, warm Results & Data Results & Data ([facility]) Vital Signs (Past 12 Hours) Vital Signs Temp Pulse Pulse Resp BP Pulse Ox 06/26/21 11:39 36.5 C 86 14 109/66 98 06/26/21 09:00 82 06/26/21 06:45 36.5 C 87 18 103/56 L 96 06/26/21 04:01 36.4 C L 83 20 98/60 L 94 Laboratory Results 06/26/21 06/26/21 06/26/21 Range/Units 05:51 05:51 05:51 WBC 9.95 (4.8-10.8) K/uL RBC 4.59 L (4.7-6.1) M/uL Hgb 12.6 L (14.0-18.0) g/dL Hct 39.6 L (42-52) % MCV 86.3 (80-100) fL MCH 27.5 (25-34) pg MCHC 31.8 L (32-36) g/dL RDW Std Deviation 48.6 H (36.4-46.3) fL RDW Coeff of Sabrina 15.3 H (11.5-14.5) % Plt Count 149 (130-400) K/uL MPV 12.1 H (7.4-10.4) fL APTT 56.1 H* (21.0-31.0) Seconds PTT Ratio 2.0 Sodium 131 L (136-145) mmol/L Potassium 3.8 (3.5-5.1) mmol/L Chloride 95 L (98-107) mmol/L Carbon Dioxide 30 (21-32) mmol/L Anion Gap 6 (3-11) BUN 39 H (6-23) mg/dl Creatinine 1.93 H (0.6-1.4) mg/dl Est Cr Clr Drug Dosing 43.8 ml/min Est GFR ( Amer) 38.1 ml/min Est GFR (Non-Af Amer) 32.9 ml/min BUN/Creatinine Ratio 20.2 H (10-20) Glucose 128 H (70-99(Fasting)) mg/dl Calcium 8.6 (8.5-10.1) mg/dl Phosphorus 3.6 (2.5-4.9) mg/dl Magnesium 2.1 (1.7-2.4) mg/dl Medications Administered Current Inpatient Medications Acetaminophen (Acetaminophen 325 Mg Tab) 650 mg PO Q4H PRN PRN Reason: Pain or Fever Stop: 07/24/21 03:07 Aspirin (Aspirin 81 Mg Ectab) 162 mg PO DAILY [facility] Stop: 07/24/21 08:59 Last Admin: 06/26/21 08:00 Dose: 162 mg Documented by: Furosemide (Furosemide 40 Mg/4 Ml Vial) 40 mg IV [id number] [facility] Stop: 07/25/21 09:14 Last Admin: 06/26/21 08:00 Dose: 40 mg Documented by: Heparin Sodium (Porcine) (Heparin Sod 5,000 Unit/0.5 Ml Vial) 5,000 units SQ Q8 [facility] Stop: 07/24/21 05:59 Last Admin: 06/24/21 06:47 Dose: 5,000 units Documented by: Promethazine HCl 12.5 mg/ (Sodium Chloride) 50.5 mls @ 202 mls/hr IV Q6H PRN PRN Reason: Nausea And Vomiting Stop: 07/24/21 03:07 Heparin Sodium/Dextrose (Heparin Sodium/Dextrose) 25,000 units in 500 mls @ 30 mls/hr IV .[id number] [facility]; Protocol Stop: 07/24/21 09:59 Last Admin: 06/26/21 08:29 Dose: 1,500 units/hr, 30 mls/hr Documented by: Isosorbide Mononitrate (Isosorbide [place] Extended Rel 60 Mg Tabcr) 60 mg PO DAILY [facility] Stop: 07/24/21 08:59 Last Admin: 06/26/21 08:00 Dose: 60 mg Documented by: Metoprolol Tartrate (Metoprolol Tartrate 1 Mg/Ml Vial) 5 mg IV Q6 PRN; Protocol PRN Reason: Tachycardia Stop: 07/25/21 05:59 Last Admin: 06/25/21 06:09 Dose: 5 mg Documented by: Metoprolol Tartrate (Metoprolol Tartrate 50 Mg Tab) 50 mg PO BID [facility] Stop: 07/26/21 20:59 Terazosin HCl (Terazosin Hcl 1 Mg Cap) 2 mg PO HS [facility] Stop: 07/24/21 20:59 Last Admin: 06/25/21 20:36 Dose: 2 mg Documented by: Tramadol HCl (Tramadol Hcl 50 Mg Tablet) 25 mg PO Q4H PRN PRN Reason: Pain Stop: 07/24/21 03:07
--- NOTE | 2021-06-26 13:50 | Electrocardiogram Report ---
Test Reason : Blood Pressure : / mmHG Vent. Rate : 085 BPM Atrial Rate : 092 BPM P-R Int : 000 ms QRS Dur : 172 ms QT Int : 442 ms P-R-T Axes : 000 -89 031 degrees QTc Int : 525 ms Atrial fibrillation Left axis deviation Right bundle branch block Abnormal ECG When compared with ECG of 25-JUN-2021 05:49, No significant change was found Confirmed by Loco Bhardwaj ([id number]) on 06/26/2021 1:49:40 PM Referred By: REFERRED SELF Confirmed By:Loco Bhardwaj
[2021-06-26] MEDS: METOPROLOL TARTRATE 50 MG TAB PO SCH (20:58)
[2021-06-26] MEDS: TERAZOSIN HCL 1 MG CAP PO SCH (20:58)
[2021-06-27] MEDS: HEPARIN SODIUM/DEXTROSE 25,000 UNITS/500 ML BAG IV SCH ×2 (00:57→17:56)
[2021-06-27 07:34] LABS: Hematocrit (blood only) 38.9 % (42-52); Hemoglobin 12.5 g/dL (14.0-18.0); Mean Corpuscular Hemoglobin 27.2 pg (25-34); Mean Corpuscular Hgb Conc 32.1 g/dL (32-36); Mean Corpuscular Volume 84.6 fL (80-100); Mean Platelet Volume 12.2 fL (7.4-10.4); Platelet Count 153 K/uL (130-400); RDW Coefficient of Variation 14.9 % (11.5-14.5); RDW Standard Deviation 46.3 fL (36.4-46.3); White Blood Count 7.77 K/uL (4.8-10.8)
--- NOTE | 2021-06-27 07:40 | Hospitalist Progress Note ---
Date of Service June 27, 2021 Assessment & Plan (1) Hypoxia: Plan: Multifactorial : Chronic cough symptoms rule out aspiration, speech eval Supplemental O2 neb treatment ordered on admission Aspiration precautions, swallow eval Acute diastolic HF NSTEMI Troponin elevation - initially believed to be in the setting of kidney dysfunction and elevated blood pressure No angina hx CAD status post PTCA Cardiology consult Re: Troponin elevation, history CAD Echo obtained -EF 50 to 55%. Hypokinesis of the mid and apical anterior wall. Aortic valve sclerosis mild, without significant aortic valvular stenosis. There is mild mitral regurg. Grade 1 diastolic dysfunction. Pt started on IV heparin by cardiology Cont. ASA History of statin intolerance. Transition atenolol to metoprolol tartrate -> now switched to succinate Patient would be high risk for cardiac catheterization due to acute renal insufficiency. Continue conservative medical management at this time. lasix 40 iv BID increase to TID Afib w/ rvr pt started on iv amiodarone now stopped and metoprolol increased to 50 mg bid pt cont. to be in Afib rate controlled on IV heparin, start warfarin CT chest obtained to r/o pna IMPRESSION: 1. Minimal left basilar atelectasis. 2. There is no acute chest disease on these noncontrast images. 3. Cardiomegaly with extensive coronary artery calcification. 4. Very mild pericardial thickening/fluid. 5. A small hiatal hernia. 6. Evidence for ventral abdominal wall hernia. Hypertension, stable Hyperlipidemia, statin intolerance Parkinsonism, ambulatory dysfunction Difficulty swallowing swallow study eval on Tuesday Hyperglycemia rule out DM hemoglobin A1c 6.9% NGHIA Baseline UA, recheck renal function Hold losartan for now Renal ultrasound and Nephrology consultation if with worsening kidney dysfunction PT OT eval once medically stable DVT prophylaxis. now on IV Heparin DNR Patient's , Ms. Marcia Sigala, contact #[phone]. Admission and Anticipated Discharge Date Admission Date: June 24, 2021 Subjective Patient seen in a follow-up of hypoxia, CHF, NSTEMI, NGHIA, A. fib with RVR Currently patient is sitting up in a chair, in no acute distress Currently denies any chest pain, increased shortness of breath, palpitations, abdominal pain nausea or vomiting. c/w IV heparin Reports difficulty swallowing, plan for swallow eval on tuesday Not happy about blood draws Review of Systems Review of Systems: All systems reviewed & are unremarkable except as noted in Subjective Physical Exam Physical Exam: GENERAL: obese M, flat affect, no respiratory distress HEENT: NC/AT, partial alopecia, EOMI, PERRL, nasal cannula in place 2L NECK : Supple, short neck, no tenderness CHEST : CTAB, no wheezing HEART : RRR, no obvious murmurs ABDOMEN: Some distention, nontender EXTREMITIES : 1+ bilateral LE swelling (chronic as per patient), no LE tenderness NEUROLOGIC : awake and alert, answering questions appropriately, no facial asymmetry, resting RUE tremors, gait and stance not assessed SKIN: Normal color, warm Results & Data Results & Data ([facility]) Vital Signs (Past 12 Hours) Vital Signs Temp Pulse Pulse Resp BP Pulse Ox 06/27/21 07:27 75 06/27/21 07:08 36.4 C L 82 20 102/64 97 06/27/21 03:52 36.7 C 82 18 104/63 97 06/27/21 00:52 85 06/26/21 22:59 37.0 C 84 18 99/61 L 98 Medications Administered Current Inpatient Medications Acetaminophen (Acetaminophen 325 Mg Tab) 650 mg PO Q4H PRN PRN Reason: Pain or Fever Stop: 07/24/21 03:07 Aspirin (Aspirin 81 Mg Ectab) 162 mg PO DAILY [facility] Stop: 07/24/21 08:59 Last Admin: 06/26/21 08:00 Dose: 162 mg Documented by: Furosemide (Furosemide 40 Mg/4 Ml Vial) 40 mg IV [id number] [facility] Stop: 07/25/21 09:14 Last Admin: 06/26/21 17:16 Dose: 40 mg Documented by: Heparin Sodium (Porcine) (Heparin Sod 5,000 Unit/0.5 Ml Vial) 5,000 units SQ Q8 [facility] Stop: 07/24/21 05:59 Last Admin: 06/24/21 06:47 Dose: 5,000 units Documented by: Promethazine HCl 12.5 mg/ (Sodium Chloride) 50.5 mls @ 202 mls/hr IV Q6H PRN PRN Reason: Nausea And Vomiting Stop: 07/24/21 03:07 Heparin Sodium/Dextrose (Heparin Sodium/Dextrose) 25,000 units in 500 mls @ 30 mls/hr IV .[id number] [facility]; Protocol Stop: 07/24/21 09:59 Last Admin: 06/27/21 00:57 Dose: 1,500 units/hr, 30 mls/hr Documented by: Isosorbide Mononitrate (Isosorbide [place] Extended Rel 60 Mg Tabcr) 60 mg PO DAILY [facility] Stop: 07/24/21 08:59 Last Admin: 06/26/21 08:00 Dose: 60 mg Documented by: Metoprolol Tartrate (Metoprolol Tartrate 1 Mg/Ml Vial) 5 mg IV Q6 PRN; Protocol PRN Reason: Tachycardia Stop: 07/25/21 05:59 Last Admin: 06/25/21 06:09 Dose: 5 mg Documented by: Metoprolol Tartrate (Metoprolol Tartrate 50 Mg Tab) 50 mg PO BID [facility] Stop: 07/26/21 20:59 Last Admin: 06/26/21 20:58 Dose: 50 mg Documented by: Terazosin HCl (Terazosin Hcl 1 Mg Cap) 2 mg PO HS [facility] Stop: 07/24/21 20:59 Last Admin: 06/26/21 20:58 Dose: 2 mg Documented by: Tramadol HCl (Tramadol Hcl 50 Mg Tablet) 25 mg PO Q4H PRN PRN Reason: Pain Stop: 07/24/21 03:07
[2021-06-27 08:13] LABS: BUN Creatinine Ratio 20.9 (10-20); Calcium 8.9 mg/dl (8.5-10.1); Creatinine Clr Calc Pharmacy 44.9 ml/min; Est GFR (African American) 38.6 ml/min; Est GFR (Non-African American) 33.3 ml/min; Phosphorus 3.5 mg/dl (2.5-4.9); Potassium 3.9 mmol/L (3.5-5.1)
[2021-06-27 08:20] LABS: Partial Thromboplastin Ratio 1.9
[2021-06-27] MEDS: ASPIRIN 81 MG ECTAB PO SCH (08:56)
[2021-06-27] MEDS: ISOSORBIDE MONO EXTENDED REL 60 MG TABCR PO SCH (08:57)
[2021-06-27] MEDS: METOPROLOL TARTRATE 50 MG TAB PO SCH (08:57)
[2021-06-27] MEDS: FUROSEMIDE 40 MG/4 ML VIAL IV SCH ×3 (08:58→20:35)
[2021-06-27 09:09] LABS: Partial Thromboplastin Time 51.9 Seconds (21.0-31.0)
--- NOTE | 2021-06-27 10:46 | Cardiology Progress Note ---
Date of Service June 27, 2021 Assessment & Plan (1) Paroxysmal atrial fibrillation with RVR: (2) Acute respiratory failure with hypoxia: (3) Acute diastolic (congestive) heart failure: (4) Non-ST elevation (NSTEMI) myocardial infarction: (5) Acute on chronic renal failure: Plan: 76-year-old male with acute on chronic diastolic heart failure, mixed etiology respiratory failure complicated by atrial fibrillation. Continue rate control with metoprolol switching to metoprolol succinate for heart failure indications Increase furosemide 40 mg IV 3 times daily for further diuresis following renal function closely exam still reflects right greater than left heart failure Would recommend initiating warfarin no further cardiac procedures planned this admission. Expect patient tolerance will limit the length of his stay Humidify oxygen suspect patient will require at least nocturnal use on discharge Admission and Anticipated Discharge Date Admission Date: June 24, 2021 Subjective Patient seen and examined, chart, medications, telemetry reviewed. Unhappy with hospitalization, blood draws, oxygen use Has manifested some diuresis but still with leg and abdominal distention, minimal reduction in weight Heart rate is coming under better control Review of Systems Review of Systems: All systems reviewed & are unremarkable except as noted in Subjective Physical Exam Constitutional: well nourished and + obese Eyes: PERRL, conjunctivae normal, anicteric sclerae Neck: trachea midline, no thyromegaly + thick neck Respiratory: no respiratory distress, no labored breathing and no retractions Auscultation: + rales (Left base and mid lung field); no rhonchi and no wheezes Cardiovascular: Rate/Rhythm: + irregularly irregular Heart Sounds: normal S1 and normal S2; no murmur Vessels: radial pulses present; no JVD (Difficult to assess due to body habitus) and no carotid bruit Extremities: + edema (2+ bilateral pedal and ankle edema) Gastrointestinal (Abdomen): Inspection/Auscultation: + abdomen distended and normal bowel sounds; no abdominal edema Percussion/Palpation: abdomen soft; abdomen nontender, no guarding and abdomen not rigid Neurologic: CN's II-XI intact bilaterally and moves all extremities; no focal motor deficits Results & Data ([facility]) Vital Signs (Past 12 Hours) Vital Signs Temp Pulse Pulse Resp BP Pulse Ox 06/27/21 10:00 96 06/27/21 07:27 75 06/27/21 07:08 36.4 C L 82 20 102/64 97 06/27/21 03:52 36.7 C 82 18 104/63 97 06/27/21 00:52 85 06/26/21 22:59 37.0 C 84 18 99/61 L 98 Laboratory Results Laboratory Results - last 24 hr 06/27/21 06/27/21 06/27/21 06:53 06:53 06:53 WBC 7.77 RBC 4.60 L Hgb 12.5 L Hct 38.9 L MCV 84.6 MCH 27.2 MCHC 32.1 RDW Std Deviation 46.3 RDW Coeff of Sabrina 14.9 H Plt Count 153 MPV 12.2 H APTT 51.9 H* PTT Ratio 1.9 Sodium 134 L Potassium 3.9 Chloride 94 L Carbon Dioxide 33 H Anion Gap 7 BUN 40 H Creatinine 1.91 H Est Cr Clr Drug Dosing 44.9 Est GFR ( Amer) 38.6 Est GFR (Non-Af Amer) 33.3 BUN/Creatinine Ratio 20.9 H Glucose 104 H Calcium 8.9 Phosphorus 3.5 Magnesium 2.0
[2021-06-27] MEDS: WARFARIN SOD 5 MG TAB PO SCH (17:56)
[2021-06-27] MEDS: TERAZOSIN HCL 1 MG CAP PO SCH (20:36)
[2021-06-27] MEDS: METOPROLOL SUCC 50MG EXT REL TAB PO SCH (20:36)
[2021-06-28 07:31] LABS: Hematocrit (blood only) 38.1 % (42-52); Hemoglobin 12.4 g/dL (14.0-18.0); Mean Corpuscular Hemoglobin 27.2 pg (25-34); Mean Corpuscular Hgb Conc 32.5 g/dL (32-36); Mean Corpuscular Volume 83.6 fL (80-100); Mean Platelet Volume 12.3 fL (7.4-10.4); Platelet Count 165 K/uL (130-400); RDW Coefficient of Variation 14.6 % (11.5-14.5); RDW Standard Deviation 44.6 fL (36.4-46.3); Red Blood Count 4.56 M/uL (4.7-6.1)
--- NOTE | 2021-06-28 07:33 | Hospitalist Progress Note ---
Date of Service June 28, 2021 Assessment & Plan (1) Hypoxia: Plan: Multifactorial : Chronic cough symptoms rule out aspiration, speech eval Supplemental O2 neb treatment ordered on admission Aspiration precautions, swallow eval Acute diastolic HF NSTEMI Troponin elevation - initially believed to be in the setting of kidney dysfunction and elevated blood pressure No angina hx CAD status post PTCA Cardiology consult Re: Troponin elevation, history CAD Echo obtained -EF 50 to 55%. Hypokinesis of the mid and apical anterior wall. Aortic valve sclerosis mild, without significant aortic valvular stenosis. There is mild mitral regurg. Grade 1 diastolic dysfunction. Pt started on IV heparin by cardiology Cont. ASA History of statin intolerance. Transition atenolol to metoprolol tartrate -> now switched to succinate 50 mg bid Patient would be high risk for cardiac catheterization due to acute renal insufficiency. Continue conservative medical management at this time. lasix 40 iv BID increase to TID Afib w/ rvr pt started on iv amiodarone now stopped and metoprolol increased to 50 mg bid pt cont. to be in Afib rate controlled on IV heparin, started warfarin CT chest obtained to r/o pna IMPRESSION: 1. Minimal left basilar atelectasis. 2. There is no acute chest disease on these noncontrast images. 3. Cardiomegaly with extensive coronary artery calcification. 4. Very mild pericardial thickening/fluid. 5. A small hiatal hernia. 6. Evidence for ventral abdominal wall hernia. Hypertension, stable Hyperlipidemia, statin intolerance Parkinsonism, ambulatory dysfunction Nocturnal hypoxia -Study obtained for nocturnal hypoxia, plan to discharge with night oxygen Difficulty swallowing swallow study eval on Tuesday Hyperglycemia rule out DM hemoglobin A1c 6.9% NGHIA Baseline UA, recheck renal function Hold losartan for now Renal ultrasound and Nephrology consultation if with worsening kidney dysfunction PT OT eval once medically stable DVT prophylaxis. now on IV Heparin DNR Patient's , Ms. Marcia Sigala, contact #[phone]. Admission and Anticipated Discharge Date Admission Date: June 24, 2021 Subjective Patient seen in a follow-up of hypoxia, CHF, NSTEMI, NGHIA, A. fib with RVR Currently patient is sitting up in a chair, in no acute distress Denies any chest pain, increased shortness of breath, palpitations, abdominal pain nausea or vomiting. c/w IV heparin Reports difficulty swallowing, plan for swallow eval on tuesday Review of Systems Review of Systems: All systems reviewed & are unremarkable except as noted in Subjective Physical Exam Physical Exam: GENERAL: obese M, flat affect, no respiratory distress HEENT: NC/AT, partial alopecia, EOMI, PERRL, nasal cannula in place 2L NECK : Supple, short neck, no tenderness CHEST : CTAB, no wheezing HEART : RRR, no obvious murmurs ABDOMEN: Some distention, nontender EXTREMITIES : 1+ bilateral LE swelling (chronic as per patient), no LE tenderness NEUROLOGIC : awake and alert, answering questions appropriately, no facial asymmetry, resting RUE tremors, gait and stance not assessed SKIN: Normal color, warm Results & Data Results & Data ([facility]) Vital Signs (Past 12 Hours) Vital Signs Temp Pulse Pulse Pulse Resp BP Pulse Ox 06/28/21 02:23 77 06/28/21 00:40 91 H 06/27/21 23:30 37 C 74 18 109/71 92 06/27/21 21:41 83 06/27/21 19:33 36.9 C 106 H 18 114/62 90 Pulse Ox 06/28/21 02:23 90 06/28/21 00:40 06/27/21 23:30 06/27/21 21:41 93 06/27/21 19:33 Laboratory Results 06/28/21 06/28/21 06/28/21 Range/Units 06:39 06:39 06:39 WBC 7.90 (4.8-10.8) K/uL RBC 4.56 L (4.7-6.1) M/uL Hgb 12.4 L (14.0-18.0) g/dL Hct 38.1 L (42-52) % MCV 83.6 (80-100) fL MCH 27.2 (25-34) pg MCHC 32.5 (32-36) g/dL RDW Std Deviation 44.6 (36.4-46.3) fL RDW Coeff of Sabrina 14.6 H (11.5-14.5) % Plt Count 165 (130-400) K/uL MPV 12.3 H (7.4-10.4) fL PT (9.0-12.0) Seconds INR (0.9-1.1) APTT 47.1 H* (21.0-31.0) Seconds PTT Ratio 1.7 Sodium 134 L (136-145) mmol/L Potassium 3.6 (3.5-5.1) mmol/L Chloride 93 L (98-107) mmol/L Carbon Dioxide 33 H (21-32) mmol/L Anion Gap 8 (3-11) BUN 44 H (6-23) mg/dl Creatinine 1.82 H (0.6-1.4) mg/dl Est Cr Clr Drug Dosing 47.1 ml/min Est GFR ( Amer) 40.9 ml/min Est GFR (Non-Af Amer) 35.3 ml/min BUN/Creatinine Ratio 24.2 H (10-20) Glucose 109 H (70-99(Fasting)) mg/dl Calcium 9.2 (8.5-10.1) mg/dl Phosphorus 2.5 D (2.5-4.9) mg/dl Magnesium 1.9 (1.7-2.4) mg/dl 06/28/21 Range/Units 06:39 WBC (4.8-10.8) K/uL RBC (4.7-6.1) M/uL Hgb (14.0-18.0) g/dL Hct (42-52) % MCV (80-100) fL MCH (25-34) pg MCHC (32-36) g/dL RDW Std Deviation (36.4-46.3) fL RDW Coeff of Sabrina (11.5-14.5) % Plt Count (130-400) K/uL MPV (7.4-10.4) fL PT 11.1 (9.0-12.0) Seconds INR 1.0 (0.9-1.1) APTT (21.0-31.0) Seconds PTT Ratio Sodium (136-145) mmol/L Potassium (3.5-5.1) mmol/L Chloride (98-107) mmol/L Carbon Dioxide (21-32) mmol/L Anion Gap (3-11) BUN (6-23) mg/dl Creatinine (0.6-1.4) mg/dl Est Cr Clr Drug Dosing ml/min Est GFR ( Amer) ml/min Est GFR (Non-Af Amer) ml/min BUN/Creatinine Ratio (10-20) Glucose (70-99(Fasting)) mg/dl Calcium (8.5-10.1) mg/dl Phosphorus (2.5-4.9) mg/dl Magnesium (1.7-2.4) mg/dl Medications Administered Current Inpatient Medications Acetaminophen (Acetaminophen 325 Mg Tab) 650 mg PO Q4H PRN PRN Reason: Pain or Fever Stop: 07/24/21 03:07 Aspirin (Aspirin 81 Mg Ectab) 162 mg PO DAILY [facility] Stop: 07/24/21 08:59 Last Admin: 06/27/21 08:56 Dose: 162 mg Documented by: Furosemide (Furosemide 40 Mg/4 Ml Vial) 40 mg IV TID [facility] Stop: 07/27/21 13:59 Last Admin: 06/27/21 20:35 Dose: 40 mg Documented by: Heparin Sodium (Porcine) (Heparin Sod 5,000 Unit/0.5 Ml Vial) 5,000 units SQ Q8 KARYN Stop: 07/24/21 05:59 Last Admin: 06/24/21 06:47 Dose: 5,000 units Documented by: Promethazine HCl 12.5 mg/ (Sodium Chloride) 50.5 mls @ 202 mls/hr IV Q6H PRN PRN Reason: Nausea And Vomiting Stop: 07/24/21 03:07 Heparin Sodium/Dextrose (Heparin Sodium/Dextrose) 25,000 units in 500 mls @ 30 mls/hr IV .[id number] [facility]; Protocol Stop: 07/24/21 09:59 Last Admin: 06/27/21 17:56 Dose: 1,500 units/hr, 30 mls/hr Documented by: Isosorbide Mononitrate (Isosorbide [place] Extended Rel 30 Mg Tabcr) 30 mg PO DAILY [facility] Stop: 07/28/21 08:59 Metoprolol Succinate (Metoprolol Succ 50mg Ext Rel Tab) 50 mg PO BID [facility] Stop: 07/27/21 20:59 Last Admin: 06/27/21 20:36 Dose: 50 mg Documented by: Metoprolol Tartrate (Metoprolol Tartrate 1 Mg/Ml Vial) 5 mg IV Q6 PRN; Protocol PRN Reason: Tachycardia Stop: 07/25/21 05:59 Last Admin: 06/25/21 06:09 Dose: 5 mg Documented by: Terazosin HCl (Terazosin Hcl 1 Mg Cap) 2 mg PO HS [facility] Stop: 07/24/21 20:59 Last Admin: 06/27/21 20:36 Dose: 2 mg Documented by: Tramadol HCl (Tramadol Hcl 50 Mg Tablet) 25 mg PO Q4H PRN PRN Reason: Pain Stop: 07/24/21 03:07 Warfarin Sodium (Warfarin Sod 5 Mg Tab) 5 mg PO DAILY@1600 KARYN Stop: 07/27/21 15:59 Last Admin: 06/27/21 17:56 Dose: 5 mg Documented by:
[2021-06-28 07:45] LABS: Prothrombin Time 11.1 Seconds (9.0-12.0)
[2021-06-28 08:07] LABS: BUN Creatinine Ratio 24.2 (10-20); Calcium 9.2 mg/dl (8.5-10.1); Creatinine Clr Calc Pharmacy 47.1 ml/min; Est GFR (African American) 40.9 ml/min; Est GFR (Non-African American) 35.3 ml/min; Magnesium 1.9 mg/dl (1.7-2.4); Phosphorus 2.5 mg/dl (2.5-4.9); Potassium 3.6 mmol/L (3.5-5.1)
[2021-06-28] MEDS: ASPIRIN 81 MG ECTAB PO SCH (08:37)
[2021-06-28] MEDS: ISOSORBIDE MONO EXTENDED REL 30 MG TABCR PO SCH (08:37)
[2021-06-28] MEDS: METOPROLOL SUCC 50MG EXT REL TAB PO SCH ×2 (08:38→20:14)
[2021-06-28] MEDS: FUROSEMIDE 40 MG/4 ML VIAL IV SCH ×3 (08:38→20:13)
[2021-06-28 09:48] LABS: Partial Thromboplastin Ratio 1.7
[2021-06-28 10:01] LABS: Partial Thromboplastin Time 47.1 Seconds (21.0-31.0)
[2021-06-28] MEDS: HEPARIN SODIUM/DEXTROSE 25,000 UNITS/500 ML BAG IV SCH (10:46)
--- NOTE | 2021-06-28 11:41 | Cardiology Progress Note ---
Date of Service June 28, 2021 Assessment & Plan (1) Paroxysmal atrial fibrillation with RVR: (2) Acute respiratory failure with hypoxia: (3) Acute diastolic (congestive) heart failure: (4) Non-ST elevation (NSTEMI) myocardial infarction: (5) Acute on chronic renal failure: Plan: 76-year-old male with acute on chronic diastolic heart failure, mixed etiology respiratory failure complicated by atrial fibrillation. Patient with very slow diuresis but renal function remaining stable. Continue metoprolol succinate 50 mg twice per day for heart rate control may ultimately need to increase Increase IV furosemide to 60 mg 3 times daily recommend strict I's and O's and daily weights Recommend CHF instructions for patient Will require long-term anticoagulation. Warfarin would be optimal given fluctuating renal function but if not cost prohibitive could consider cautious use of apixaban with dosing choice depending on renal function Admission and Anticipated Discharge Date Admission Date: June 24, 2021 Subjective Patient seen and examined, chart, medications, telemetry reviewed. No arrhythmias overnight. Renal function has been stable. Tolerated increase in diuretic dosing still with abdominal girth increase in lower extremity edema. Remains in atrial fibrillation but rates trending towards better control Nocturnal oximetry demonstrated hypoxia overnight Physical Exam Constitutional: well nourished and + obese Eyes: PERRL, conjunctivae normal, anicteric sclerae Neck: trachea midline, no thyromegaly + thick neck Respiratory: no respiratory distress, no labored breathing and no retractions Auscultation: + rales (Left base and mid lung field); no rhonchi and no wheezes Cardiovascular: Rate/Rhythm: + irregularly irregular Heart Sounds: normal S1 and normal S2; no murmur Vessels: radial pulses present; no JVD (Difficult to assess due to body habitus) and no carotid bruit Extremities: + edema (2+ bilateral pedal and ankle edema) Gastrointestinal (Abdomen): Inspection/Auscultation: + abdomen distended and normal bowel sounds; no abdominal edema Percussion/Palpation: abdomen soft; abdomen nontender, no guarding and abdomen not rigid Neurologic: CN's II-XI intact bilaterally and moves all extremities; no focal motor deficits Results & Data ([facility]) Vital Signs (Past 12 Hours) Vital Signs Temp Pulse Pulse Pulse Resp BP Pulse Ox 06/28/21 07:50 37.3 C 95 H 20 104/69 91 06/28/21 02:23 77 06/28/21 00:40 91 H Pulse Ox 06/28/21 07:50 06/28/21 02:23 90 06/28/21 00:40 Laboratory Results Laboratory Results - last 24 hr 06/28/21 06/28/21 06/28/21 06:39 06:39 06:39 WBC 7.90 RBC 4.56 L Hgb 12.4 L Hct 38.1 L MCV 83.6 MCH 27.2 MCHC 32.5 RDW Std Deviation 44.6 RDW Coeff of Sabrina 14.6 H Plt Count 165 MPV 12.3 H PT 11.1 INR 1.0 APTT PTT Ratio Sodium 134 L Potassium 3.6 Chloride 93 L Carbon Dioxide 33 H Anion Gap 8 BUN 44 H Creatinine 1.82 H Est Cr Clr Drug Dosing 47.1 Est GFR ( Amer) 40.9 Est GFR (Non-Af Amer) 35.3 BUN/Creatinine Ratio 24.2 H Glucose 109 H Calcium 9.2 Phosphorus 2.5 D Magnesium 1.9 06/28/21 06:39 WBC RBC Hgb Hct MCV MCH MCHC RDW Std Deviation RDW Coeff of Sabrina Plt Count MPV PT INR APTT 47.1 H* PTT Ratio 1.7 Sodium Potassium Chloride Carbon Dioxide Anion Gap BUN Creatinine Est Cr Clr Drug Dosing Est GFR ( Amer) Est GFR (Non-Af Amer) BUN/Creatinine Ratio Glucose Calcium Phosphorus Magnesium Medications Administered Current Medications Acetaminophen (Acetaminophen 325 Mg Tab) 650 mg PO Q4H PRN PRN Reason: Pain or Fever Stop: 07/24/21 03:07 Aspirin (Aspirin 81 Mg Ectab) 162 mg PO DAILY [facility] Stop: 07/24/21 08:59 Last Admin: 06/28/21 08:37 Dose: 162 mg Documented by: Furosemide (Furosemide 40 Mg/4 Ml Vial) 60 mg IV TID [facility] Stop: 07/28/21 13:59 Heparin Sodium (Porcine) (Heparin Sod 5,000 Unit/0.5 Ml Vial) 5,000 units SQ Q8 KARYN Stop: 07/24/21 05:59 Last Admin: 06/24/21 06:47 Dose: 5,000 units Documented by: Promethazine HCl 12.5 mg/ (Sodium Chloride) 50.5 mls @ 202 mls/hr IV Q6H PRN PRN Reason: Nausea And Vomiting Stop: 07/24/21 03:07 Heparin Sodium/Dextrose (Heparin Sodium/Dextrose) 25,000 units in 500 mls @ 30 mls/hr IV .[id number] [facility]; Protocol Stop: 07/24/21 09:59 Last Admin: 06/28/21 10:46 Dose: 1,500 units/hr, 30 mls/hr Documented by: Isosorbide Mononitrate (Isosorbide [place] Extended Rel 30 Mg Tabcr) 30 mg PO DAILY [facility] Stop: 07/28/21 08:59 Last Admin: 06/28/21 08:37 Dose: 30 mg Documented by: Metoprolol Succinate (Metoprolol Succ 50mg Ext Rel Tab) 50 mg PO BID [facility] Stop: 07/27/21 20:59 Last Admin: 06/28/21 08:38 Dose: 50 mg Documented by: Metoprolol Tartrate (Metoprolol Tartrate 1 Mg/Ml Vial) 5 mg IV Q6 PRN; Protocol PRN Reason: Tachycardia Stop: 07/25/21 05:59 Last Admin: 06/25/21 06:09 Dose: 5 mg Documented by: Terazosin HCl (Terazosin Hcl 1 Mg Cap) 2 mg PO HS [facility] Stop: 07/24/21 20:59 Last Admin: 06/27/21 20:36 Dose: 2 mg Documented by: Tramadol HCl (Tramadol Hcl 50 Mg Tablet) 25 mg PO Q4H PRN PRN Reason: Pain Stop: 07/24/21 03:07 Warfarin Sodium (Warfarin Sod 5 Mg Tab) 5 mg PO DAILY@1600 [facility] Stop: 07/27/21 15:59 Last Admin: 06/27/21 17:56 Dose: 5 mg Documented by:
[2021-06-28] MEDS: WARFARIN SOD 5 MG TAB PO SCH (17:07)
[2021-06-28] MEDS ORDERED: POTASSIUM CHLORIDE CRTAB 20 MEQ TABCR PO STA (19:50)
[2021-06-28] MEDS: TERAZOSIN HCL 1 MG CAP PO SCH (20:14)
[2021-06-29] MEDS: HEPARIN SODIUM/DEXTROSE 25,000 UNITS/500 ML BAG IV SCH ×2 (03:10→19:55)
[2021-06-29 06:55] LABS: Hematocrit (blood only) 38.6 % (42-52); Hemoglobin 12.6 g/dL (14.0-18.0); Mean Corpuscular Hemoglobin 27.2 pg (25-34); Mean Corpuscular Hgb Conc 32.6 g/dL (32-36); Mean Corpuscular Volume 83.2 fL (80-100); Mean Platelet Volume 12.1 fL (7.4-10.4); Platelet Count 174 K/uL (130-400); RDW Coefficient of Variation 14.8 % (11.5-14.5); RDW Standard Deviation 45.2 fL (36.4-46.3); Red Blood Count 4.64 M/uL (4.7-6.1); White Blood Count 8.77 K/uL (4.8-10.8)
[2021-06-29 07:19] LABS: BUN Creatinine Ratio 22.9 (10-20); Calcium 9.4 mg/dl (8.5-10.1); Creatinine Clr Calc Pharmacy 42.6 ml/min; Est GFR (African American) 36.3 ml/min; Est GFR (Non-African American) 31.3 ml/min; Magnesium 1.9 mg/dl (1.7-2.4); Phosphorus 2.9 mg/dl (2.5-4.9); Potassium 3.4 mmol/L (3.5-5.1)
[2021-06-29 07:27] LABS: INR 1.1 (0.9-1.1); Partial Thromboplastin Ratio 1.8; Prothrombin Time 11.8 Seconds (9.0-12.0)
[2021-06-29 07:33] LABS: Partial Thromboplastin Time 50.6 Seconds (21.0-31.0)
[2021-06-29] MEDS ORDERED: POTASSIUM CHLORIDE CRTAB 20 MEQ TABCR PO STA (08:27)
--- NOTE | 2021-06-29 08:30 | Hospitalist Progress Note ---
Date of Service June 29, 2021 Assessment & Plan (1) Hypoxia: Plan: Multifactorial : Chronic cough symptoms rule out aspiration, speech eval Supplemental O2 neb treatment ordered on admission Aspiration precautions, swallow eval Acute diastolic HF NSTEMI Troponin elevation - initially believed to be in the setting of kidney dysfunction and elevated blood pressure No angina hx CAD status post PTCA Cardiology consult Re: Troponin elevation, history CAD Echo obtained -EF 50 to 55%. Hypokinesis of the mid and apical anterior wall. Aortic valve sclerosis mild, without significant aortic valvular stenosis. There is mild mitral regurg. Grade 1 diastolic dysfunction. Pt started on IV heparin by cardiology Cont. ASA History of statin intolerance. Transition atenolol to metoprolol tartrate -> now switched to succinate 50 mg bid Patient would be high risk for cardiac catheterization due to acute renal insufficiency. Continue conservative medical management at this time. lasix IV 60 TID - now hold, assess AM Afib w/ rvr pt started on iv amiodarone now stopped and metoprolol increased to 50 mg bid pt cont. to be in Afib rate controlled on IV heparin, started warfarin CT chest obtained to r/o pna IMPRESSION: 1. Minimal left basilar atelectasis. 2. There is no acute chest disease on these noncontrast images. 3. Cardiomegaly with extensive coronary artery calcification. 4. Very mild pericardial thickening/fluid. 5. A small hiatal hernia. 6. Evidence for ventral abdominal wall hernia. Hypertension, stable Hyperlipidemia, statin intolerance Parkinsonism, ambulatory dysfunction Nocturnal hypoxia -Study obtained for nocturnal hypoxia, plan to discharge with night oxygen Difficulty swallowing swallow study eval today (06/29) Hyperglycemia rule out DM hemoglobin A1c 6.9% NGHIA Baseline UA, recheck renal function Hold losartan for now Renal ultrasound and Nephrology consultation if with worsening kidney dysfunction PT OT eval once medically stable DVT prophylaxis. now on IV Heparin, coumadin started DNR Patient's , Ms. Marcia Sigala, contact #[phone]. Admission and Anticipated Discharge Date Admission Date: June 24, 2021 Subjective Patient seen in a follow-up of hypoxia, CHF, NSTEMI, NGHIA, A. fib with RVR Currently patient is sitting up in a chair, in no acute distress Denies any chest pain, increased shortness of breath, palpitations, abdominal pain nausea or vomiting. c/w IV heparin Reports difficulty swallowing, plan for swallow eval today Review of Systems Review of Systems: All systems reviewed & are unremarkable except as noted in Subjective Physical Exam Physical Exam: GENERAL: obese M, in NAD HEENT: NC/AT, partial alopecia, EOMI, PERRL, on RA NECK : Supple, short neck, no tenderness CHEST : CTAB, no wheezing HEART : RRR, no obvious murmurs ABDOMEN: Some distention, nontender EXTREMITIES : 1+ bilateral LE swelling (chronic as per patient), no LE tenderness NEUROLOGIC : awake and alert, answering questions appropriately, no facial asymmetry, resting RUE tremors, gait and stance not assessed SKIN: Normal color, warm Results & Data Results & Data ([facility]) Vital Signs (Past 12 Hours) Vital Signs Temp Pulse Pulse Resp BP Pulse Ox 06/29/21 07:54 36.8 C 80 16 98/64 L 94 06/29/21 07:25 83 06/29/21 03:04 36.7 C 80 16 101/65 94 06/29/21 00:02 36.8 C 89 18 133/71 93 06/28/21 22:59 98 H Laboratory Results 06/29/21 06/29/21 06/29/21 Range/Units 06:19 06:19 06:19 WBC 8.77 (4.8-10.8) K/uL RBC 4.64 L (4.7-6.1) M/uL Hgb 12.6 L (14.0-18.0) g/dL Hct 38.6 L (42-52) % MCV 83.2 (80-100) fL MCH 27.2 (25-34) pg MCHC 32.6 (32-36) g/dL RDW Std Deviation 45.2 (36.4-46.3) fL RDW Coeff of Sabrina 14.8 H (11.5-14.5) % Plt Count 174 (130-400) K/uL MPV 12.1 H (7.4-10.4) fL PT 11.8 (9.0-12.0) Seconds INR 1.1 (0.9-1.1) APTT 50.6 H* (21.0-31.0) Seconds PTT Ratio 1.8 Sodium 135 L (136-145) mmol/L Potassium 3.4 L (3.5-5.1) mmol/L Chloride 93 L (98-107) mmol/L Carbon Dioxide 32 (21-32) mmol/L Anion Gap 10 (3-11) BUN 46 H (6-23) mg/dl Creatinine 2.01 H (0.6-1.4) mg/dl Est Cr Clr Drug Dosing 42.6 ml/min Est GFR ( Amer) 36.3 ml/min Est GFR (Non-Af Amer) 31.3 ml/min BUN/Creatinine Ratio 22.9 H (10-20) Glucose 120 H (70-99(Fasting)) mg/dl Calcium 9.4 (8.5-10.1) mg/dl Phosphorus 2.9 (2.5-4.9) mg/dl Magnesium 1.9 (1.7-2.4) mg/dl 06/28/21 Range/Units 06:39 WBC (4.8-10.8) K/uL RBC (4.7-6.1) M/uL Hgb (14.0-18.0) g/dL Hct (42-52) % MCV (80-100) fL MCH (25-34) pg MCHC (32-36) g/dL RDW Std Deviation (36.4-46.3) fL RDW Coeff of Sabrina (11.5-14.5) % Plt Count (130-400) K/uL MPV (7.4-10.4) fL PT (9.0-12.0) Seconds INR (0.9-1.1) APTT 47.1 H* (21.0-31.0) Seconds PTT Ratio 1.7 Sodium (136-145) mmol/L Potassium (3.5-5.1) mmol/L Chloride (98-107) mmol/L Carbon Dioxide (21-32) mmol/L Anion Gap (3-11) BUN (6-23) mg/dl Creatinine (0.6-1.4) mg/dl Est Cr Clr Drug Dosing ml/min Est GFR ( Amer) ml/min Est GFR (Non-Af Amer) ml/min BUN/Creatinine Ratio (10-20) Glucose (70-99(Fasting)) mg/dl Calcium (8.5-10.1) mg/dl Phosphorus (2.5-4.9) mg/dl Magnesium (1.7-2.4) mg/dl Medications Administered Current Inpatient Medications Acetaminophen (Acetaminophen 325 Mg Tab) 650 mg PO Q4H PRN PRN Reason: Pain or Fever Stop: 07/24/21 03:07 Aspirin (Aspirin 81 Mg Ectab) 162 mg PO DAILY [facility] Stop: 07/24/21 08:59 Last Admin: 06/28/21 08:37 Dose: 162 mg Documented by: Furosemide (Furosemide 40 Mg/4 Ml Vial) 60 mg IV TID [facility] Stop: 07/28/21 13:59 Last Admin: 06/28/21 20:13 Dose: 60 mg Documented by: Heparin Sodium (Porcine) (Heparin Sod 5,000 Unit/0.5 Ml Vial) 5,000 units SQ Q8 KARYN Stop: 07/24/21 05:59 Last Admin: 06/24/21 06:47 Dose: 5,000 units Documented by: Promethazine HCl 12.5 mg/ (Sodium Chloride) 50.5 mls @ 202 mls/hr IV Q6H PRN PRN Reason: Nausea And Vomiting Stop: 07/24/21 03:07 Heparin Sodium/Dextrose (Heparin Sodium/Dextrose) 25,000 units in 500 mls @ 30 mls/hr IV .[id number] [facility]; Protocol Stop: 07/24/21 09:59 Last Admin: 06/29/21 03:10 Dose: 1,500 units/hr, 30 mls/hr Documented by: Isosorbide Mononitrate (Isosorbide [place] Extended Rel 30 Mg Tabcr) 30 mg PO DAILY [facility] Stop: 07/28/21 08:59 Last Admin: 06/28/21 08:37 Dose: 30 mg Documented by: Metoprolol Succinate (Metoprolol Succ 50mg Ext Rel Tab) 50 mg PO BID [facility] Stop: 07/27/21 20:59 Last Admin: 06/28/21 20:14 Dose: 50 mg Documented by: Metoprolol Tartrate (Metoprolol Tartrate 1 Mg/Ml Vial) 5 mg IV Q6 PRN; Protocol PRN Reason: Tachycardia Stop: 07/25/21 05:59 Last Admin: 06/25/21 06:09 Dose: 5 mg Documented by: Potassium Chloride (Potassium Chloride Crtab 20 Meq Tabcr) 40 meq PO NOW STA Stop: 06/29/21 08:28 Terazosin HCl (Terazosin Hcl 1 Mg Cap) 2 mg PO HS [facility] Stop: 07/24/21 20:59 Last Admin: 06/28/21 20:14 Dose: 2 mg Documented by: Tramadol HCl (Tramadol Hcl 50 Mg Tablet) 25 mg PO Q4H PRN PRN Reason: Pain Stop: 07/24/21 03:07 Warfarin Sodium (Warfarin Sod 5 Mg Tab) 5 mg PO DAILY@1600 [facility] Stop: 07/27/21 15:59 Last Admin: 06/28/21 17:07 Dose: 5 mg Documented by:
[2021-06-29] MEDS: ASPIRIN 81 MG ECTAB PO SCH (08:34)
[2021-06-29] MEDS: ISOSORBIDE MONO EXTENDED REL 30 MG TABCR PO SCH (08:35)
[2021-06-29] MEDS: FUROSEMIDE 40 MG/4 ML VIAL IV SCH (08:35)
[2021-06-29] MEDS: METOPROLOL SUCC 50MG EXT REL TAB PO SCH ×2 (08:35→20:01)
--- NOTE | 2021-06-29 12:55 | Fluoroscopy Report ---
DOUBLE CONTRAST BARIUM ESOPHAGRAM CLINICAL HISTORY: Dysphagia. Esophageal dysfunction. COMPARISON STUDY: No priors. TECHNIQUE: A standard air contrast barium esophagram is performed. Multiple spot images of the esopha alli are acquired in the upright position. The patient was unable to lie prone. FINDINGS: The patient swallowed barium and the barium pill without difficulty. The mucosal pattern is normal. There is mild esophageal dysmotility. There is no evidence of intrinsic or extrinsic mass le stephany. No aspiration was seen. The gastroesophageal junction distended normally. No gastroesophageal reflux could be elicited by having the patient perform the Valsalva maneuver. Fluoroscopy time: 1.0 minutes. Fluoroscopic images: 11 spot images and 2 cine loops IMPRESSION: Mild esophageal dysmotility. Otherwise normal barium esophagram. ACT 112: Negative or not required by law. Electronically signed by: Gomez Gómez M.D. 06/29/2021 12:53 PM
--- NOTE | 2021-06-29 16:46 | Cardiology Progress Note ---
Date of Service June 29, 2021 Assessment & Plan (1) Paroxysmal atrial fibrillation with RVR: (2) Acute respiratory failure with hypoxia: (3) Acute diastolic (congestive) heart failure: (4) Non-ST elevation (NSTEMI) myocardial infarction: (5) Acute on chronic renal failure: Plan: Hold intravenous Lasix today. Repeat basic metabolic panel in a.m. with plans to restart diuretic therapy if renal function remains stable. Continue IV heparin as bridge to Coumadin. All questions answered to patient satisfaction. Admission and Anticipated Discharge Date Admission Date: June 24, 2021 Subjective Patient seen examined the bedside. Offers no complaints. and son are present today. voices concern regarding multiple medical issues. Patient denies chest pain or shortness of breath. Remains in atrial fibrillation on telemetry with an average heart rate of 90 bpm. No lightheadedness, dizziness, syncope, or near syncope. Fluid balance negative more than 1 L with titration of Lasix to 60 mg 3 times daily. Creatinine trending upward as well Review of Systems Review of Systems: All systems reviewed & are unremarkable except as noted in Subjective Physical Exam Constitutional: well developed, well nourished, + ill appearing and + obese Respiratory: no respiratory distress, no labored breathing and no retractions Auscultation: + rales (Left base and mid lung field); no rhonchi and no wheezes Cardiovascular: Rate/Rhythm: regular rate and regular rhythm Heart Sounds: normal S1 and normal S2; no murmur Vessels: radial pulses present; no JVD (Difficult to assess due to body habitus) and no carotid bruit Extremities: + edema (1+ bilateral pedal and ankle edema) Gastrointestinal (Abdomen): Inspection/Auscultation: + abdomen distended and normal bowel sounds; no abdominal edema Percussion/Palpation: abdomen soft; abdomen nontender, no guarding and abdomen not rigid Neurologic: CN's II-XI intact bilaterally and moves all extremities; no focal motor deficits Results & Data ([facility]) Vital Signs (Past 12 Hours) Vital Signs Temp Pulse Pulse Resp BP Pulse Ox 06/29/21 15:55 37.5 C 93 H 16 102/66 94 06/29/21 11:52 36.5 C 102 H 16 122/82 96 06/29/21 08:30 117/63 06/29/21 07:54 36.8 C 80 16 98/64 L 94 06/29/21 07:25 83
[2021-06-29] MEDS: WARFARIN SOD 5 MG TAB PO SCH (17:14)
[2021-06-29] MEDS: TERAZOSIN HCL 1 MG CAP PO SCH (20:01)
[2021-06-29] MEDS: MELATONIN 3 MG TAB PO PRN (23:54)
[2021-06-30 07:20] LABS: INR 1.3 (0.9-1.1); Prothrombin Time 13.5 Seconds (9.0-12.0)
[2021-06-30 07:28] LABS: BUN Creatinine Ratio 26.2 (10-20); Calcium 9.6 mg/dl (8.5-10.1); Est GFR (African American) 45.1 ml/min; Est GFR (Non-African American) 38.9 ml/min; Magnesium 1.9 mg/dl (1.7-2.4); Potassium 3.6 mmol/L (3.5-5.1)
[2021-06-30] MEDS: ISOSORBIDE MONO EXTENDED REL 30 MG TABCR PO SCH (08:15)
[2021-06-30] MEDS: ASPIRIN 81 MG ECTAB PO SCH (08:15)
[2021-06-30] MEDS: METOPROLOL SUCC 25MG EXT REL TAB PO SCH ×2 (08:15→20:04)
[2021-06-30 08:18] LABS: Partial Thromboplastin Ratio 2.1
[2021-06-30 08:26] LABS: Partial Thromboplastin Time 58.3 Seconds (21.0-31.0)
[2021-06-30] MEDS: POTASSIUM CHLORIDE CRTAB 20 MEQ TABCR PO SCH ×2 (09:37→20:04)
[2021-06-30] MEDS: FUROSEMIDE 40 MG/4 ML VIAL IV SCH ×2 (09:38→20:03)
[2021-06-30] MEDS: MAGNESIUM OXIDE 400 MG TAB PO SCH ×2 (09:38→20:03)
--- NOTE | 2021-06-30 10:39 | Cardiology Progress Note ---
Date of Service June 30, 2021 Assessment & Plan (1) Acute diastolic (congestive) heart failure: (2) Paroxysmal atrial fibrillation with RVR: (3) Acute respiratory failure with hypoxia: (4) Non-ST elevation (NSTEMI) myocardial infarction: (5) Acute on chronic renal failure: Plan: Serum creatinine trending downward. Restart IV Lasix, 60 mg twice daily. Likely transition to torsemide 20 mg twice daily at discharge with close cardiology/heart failure clinic follow-up. Titrate Toprol-XL to 75 mg twice daily. Continue IV heparin as bridge to Coumadin. Titrate Coumadin to 7.5 mg daily. Outpatient follow-up with the [facility] anticoagulation clinic. All questions answered to patient satisfaction. Admission and Anticipated Discharge Date Admission Date: June 24, 2021 Subjective Patient seen and examined the bedside. Feeling better today. Telemetry reveals atrial fibrillation with heart rate in the 90s. No palpitations, light headedness, dizziness. Denies chest pain or shortness of breath. Lower extremity edema unchanged. Creatinine trending downward. Patient adamant he is leaving hospital tomorrow. Review of Systems Review of Systems: All systems reviewed & are unremarkable except as noted in Subjective Physical Exam Constitutional: well developed, well nourished, + ill appearing and + obese Respiratory: no respiratory distress, no labored breathing and no retractions Auscultation: + rales (Left base and mid lung field); no rhonchi and no wheezes Cardiovascular: Rate/Rhythm: regular rate and regular rhythm Heart Sounds: normal S1 and normal S2; no murmur Vessels: radial pulses present; no JVD (Difficult to assess due to body habitus) and no carotid bruit Extremities: + edema (1+ bilateral pedal and ankle edema) Gastrointestinal (Abdomen): Inspection/Auscultation: + abdomen distended and normal bowel sounds; no abdominal edema Percussion/Palpation: abdomen soft; abdomen nontender, no guarding and abdomen not rigid Neurologic: CN's II-XI intact bilaterally and moves all extremities; no focal motor deficits Results & Data ([facility]) Vital Signs (Past 12 Hours) Vital Signs Temp Pulse Pulse Resp BP Pulse Ox 06/30/21 07:56 36.6 C 81 20 154/86 H 93 06/30/21 07:16 84 06/30/21 03:09 36.4 C L 97 H 18 151/88 H 95 06/29/21 23:30 37.2 C 100 H 20 150/82 H 96
[2021-06-30] MEDS: HEPARIN SODIUM/DEXTROSE 25,000 UNITS/500 ML BAG IV SCH (10:46)
--- NOTE | 2021-06-30 15:49 | Hospitalist Progress Note ---
Date of Service June 30, 2021 Assessment & Plan (1) Hypoxia: Plan: Mr Poncho Sigala is a 76 year old man with history of chronic diastolic CHF, CKD stage 3, CAD was admitted 06/24 for weakness found to have acute on chronic diastolic CHF, later developed A fib with RVR and NGHIA. Acute on chronic diastolic CHF NSTEMI -Currently on heparin drip, metoprolol 75mg BID -lasix 60mg IV BID resumed today -further management per Cardiology New onset A fib with RVR -was on amiodarone drip, now discontinued. Currently on metoprolol 75mg BID -heparin to coumadin bridge -INR 1.3 today -TSH wnl Nocturnal hypoxia -Study obtained for nocturnal hypoxia, plan to discharge with night oxygen NGHIA on CKD stage 3 UA negative Hold losartan for now Cr now back to baseline Dysphagia -Barium swallow shows mild esophageal dysmotility -known small hiatal hernia -would benefit from CULINARY ARTIST at discharge for diet modifications Chronic issues Hypertension, stable Hyperlipidemia, statin intolerance Parkinsonism, ambulatory dysfunction Disposition -Patient from home, he feels he is at baseline. Declines PT eval and requests to return home at discharge Admission and Anticipated Discharge Date Admission Date: June 24, 2021 Subjective Feels well. Denies changes to his leg swelling or abdominal girth "My legs and feet have been this way since the day I was born!" "I've had enough of being here, I've had enough of this (IV). I'm going home tomorrow" Physical Exam Physical Exam: No acute distress, sitting in chair Respiratory: breathing comfortably on room air, no wheezing/rhonchi/rales Cardiovascular: Irregular but not rapid, no murmurs/rubs/gallops Gastrointestinal (Abdomen): obese, non tender Musculoskeletal: non pitting edema Skin: skin is tight, shiny (patient reports this is chronic) Neurologic: awake, alert, spontaneously moving extremities Results & Data Results & Data ([facility]) Vital Signs (Past 12 Hours) Vital Signs Temp Pulse Pulse Resp BP Pulse Ox 06/30/21 14:48 88 06/30/21 11:13 37 C 82 18 155/66 H 95 06/30/21 07:56 36.6 C 81 20 154/86 H 93 06/30/21 07:16 84 Laboratory Results [facility] 06/30/21 06:15 Sodium 136 Potassium 3.6 Chloride 95 L Carbon Dioxide 33 H BUN 44 H Creatinine 1.68 H D Glucose 120 H Calcium 9.6 Medications Administered Current Inpatient Medications Acetaminophen (Acetaminophen 325 Mg Tab) 650 mg PO Q4H PRN PRN Reason: Pain or Fever Stop: 07/24/21 03:07 Aspirin (Aspirin 81 Mg Ectab) 162 mg PO DAILY [facility] Stop: 07/24/21 08:59 Last Admin: 06/30/21 08:15 Dose: 162 mg Documented by: Furosemide (Furosemide 40 Mg/4 Ml Vial) 60 mg IV BID [facility] Stop: 07/30/21 08:59 Last Admin: 06/30/21 09:38 Dose: 60 mg Documented by: Heparin Sodium (Porcine) (Heparin Sod 5,000 Unit/0.5 Ml Vial) 5,000 units SQ Q8 [facility] Stop: 07/24/21 05:59 Last Admin: 06/24/21 06:47 Dose: 5,000 units Documented by: Promethazine HCl 12.5 mg/ (Sodium Chloride) 50.5 mls @ 202 mls/hr IV Q6H PRN PRN Reason: Nausea And Vomiting Stop: 07/24/21 03:07 Heparin Sodium/Dextrose (Heparin Sodium/Dextrose) 25,000 units in 500 mls @ 30 mls/hr IV .[id number] [facility]; Protocol Stop: 07/24/21 09:59 Last Admin: 06/30/21 10:46 Dose: 1,500 units/hr, 30 mls/hr Documented by: Isosorbide Mononitrate (Isosorbide [place] Extended Rel 30 Mg Tabcr) 30 mg PO DAILY [facility] Stop: 07/28/21 08:59 Last Admin: 06/30/21 08:15 Dose: 30 mg Documented by: Magnesium Oxide (Magnesium Oxide 400 Mg Tab) 400 mg PO BID [facility] Stop: 07/30/21 08:59 Last Admin: 06/30/21 09:38 Dose: 400 mg Documented by: Melatonin (Melatonin 3 Mg Tab) 3 mg PO HS PRN PRN Reason: Sleep Stop: 07/29/21 23:34 Last Admin: 06/29/21 23:54 Dose: 3 mg Documented by: Metoprolol Succinate (Metoprolol Succ 25mg Ext Rel Tab) 75 mg PO BID [facility] Stop: 07/30/21 08:59 Last Admin: 06/30/21 08:15 Dose: 75 mg Documented by: Metoprolol Tartrate (Metoprolol Tartrate 1 Mg/Ml Vial) 5 mg IV Q6 PRN; Protocol PRN Reason: Tachycardia Stop: 07/25/21 05:59 Last Admin: 06/25/21 06:09 Dose: 5 mg Documented by: Potassium Chloride (Potassium Chloride Crtab 20 Meq Tabcr) 40 meq PO BID [facility] Stop: 07/30/21 08:59 Last Admin: 06/30/21 09:37 Dose: 40 meq Documented by: Terazosin HCl (Terazosin Hcl 1 Mg Cap) 2 mg PO HS [facility] Stop: 07/24/21 20:59 Last Admin: 06/29/21 20:01 Dose: 2 mg Documented by: Tramadol HCl (Tramadol Hcl 50 Mg Tablet) 25 mg PO Q4H PRN PRN Reason: Pain Stop: 07/24/21 03:07 Warfarin Sodium (Warfarin Sod 7.5 Mg Tab) 7.5 mg PO DAILY@1600 [facility] Stop: 07/30/21 15:59 Last Admin: 06/30/21 15:43 Dose: 7.5 mg Documented by:
[2021-06-30] MEDS ORDERED: WARFARIN SOD 7.5 MG TAB PO SCH (16:00)
[2021-06-30] MEDS: TERAZOSIN HCL 1 MG CAP PO SCH (20:05)
[2021-06-30] MEDS: MELATONIN 3 MG TAB PO PRN (21:24)
[2021-07-01] MEDS: HEPARIN SODIUM/DEXTROSE 25,000 UNITS/500 ML BAG IV SCH (04:08)
[2021-07-01 06:24] LABS: INR 1.6 (0.9-1.1); Prothrombin Time 16.7 Seconds (9.0-12.0)
[2021-07-01 06:40] LABS: BUN Creatinine Ratio 23.6 (10-20); Calcium 9.7 mg/dl (8.5-10.1); Creatinine Clr Calc Pharmacy 44.8 ml/min; Est GFR (African American) 38.6 ml/min; Est GFR (Non-African American) 33.3 ml/min; Magnesium 2.1 mg/dl (1.7-2.4); Potassium 4.2 mmol/L (3.5-5.1)
[2021-07-01 06:45] LABS: Partial Thromboplastin Ratio 2.4
[2021-07-01 06:47] LABS: Partial Thromboplastin Time 66.5 Seconds (21.0-31.0)
[2021-07-01] MEDS: MAGNESIUM OXIDE 400 MG TAB PO SCH (08:11)
[2021-07-01] MEDS: METOPROLOL SUCC 25MG EXT REL TAB PO SCH (08:11)
[2021-07-01] MEDS: POTASSIUM CHLORIDE CRTAB 20 MEQ TABCR PO SCH (08:11)
[2021-07-01] MEDS: FUROSEMIDE 40 MG/4 ML VIAL IV SCH (08:12)
[2021-07-01] MEDS: ISOSORBIDE MONO EXTENDED REL 30 MG TABCR PO SCH (08:12)
[2021-07-01] MEDS: ASPIRIN 81 MG ECTAB PO SCH (08:12)
--- NOTE | 2021-07-01 11:20 | Cardiology Progress Note ---
Date of Service July 01, 2021 Assessment & Plan (1) Acute diastolic (congestive) heart failure: (2) Paroxysmal atrial fibrillation with RVR: (3) Acute respiratory failure with hypoxia: (4) Non-ST elevation (NSTEMI) myocardial infarction: (5) Acute on chronic renal failure: Plan: 76-year-old patient admitted with acute on chronic heart failure, renal insufficiency, and elevated troponin. Treated with intravenous Lasix during hospitalization with improvement of volume status. Serum creatinine trending upward again this morning after 2 doses of IV Lasix yesterday. Recommend transition back to torsemide 20 mg daily. Dose warfarin for goal INR of 2.0- 3.0. Close cardiology follow-up in 1 week. Recommend MTN echo (anticoagulation clinic) follow-up on Tuesday with repeat PT/INR. Toprol-XL titrated to 75 mg twice daily yesterday. Heart rate has improved. Continue this dose at discharge. All questions answered to patient satisfaction. Admission and Anticipated Discharge Date Admission Date: June 24, 2021 Subjective Patient seen examined the bedside. Denies chest pain or unusual shortness of breath. Requesting discharge. INR trending upward. Fluid balance -1.5 L. Review of Systems Review of Systems: All systems reviewed & are unremarkable except as noted in Subjective Physical Exam Constitutional: well developed, well nourished, + ill appearing and + obese Respiratory: no respiratory distress, no labored breathing and no retractions Auscultation: + rales (Left base and mid lung field); no rhonchi and no wheezes Cardiovascular: Rate/Rhythm: regular rate and regular rhythm Heart Sounds: normal S1 and normal S2; no murmur Vessels: radial pulses present; no JVD (Difficult to assess due to body habitus) and no carotid bruit Extremities: + edema (1+ bilateral pedal and ankle edema) Gastrointestinal (Abdomen): Inspection/Auscultation: + abdomen distended and normal bowel sounds; no abdominal edema Percussion/Palpation: abdomen soft; abdomen nontender, no guarding and abdomen not rigid Neurologic: CN's II-XI intact bilaterally and moves all extremities; no focal motor deficits Results & Data ([facility]) Vital Signs (Past 12 Hours) Vital Signs Temp Pulse Resp BP Pulse Ox 07/01/21 07:34 36.9 C 75 20 120/76 95 07/01/21 03:40 36.9 C 78 16 116/71 91 07/01/21 01:00 37 C 93 H 18 125/57 L 96
--- NOTE | 2021-07-01 17:31 | Discharge Summary ---
Date of Service July 01, 2021 Admission HPI Per Admitting Provider History obtained from patient, family, and records. Patient is a fair historian. Medical history significant for chronic diastolic heart failure (EF 55 to 60%, TTE 2019), CAD status post PTCA, hypertension, hyperlipidemia, CRI (baseline creatinine 1.7), Parkinsonism Last confinement June 2019 for decompensated heart failure. Patient seen at [facility] cardiology office 3 weeks ago for follow-up visit. Terazosin discontinued due to positional dizziness. Patient was trying to get out of a chair at home subsequently sliding to the ground and unable to get up. Patient denies head trauma, LOC, chest pain, SOB. Usual dry cough symptoms as per patient. Patient admits to occasional coughing with water/meal intake. Usual weakness as per . Patient noted to be hypoxemic, 89 on room air upon EMS arrival. Patient brought to the ER for evaluation. Patient given Lasix for possible CHF. Medical History as above Surgical History : None Family History : Osteoarthritis Personal/Social history : Non-smoker, occasional EtOH intake, retired postman Principal Diagnosis NSTEMI New onset A fib with RVR Acute on chronic diastolic CHF NGHIA on CKD stage 3 Mild Esophageal dysmotility Night time hypoxia, likely undiagnosed RIGO Discharge Exam Patient requesting to be discharged home. "I'm tired of this, I've had enough". Also, while here he was noted to have night time hypoxia but has declined oxygen. We discussed the possibility of him having sleep apnea and his response "I don't want to have this discussion again". Patient is optimized as much as possible. And will return home (he declines PT assessment here) and will follow up at coumadin clinic through his Peanut Picker' office. Gen- obese, no acute distress, sitting in chair CV- irregular but not rapid Pulm- breathing comfortably on room air, no wheezing/rhonchi/rales Extr- chronic non pitting edema Discharge Data Allergies Allergy/AdvReac Type Severity Reaction Status Date / Time No Known Allergies Allergy Verified 06/23/21 23:08 Consultations 06/24/21 01:23 ED Decision to Admit Stat 06/24/21 03:08 Consult Cardiology Routine Ordered Studies 06/24/21 01:43 US venous doppler LE BI Urgent 06/24/21 01:45 CT head/brain wo con Urgent 06/24/21 09:32 CT chest diagnostic wo con Urgent 06/29/21 11:00 FL barium swallow Routine Diabetes Follow up Diabetes Follow-up Needed for Newly Diagnosed Diabetes Hospital Course (1) Hypoxia: Mr Poncho Sigala is a 76 year old man with history of chronic diastolic CHF, CKD stage 3, CAD was admitted 06/24 for weakness found to have acute on chronic diastolic CHF, later developed A fib with RVR and NGHIA. Acute on chronic diastolic CHF NSTEMI -On metoprolol 75mg BID, losartan discontinued due to renal failure -Received parenteral diuresis, held briefly due to worsening NGHIA then resumed again. -discharged on torsemide 20mg daily New onset A fib with RVR -was on amiodarone drip which was later discontinued. -Rate controlled on metoprolol 75mg BID -He was started on a heparin drip and started on coumadin -INR 1.6 at discharge. Discharged on coumadin 7.5mg daily. -Next INR check in 2 days at Coumadin Clinic -TSH normal Nocturnal hypoxia -Noted to have night time hypoxia -Overnight oximetry report reveals total 20 minutes of hypoxia. -Patient declining home oxygen, declines night time oxygen while here -He would benefit from an outpatient sleep study but is not interested in that currently NGHIA on CKD stage 3 UA negative Cr monitored closely with diuresis Losartan discontinued due to NGHIA Repeat BMP in 1-2 weeks Dysphagia -Barium swallow shows mild esophageal dysmotility -known small hiatal hernia -would benefit from SLEEP MANAGER at discharge for diet modifications but patient declines PT and HH services Chronic issues Hypertension, stable Hyperlipidemia, statin intolerance Parkinsonism, ambulatory dysfunction Disposition -Patient from home, he feels he is at baseline. Declines PT eval and requests to return home at discharge Total Time Total Time Spent Total Time Spent (In Minutes): 40 Discharge Plan Discharge Items Patient Disposition: Home - Self-Care Reason For Visit: RESP FAILURE Discharge Diagnosis: NSTEMI New onset A fib with RVR Acute on chronic diastolic CHF NGHIA on CKD stage 3 Mild Esophageal dysmotility Night time hypoxia, likely undiagnosed RIGO Condition on Discharge: Fair Activity: Resume your previous activity Non-emergency contact: Primary Care Provider and [employer] Call non-emergency contact if: you have any medication questions and your symptoms worsen Follow-up/Referrals: Pedro House [Physician [employer] Housekeeper] - 07/16/21 10:30 am (Date & Time 07/16/2021 10:30 AM Provider CIARA Reddy Department Cardiology, [facility] will manage your Coumadin. They will be calling you with information. ) Everardo Ervin [Outside Practitioners] - 07/08/21 1:40 pm (Dr Ervin has retired. The physician that has replaced him is Dr Kelsi Dawn. You are scheduled with Lakshmi Morse PA-C ) Diet: Heart Healthy Fluids: 1500ml (6 cups) Addtl Attending Provider Instructions: You were managed for CHF here. Your medications were adjusted. You also had an irregular rhythm of your heart. You were started on coumadin (blood thinner). You will go home on Coumadin 7.5mg nightly. You will follow up with the Coumadin Clinic at [facility] (managed through Dr House's office), they will contact you. Your first INR check should be on Monday 07/03 Also, you were noted to have episodes of low oxygen levels while sleeping. You likely have sleep apnea and should have a sleep study, please talk to your family doctor about this. You declined to have home oxygen set up Your losartan was discontinued here due to acute kidney injury. Please follow up with you PCP for repeat BMP (blood work) in 2 weeks to see if this medicine can be restarted Pending Studies at Discharge: No Stand-Alone Forms: My [facility], Smoking Cessation Medications and DC Order Prescriptions: New warfarin [Jantoven] 7.5 mg Tablet 7.5 mg PO DAILY@1600 Qty: 30 RF: 0 isosorbide mononitrate 30 mg Tablet Extended Release 24 Hr 30 mg PO DAILY Qty: 30 RF: 1 terazosin 1 mg Capsule 2 mg PO HS Qty: 30 RF: 1 metoprolol succinate 25 mg Tablet Extended Release 24 Hr 75 mg PO BID Qty: 180 RF: 1 Continued aspirin 81 mg Tablet,Delayed Release (Dr/Ec) 162 mg PO DAILY RF: 0 torsemide 10 mg Tablet 20 mg PO QAM Qty: 60 RF: 2 Discontinued losartan 100 mg tablet 100 mg PO DAILY RF: 0 atenolol 50 mg tablet 50 mg PO DAILY RF: 0 isosorbide mononitrate 60 mg tablet extended release 24 hr 60 mg PO DAILY RF: 0 Discharge Orders: Discharge Order (Routine); Ordered 07/01/21 Ordered By: Katia Ryan/Other Patient Handouts: 5 Steps for Eating Healthier, Type 2 Diabetes Admission Data Admit Date/Time: 06/24/21 01:36 Attending Provider: Katia Collins Admit Provider: Javier Dobson Primary Care Provider: PCP,NO Other Providers: Javier Dobson ; Brenton Gagnon ; Bernard Swartz ; Ciro Clement ; Joni Dover ; Everardo Salcedo ; Pedro House ; Antonia Lott ; Mariam Ramos ; Enriqueta Brower ; Jaswant Chilel ; Juancarlos Liriano Other Interventions: Discharge Summary Assessment (RN) Last Done: 07/01/21 11:33
[2021-07-02] MEDS ORDERED: TORSEMIDE 10 MG TAB PO SCH (09:00)
== END 2021-07-01 13:20 | disposition home or self-care (01) | DRG 280 ==
LOC: ED 22:33 → 2S 06-24 01:36 → SUATTDRO 06-24 01:36 → 2S 06-24 02:24

== ENCOUNTER 2021-12-05 02:52 | Inpatient (IN) ==
--- NOTE | 2021-12-05 03:24 | Emergency Department Note ---
History of Present Illness General Chief complaint: Fall Stated complaint: FALL/WEAKNESS IN LEGS Time Seen by Provider: 12/05/21 02:56 History of Present Illness Maximum Pain Intensity: 0 76-year-old male presents to emergency department via EMS reportedly slipped out of a chair and could not get up. Patient did not hit his head. Patient states leg weakness for the past few days. Patient typically uses a cane or a walker. Patient states that his legs are stiff currently. Patient denies any back pain denies any recent trauma and hitting his head or his low back. Patient denies chest pain shortness of breath nausea vomiting. No other complaints. Patient called EMS as he could not get up after sliding out of a chair. Home Medications Medication Instructions Recorded Confirmed Type aspirin 81 mg tablet,delayed 162 mg PO DAILY 07/16/19 10/12/21 History release torsemide 10 mg tablet 20 mg PO QAM #60 tabs 07/20/19 10/12/21 Rx isosorbide mononitrate 30 mg 30 mg PO DAILY #30 tabs 07/01/21 10/12/21 Rx tablet,extended release 24 hr metoprolol succinate 25 mg 75 mg PO BID #180 tabs 07/01/21 10/12/21 Rx tablet,extended release 24 hr terazosin 1 mg capsule 2 mg PO HS #30 caps 07/01/21 10/12/21 Rx warfarin 7.5 mg tablet (Jantoven) 7.5 mg PO DAILY@1600 #30 tabs 07/01/21 Rx Allergies Allergy/AdvReac Type Severity Reaction Status Date / Time No Known Allergies Allergy Verified 10/19/21 09:48 Past Med/Surg History Medical History Atrial fibrillation CKD (chronic kidney disease) stage 3, GFR 30-59 ml/min Complication of cardiac bypass Coronary artery disease 09/1999 - PTCA to OM2 Hypertension Hypoxia Psoriasis Statin intolerance Family History Father Kidney failure Social History Smoking Status: Never smoker Tobacco Type: Smokeless Tobacco (Dip or Chew) Hx Alcohol Use: No Hx Substance Use: No Preferred Language: Bulgarian Communication Ability: Effective Visual Impairment: Partially Limited Hearing Ability: Normal 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 Beliefs That Will Affect Care: None marital status: Current Living Situation: Spouse Current Living Situation Comment: assists with dressing changes How many Children do You have: 4 Feels Safe at Home: Yes Diet Comment: Education to increase protein in diet to assist with wound healing caffeine: Yes Assistive Devices: Cane and Walker Review of Systems A total of 10 systems reviewed and were otherwise negative Constitutional: + malaise and + weakness; no fever Respiratory: no cough Cardiovascular: no chest pain Musculoskeletal: + joint pain and + stiffness; no back pain Physical Exam Vital Signs Vital Signs - 24 hr 12/05/21 03:07 Temperature 37.6 C H Temperature Source Oral Pulse Rate 86 Respiratory Rate 22 Respiratory Effort / Characteristics Spontaneous Blood Pressure 132/69 Blood Pressure Mean 90 Pulse Oximetry 89 L Oxygen Delivery Method Room Air Sepsis Recent Fever Within 48 Hours No Sepsis New/Unexplained Change in Mental Status No Sepsis Action Taken by Nursing No Action Required GENERAL: Patient is awake alert in no acute distress patient is resting comfortably and showing no signs of anxiety EYES: The conjunctivae are clear. The pupils are round and reactive. EARS, NOSE, MOUTH AND THROAT: The nose is without any evidence of any deformity. Mucous membranes are moist. Tongue is midline. NECK: The neck is nontender and supple. RESPIRATORY: Normal respiratory effort is noted there is no evidence of wheezing rhonchi or rales CARDIOVASCULAR: Regular rate and rhythm noted there no murmurs rubs or gallops normal S1 normal S2. GASTROINTESTINAL: The abdomen is soft. Abdomen is nontender. PELVIS: The Pelvis is stable. No tenderness to palpation is noted. BACK: No midline tenderness or or step-off noted range of motion in flexion extension as well as rotation no signs of muscle spasm noted MUSCULOSKELETAL/EXTREMITIES: Patient has decreased motion of the bilateral lower extremities with pitting edema present SKIN: Patient has pitting edema to the bilateral lower extremities NEUROLOGIC: Patient is awake alert and oriented x3 Medical Decision Making Medical Records Attestation: I reviewed the patient's medical records. Home Medications Current Medication List: was personally reviewed by me Laboratory Data Attestation: I reviewed the patient's lab results. Result diagrams: 12/05/21 03:22 12/05/21 03:22 Lab Results 12/05/21 12/05/21 12/05/21 Range/Units 03:10 03:22 03:22 WBC 10.52 (4.8-10.8) K/ul RBC 5.20 (4.63-6.08) M/uL Hgb 13.5 L (14.0-18.0) g/dl Hct 41.6 (40.1-51.0) % MCV 80.0 (80.0-100.0) fL MCH 26.0 (25.0-34.0) pg MCHC 32.5 (32.0-36.0) g/dL RDW Std Deviation 48.0 H (36.4-46.3) fL RDW Coeff of Sabrina 16.7 H (11.5-14.5) % Plt Count 179 (130-400) K/uL MPV 11.1 (9.4-12.4) fL Immature Gran % (Auto) 0.4 % Neut % (Auto) 82.2 % Lymph % (Auto) 6.9 % [place] % (Auto) 10.1 % Eos % (Auto) 0.1 % Baso % (Auto) 0.3 % Neut # (Auto) 8.65 H (1.4-6.5) K/uL Lymph # (Auto) 0.73 L (1.2-3.4) K/uL [place] # (Auto) 1.06 H (0.24-0.82) K/uL Eos # (Auto) 0.01 (0-0.50) K/uL Baso # (Auto) 0.03 (0-0.2) K/uL Immature Gran # (Auto) 0.04 H (0.00-0.02) K/uL PT (9.0-12.0) Seconds INR (0.9-1.1) APTT (21.0-31.0) Seconds PTT Ratio Sodium 138 (136-145) mmol/L Potassium 4.0 (3.5-5.1) mmol/L Chloride 100 (98-107) mmol/L Carbon Dioxide 32 (21-32) mmol/L Anion Gap 6 (3-11) BUN 37 H (6-23) mg/dl Creatinine 2.09 H (0.6-1.4) mg/dl Est Cr Clr Drug Dosing 41.2 ml/min Est GFR ( Amer) 34.6 ml/min Est GFR (Non-Af Amer) 29.9 ml/min BUN/Creatinine Ratio 17.7 (10-20) Glucose 123 H (70-99(Fasting)) mg/dl Lactate (0.4-2.0) mmol/L Calcium 9.2 (8.5-10.1) mg/dl Magnesium 2.0 (1.7-2.4) mg/dl Total Bilirubin 0.4 (0.2-1.0) mg/dl Direct Bilirubin 0.2 (0-0.2) mg/dl AST 31 (13-39) U/L ALT 21 (7-52) U/L Alkaline Phosphatase 98 (34-104) U/L Troponin I High Sens 206.6 H* (0-20) pg/ml Total Protein 7.0 (6.0-8.3) gm/dl Albumin 3.9 (3.4-5.0) gm/dl Procalcitonin (0-0.5) ng/ml SARS-CoV-2, RNA, NAAT POSITIVE A* (NEGATIVE) 12/05/21 12/05/21 12/05/21 Range/Units 03:22 03:22 03:54 WBC (4.8-10.8) K/ul RBC (4.63-6.08) M/uL Hgb (14.0-18.0) g/dl Hct (40.1-51.0) % MCV (80.0-100.0) fL MCH (25.0-34.0) pg MCHC (32.0-36.0) g/dL RDW Std Deviation (36.4-46.3) fL RDW Coeff of Sabrina (11.5-14.5) % Plt Count (130-400) K/uL MPV (9.4-12.4) fL Immature Gran % (Auto) % Neut % (Auto) % Lymph % (Auto) % [place] % (Auto) % Eos % (Auto) % Baso % (Auto) % Neut # (Auto) (1.4-6.5) K/uL Lymph # (Auto) (1.2-3.4) K/uL [place] # (Auto) (0.24-0.82) K/uL Eos # (Auto) (0-0.50) K/uL Baso # (Auto) (0-0.2) K/uL Immature Gran # (Auto) (0.00-0.02) K/uL PT 19.8 H (9.0-12.0) Seconds INR 1.9 H (0.9-1.1) APTT 32.5 H (21.0-31.0) Seconds PTT Ratio 1.2 Sodium (136-145) mmol/L Potassium (3.5-5.1) mmol/L Chloride (98-107) mmol/L Carbon Dioxide (21-32) mmol/L Anion Gap (3-11) BUN (6-23) mg/dl Creatinine (0.6-1.4) mg/dl Est Cr Clr Drug Dosing ml/min Est GFR ( Amer) ml/min Est GFR (Non-Af Amer) ml/min BUN/Creatinine Ratio (10-20) Glucose (70-99(Fasting)) mg/dl Lactate 1.6 (0.4-2.0) mmol/L Calcium (8.5-10.1) mg/dl Magnesium (1.7-2.4) mg/dl Total Bilirubin (0.2-1.0) mg/dl Direct Bilirubin (0-0.2) mg/dl AST (13-39) U/L ALT (7-52) U/L Alkaline Phosphatase (34-104) U/L Troponin I High Sens (0-20) pg/ml Total Protein (6.0-8.3) gm/dl Albumin (3.4-5.0) gm/dl Procalcitonin 0.09 (0-0.5) ng/ml SARS-CoV-2, RNA, NAAT (NEGATIVE) Imaging Data Attestation: I personally reviewed and interpreted this imaging study as follows: My Impression: Chest x-ray interpreted by me cardiomegaly ECG Data Attestation: I personally reviewed and interpreted this ECG as follows: Additional Comments: EKG interpreted by me sinus rhythm rate of 85 right bundle branch block poor R wave progression no obvious ST segment elevation or depression MDM Narrative Medical decision making differential diagnosis includes electrolyte abnormality myopathy metabolic derangement deconditioning, sepsis. Plan is to check labs, EKG Impression & Plan Weakness, COVID-19, CKD (chronic kidney disease), Elevated troponin Discharge Plan Visit Data Chief Complaint: Fall Stated Complaint: FALL/WEAKNESS IN LEGS ED Provider: Brenton Arnold Discharge Problem: Weakness, COVID-19, CKD (chronic kidney disease), Elevated troponin Patient Disposition: Being Evaluated by Hospitalist Forms Stand Alone Forms: My [facility] Prescriptions Prescriptions: No Action aspirin 81 mg Tablet,Delayed Release (Dr/Ec) 162 mg PO DAILY torsemide 10 mg Tablet 20 mg PO QAM Qty: 60 2RF warfarin [Jantoven] 7.5 mg Tablet 7.5 mg PO DAILY@1600 Qty: 30 0RF isosorbide mononitrate 30 mg Tablet Extended Release 24 Hr 30 mg PO DAILY Qty: 30 1RF terazosin 1 mg Capsule 2 mg PO HS Qty: 30 1RF metoprolol succinate 25 mg Tablet Extended Release 24 Hr 75 mg PO BID Qty: 180 1RF Referrals Referrals: PCP,NO [Primary Care Provider] -
[2021-12-05 03:43] LABS: Basophils # (auto) 0.03 K/uL (0-0.2); Basophils % (auto) 0.3 %; Eosinophils # (auto) 0.01 K/uL (0-0.50); Eosinophils % (auto) 0.1 %; Hematocrit (blood only) 41.6 % (40.1-51.0); Hemoglobin 13.5 g/dl (14.0-18.0); Immature Granulocytes # (auto) 0.04 K/uL (0.00-0.02); Immature Granulocytes % (auto) 0.4 %; Lymphocytes # (auto) 0.73 K/uL (1.2-3.4); Lymphocytes % (auto) 6.9 %; Mean Corpuscular Hgb Conc 32.5 g/dL (32.0-36.0); Mean Platelet Volume 11.1 fL (9.4-12.4); Monocytes # (auto) 1.06 K/uL (0.24-0.82); Monocytes % (auto) 10.1 %; Neutrophils # (auto) 8.65 K/uL (1.4-6.5); Neutrophils % (auto) 82.2 %; Platelet Count 179 K/uL (130-400); RDW Coefficient of Variation 16.7 % (11.5-14.5); White Blood Count 10.52 K/ul (4.8-10.8)
[2021-12-05 04:00] LABS: INR 1.9 (0.9-1.1); Partial Thromboplastin Ratio 1.2; Partial Thromboplastin Time 32.5 Seconds (21.0-31.0); Prothrombin Time 19.8 Seconds (9.0-12.0)
[2021-12-05 04:04] LABS: Albumin Level 3.9 gm/dl (3.4-5.0); BUN Creatinine Ratio 17.7 (10-20); Bilirubin Direct 0.2 mg/dl (0-0.2); Bilirubin,Total 0.4 mg/dl (0.2-1.0); Calcium 9.2 mg/dl (8.5-10.1); Creatinine Clr Calc Pharmacy 41.2 ml/min; Est GFR (African American) 34.6 ml/min; Est GFR (Non-African American) 29.9 ml/min
[2021-12-05 04:15] LABS: Troponin I High Sensitivity 206.6 pg/ml (0-20)
--- NOTE | 2021-12-05 07:43 | XRay Report ---
XR chest 1V portable HISTORY: 76 years-old Male Sepsis acute sepsis COMPARISON: Chest radiograph 06/23/2021 TECHNIQUE: Portable AP view of the chest FINDINGS: Cardiac silhouette is enlarged. No pneumothorax, or pleural effusion, airspace consolidation or overt pulmonary edema. Degenerative changes of the shoulders and spine. IMPRESSION: Cardiomegaly without acute process. ACT 112: Negative or not required by law. The above report was generated using voice recognition software. It may contain grammatical, syntax o r spelling errors. Electronically signed by: Jeovany Galan M.D. 12/05/2021 7:41 AM
[2021-12-05] MEDS ORDERED: ACETAMINOPHEN 325 MG TAB PO PRN (08:02)
[2021-12-05] MEDS: dexAMETHasone 6 MG in SYRINGE 0 ML IV SCH (10:44)
[2021-12-05] MEDS: ASPIRIN 81 MG ECTAB PO SCH (10:44)
[2021-12-05] MEDS: ISOSORBIDE MONO EXTENDED REL 30 MG TABCR PO SCH (10:44)
[2021-12-05] MEDS: METOPROLOL SUCC 25MG EXT REL TAB PO SCH ×2 (10:44→19:54)
--- NOTE | 2021-12-05 11:31 | History & Physical Report ---
Date of Service December 05, 2021 Assessment & Plan (1) Weakness: Plan: Due to combination of COVID-19 infection and acute exacerbation of heart failure. Consult PT and OT (2) COVID-19: Plan: Patient is a slightly hypoxic but this could be due to combination of acute exacerbation of congestive heart failure COVID-19 positive is likely an incidental finding. Patient is not vaccinated or received booster for this condition. Currently started on dexamethasone for hypoxia. We will continue (3) CKD (chronic kidney disease): Plan: Creatinine is a slightly higher than usual. Could be due to acute exacerbation of congestive heart failure, dehydratio Avoid nephrotoxins Repeat BMP (4) Elevated troponin: Plan: Patient denies any chest pain. This could be due to worsening of kidney function versus exacerbation of congestive heart failure Continue cardioprotective medications including aspirin and beta-irais Trend troponin and consult cardiology if worsening (5) Lower extremity edema: Plan: Chronic lower extremity edema with a stasis dermatitis (6) Hypoxia: Plan: Acute on chronic respiratory failure with hypoxia Patient with history of chronic diastolic heart failure currently presenting with hypoxia and pulse ox 88% on room air with improvement to 95% on 2 L of oxygen Likely due to exacerbation of heart failure in addition to positive COVID-19 (7) Acute exacerbation of CHF (congestive heart failure): Plan: Check BNP Start diuresis as IV Lasix twice daily (8) Hypertension: Plan: Continue home medications (9) Coronary artery disease: Plan: Continue aspirin, beta-irais, nitrate (10) Atrial fibrillation: Plan: New diagnosis since May 2021. On warfarin with subtherapeutic INR Continue warfarin, beta-irais for rate control Repeat INR in the morning Admission and Anticipated Discharge Date Admission Date: December 05, 2021 History of Present Illness Chief Complaint: I fell from the recliner and could not get up Primary Care Provider: NO PCP Patient is a 76-year-old male with a past medical history of chronic diastolic heart failure with ejection fraction of 55 to 60%, coronary artery disease status post PTCA, hypertension, dyslipidemia, chronic renal insufficiency with baseline creatinine of 1.7, parkinsonism who presented to the hospital after a fall from recliner at home. He claims that he slid from the recliner and does not remember the circumstances around the event. He is a poor historian. He feels that he is weaker than usual but he ambulates with a walker and cane around the house. He cannot provide the details of the history for the last few days. He denies any headache, lightheadedness or dizziness, chest pain, shortness of breath, productive cough, nausea, vomiting, abdominal pain, urinary symptoms or diarrhea. His appetite is good. He claims that he followed up with his primary solar pool heating installer on a regular basis and is compliant with his medications. Upon arrival to the ER, he was found to be hypoxic and positive for COVID-19. His chest x-ray is consistent with pulmonary congestion and cardiomegaly. He will be admitted to the hospital with a diagnosis of acute on chronic hypoxic respiratory failure likely due to combination of acute exacerbation of diastolic heart failure in addition to COVID-19 infection Allergies Allergy/AdvReac Type Severity Reaction Status Date / Time No Known Allergies Allergy Verified 10/19/21 09:48 Home Medications Medication Instructions Recorded Confirmed Type aspirin 81 mg tablet,delayed 162 mg PO DAILY 07/16/19 10/12/21 History release torsemide 10 mg tablet 20 mg PO QAM #60 tabs 07/20/19 10/12/21 Rx isosorbide mononitrate 30 mg 30 mg PO DAILY #30 tabs 07/01/21 10/12/21 Rx tablet,extended release 24 hr metoprolol succinate 25 mg 75 mg PO BID #180 tabs 07/01/21 10/12/21 Rx tablet,extended release 24 hr terazosin 1 mg capsule 2 mg PO HS #30 caps 07/01/21 10/12/21 Rx warfarin 7.5 mg tablet (Jantoven) 7.5 mg PO DAILY@1600 #30 tabs 07/01/21 10/12/21 Rx Past Med/Surg History Medical History (Updated 12/05/21 @ 11:40 by Junie Bernal MD) Atrial fibrillation Atrial fibrillation CKD (chronic kidney disease) stage 3, GFR 30-59 ml/min Complication of cardiac bypass Coronary artery disease 09/1999 - PTCA to OM2 Hypertension Hypoxia Psoriasis Statin intolerance Family History Father Kidney failure Social History Smoking Status: Never smoker Tobacco Type: Smokeless Tobacco (Dip or Chew) Do You Dip or Chew Tobacco: Yes; Hx Alcohol Use: No Hx Substance Use: No Preferred Language: Slovak Communication Ability: Effective Visual Impairment: Partially Limited Hearing Ability: Normal 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 Beliefs That Will Affect Care: None marital status: Current Living Situation: Spouse Current Living Situation Comment: assists with dressing changes How many Children do You have: 4 Other Information That Helps Us Care for You: No Feels Safe at Home: Yes Safety Concerns: Feels Safe At This Time Diet Comment: Education to increase protein in diet to assist with wound healing caffeine: Yes Assistive Devices: Cane and Walker Assistive Devices Comment: Has only been utilizing past 1-2 weeks Review of Systems Review of Systems: Review of system as above, otherwise negative Physical Exam Physical Exam: Patient is awake and alert, oriented x3, weak looking. Morbidly obese Eyes: PERRL, conjunctivae normal, anicteric sclerae Respiratory: normal respiratory effort, lungs clear to auscultation Decreased breath sounds bilaterally at lung bases Chest (Breasts): normal inspection/palpation of breasts Gastrointestinal (Abdomen): normal bowel sounds, soft, nontender, no hepatosplenomegaly Musculoskeletal: no cyanosis or clubbing, extremities motor strength 5/5 Generalized weakness Neurologic: patellar DTR's 2+ bilat, sensation intact and PERRL, EOMI, accomm odation nl, no face palsy, no dysarthria Results & Data Results & Data ([facility]) Vital Signs (Past 12 Hours) Vital Signs Temp Pulse Pulse Pulse Resp BP BP 12/05/21 08:02 12/05/21 08:02 37.2 C 66 24 131/67 12/05/21 06:00 86 18 135/64 12/05/21 05:57 83 12/05/21 05:04 72 26 H 126/59 L 12/05/21 03:07 37.6 C H 86 22 132/69 Pulse Ox O2 Del Method O2 Flow Rate 12/05/21 08:02 Nasal Cannula 2 12/05/21 08:02 88 L Room Air 12/05/21 06:00 98 Nasal Cannula 2 12/05/21 05:57 98 Nasal Cannula 2 12/05/21 05:04 96 Nasal Cannula 2 12/05/21 03:07 89 L Room Air Laboratory Results Laboratory Results WBC 10.52 K/ul (4.8-10.8) 12/05/21 03:22 RBC 5.20 M/uL (4.63-6.08) 12/05/21 03:22 Hgb 13.5 g/dl (14.0-18.0) L 12/05/21 03:22 Hct 41.6 % (40.1-51.0) 12/05/21 03:22 MCV 80.0 fL (80.0-100.0) 12/05/21 03:22 MCH 26.0 pg (25.0-34.0) 12/05/21 03:22 MCHC 32.5 g/dL (32.0-36.0) 12/05/21 03:22 RDW Std Deviation 48.0 fL (36.4-46.3) H 12/05/21 03: RDW Coeff of Sabrina 16.7 % (11.5-14.5) H 12/05/21 03:22 Plt Count 179 K/uL (130-400) 12/05/21 03:22 MPV 11.1 fL (9.4-12.4) 12/05/21 03:22 Immature Gran % (Auto) 0.4 % 12/05/21 03:22 Neut % (Auto) 82.2 % 12/05/21 03:22 Lymph % (Auto) 6.9 % 12/05/21 03:22 [place] % (Auto) 10.1 % 12/05/21 03:22 Eos % (Auto) 0.1 % 12/05/21 03:22 Baso % (Auto) 0.3 % 12/05/21 03:22 Neut # (Auto) 8.65 K/uL (1.4-6.5) H 12/05/21 03:22 Lymph # (Auto) 0.73 K/uL (1.2-3.4) L 12/05/21 03:22 [place] # (Auto) 1.06 K/uL (0.24-0.82) H 12/05/21 03:22 Eos # (Auto) 0.01 K/uL (0-0.50) 12/05/21 03:22 Baso # (Auto) 0.03 K/uL (0-0.2) 12/05/21 03:22 Immature Gran # (Auto) 0.04 K/uL (0.00-0.02) H 12/05/21 03:22 PT 19.8 Seconds (9.0-12.0) H 12/05/21 03:54 INR 1.9 (0.9-1.1) H 12/05/21 03:54 APTT 32.5 Seconds (21.0-31.0) H 12/05/21 03:54 PTT Ratio 1.2 12/05/21 03:54 Sodium 138 mmol/L (136-145) 12/05/21 03:22 Potassium 4.0 mmol/L (3.5-5.1) 12/05/21 03:22 Chloride 100 mmol/L (98-107) 12/05/21 03:22 Carbon Dioxide 32 mmol/L (21-32) 12/05/21 03:22 Anion Gap 6 (3-11) 12/05/21 03:22 BUN 37 mg/dl (6-23) H 12/05/21 03:22 Creatinine 2.09 mg/dl (0.6-1.4) H 12/05/21 03:22 Est Cr Clr Drug Dosing 41.2 ml/min 12/05/21 03:22 Est GFR ( Amer) 34.6 ml/min 12/05/21 03:22 Est GFR (Non-Af Amer) 29.9 ml/min 12/05/21 03:22 BUN/Creatinine Ratio 17.7 (10-20) 12/05/21 03:22 Glucose 123 mg/dl (70-99(Fasting)) H 12/05/21 03:22 Lactate 1.6 mmol/L (0.4-2.0) 12/05/21 03:22 Calcium 9.2 mg/dl (8.5-10.1) 12/05/21 03:22 Magnesium 2.0 mg/dl (1.7-2.4) 12/05/21 03:22 Total Bilirubin 0.4 mg/dl (0.2-1.0) 12/05/21 03:22 Direct Bilirubin 0.2 mg/dl (0-0.2) 12/05/21 03:22 AST 31 U/L (13-39) 12/05/21 03:22 ALT 21 U/L (7-52) 12/05/21 03:22 Alkaline Phosphatase 98 U/L (34-104) 12/05/21 03:22 Troponin I High Sens 353.5 pg/ml (0-20) H* D 12/05/21 09:41 Total Protein 7.0 gm/dl (6.0-8.3) 12/05/21 03:22 Albumin 3.9 gm/dl (3.4-5.0) 12/05/21 03:22 Procalcitonin 0.09 ng/ml (0-0.5) 12/05/21 03:22 SARS-CoV-2, RNA, NAAT POSITIVE (NEGATIVE) A* 12/05/21 03:10 Impressions Chest X-Ray 12/05/21 03:01 XR chest 1V portable HISTORY: 76 years-old Male Sepsis acute sepsis COMPARISON: Chest radiograph 06/23/2021 TECHNIQUE: Portable AP view of the chest FINDINGS: Cardiac silhouette is enlarged. No pneumothorax, or pleural effusion, airspace consolidation or overt pulmonary edema. Degenerative changes of the shoulders and spine. IMPRESSION: Cardiomegaly without acute process. ACT 112: Negative or not required by law. The above report was generated using voice recognition software. It may contain grammatical, syntax or spelling errors. Electronically signed by: Jeovany Galan M.D. 12/05/2021 7:41 AM Code Status & VTE Plan Code Status Full code VTE Prophylaxis Plan VTE Prophylaxis will be ordered: Yes (1) Acute exacerbation of CHF (congestive heart failure) Heart failure type: unspecified Qualified Code(s): I50.9 - Heart failure, unspecified
[2021-12-05] MEDS ORDERED: FUROSEMIDE 40 MG/4 ML VIAL IV ONE (11:44)
--- NOTE | 2021-12-05 16:35 | Electrocardiogram Report ---
Test Reason : Blood Pressure : / mmHG Vent. Rate : 085 BPM Atrial Rate : 085 BPM P-R Int : 000 ms QRS Dur : 170 ms QT Int : 424 ms P-R-T Axes : 000 269 030 degrees QTc Int : 504 ms Poor data quality, interpretation may be adversely affected Atrial fibrillation Right bundle branch block Septal infarct , age undetermined Abnormal ECG When compared with ECG of 26-JUN-2021 09:12, No significant change Confirmed by Nael Vuong ([id number]) on 12/05/2021 4:34:52 PM Referred By: REFERRED SELF Confirmed By:Nael Vuong
[2021-12-05] MEDS: WARFARIN SOD 7.5 MG TAB PO SCH (17:09)
[2021-12-05] MEDS: TERAZOSIN HCL 1 MG CAP PO SCH (19:54)
[2021-12-06 06:18] LABS: Hemoglobin 12.2 g/dl (14.0-18.0); Mean Corpuscular Hemoglobin 25.5 pg (25.0-34.0); Mean Corpuscular Hgb Conc 31.3 g/dL (32.0-36.0); Mean Corpuscular Volume 81.4 fL (80.0-100.0); Mean Platelet Volume 11.3 fL (9.4-12.4); Platelet Count 160 K/uL (130-400); RDW Coefficient of Variation 16.2 % (11.5-14.5); RDW Standard Deviation 48.3 fL (36.4-46.3); Red Blood Count 4.79 M/uL (4.63-6.08); White Blood Count 6.19 K/ul (4.8-10.8)
[2021-12-06 06:26] LABS: INR 2.2 (0.9-1.1); Prothrombin Time 22.4 Seconds (9.0-12.0)
[2021-12-06 06:37] LABS: Albumin Level 3.5 gm/dl (3.4-5.0); BUN Creatinine Ratio 23.1 (10-20); Bilirubin,Total 0.3 mg/dl (0.2-1.0); Creatinine Clr Calc Pharmacy 46.4 ml/min; Est GFR (African American) 40.9 ml/min; Est GFR (Non-African American) 35.3 ml/min; Globulin 3.5 gm/dl (2.5-4.0); Potassium 4.1 mmol/L (3.5-5.1)
[2021-12-06] MEDS: dexAMETHasone 6 MG in SYRINGE 0 ML IV SCH (07:53)
[2021-12-06] MEDS: METOPROLOL SUCC 25MG EXT REL TAB PO SCH ×2 (07:53→20:09)
[2021-12-06] MEDS: ASPIRIN 81 MG ECTAB PO SCH (07:54)
[2021-12-06] MEDS: ISOSORBIDE MONO EXTENDED REL 30 MG TABCR PO SCH (07:54)
--- NOTE | 2021-12-06 09:51 | CT Scan Report ---
CT chest diagnostic wo con CT DOSE: 1062.46 mGy.cm CLINICAL HISTORY: 76 years-old Male with COVID 19 INFECTION. Acute hypoxia. COVID Positive. TECHNIQUE: Multiaxial CT images of the chest were performed without contrast. A dose lowering techni que was utilized adhering to the principles of ALARA. COMPARISON: Chest radiograph 12/05/2021, chest CT 06/24/2021 FINDINGS: Heterogeneity of the thyroid. No pathologically enlarged lymph nodes. Mediastinal lipomatosis. Modera te cardiomegaly with extensive coronary artery calcifications. Atherosclerosis of the thoracic aorta. Mildly dilated pulmonary artery may represent only arterial hypertension. Trace pleural effusions. No pneumothorax. Bronchial wall thickening with mucous plugging. Bilateral g roundglass densities with mosaic attenuation. 1.8 cm density left lung apex on image 42 is unchanged favoring pleural parenchymal scarring. Irregular subpleural 8 mm nodular density of the left lower lo be on image 212, favoring atelectasis or scarring. No acute process of the imaged upper abdomen. Cholelithiasis. Moderate fecal retention. Unremarkable soft tissues. No acute fracture identified. Imaging osteophytes throughout the thoracic spine with po ssible ankylosing spondylosis. IMPRESSION: 1. No airspace consolidation typical for pneumonia. 2. Bronchial wall thickening suggestive of bronchitis or reactive airway disease with mild mucous plu gging. Mild associated atelectasis with air trapping. 3. Cardiomegaly. 4. No lymphadenopathy. 5. Cholelithiasis. ACT 112: Negative or not required by law. Electronically signed by: Jeovany Galan M.D. 12/06/2021 9:49 AM
[2021-12-06] MEDS ORDERED: REMDESIVIR 200 MG in SODIUM CHLORIDE 0.9% 210 ML IV ONE (14:45)
[2021-12-06] MEDS: WARFARIN SOD 7.5 MG TAB PO SCH (16:46)
--- NOTE | 2021-12-06 16:47 | Hospitalist Progress Note ---
Date of Service December 06, 2021 Assessment & Plan (1) Weakness: Plan: Per admitting service notes with addendum: Due to combination of COVID-19 infection and acute exacerbation of heart failure. Consult PT and OT (2) COVID-19: Plan: Acute hypoxic respiratory failure Patient is a slightly hypoxic but this could be due to combination of acute exacerbation of congestive heart failure Patient is not vaccinated or received booster for this condition. Currently started on dexamethasone for hypoxia. 12/06: CT chest: 1. No airspace consolidation typical for pneumonia. 2. Bronchial wall thickening suggestive of bronchitis or reactive airway disease with mild mucous plugging. Mild associated atelectasis with air trapping. 3. Cardiomegaly. 4. No lymphadenopathy. 5. Cholelithiasis. Remdesivir day #1 Discussed with patient benefits and risks, he is understanding and agreeable To monitor GFR, LFTs daily Continue Decadron Hypertonic saline neb twice daily Incentive spirometry, flutter valve On Coumadin for A. fib (3) CKD (chronic kidney disease): Plan: Creatinine is a slightly higher than usual. Could be due to acute exacerbation of congestive heart failure, dehydratio Avoid nephrotoxins 12/05 Creatinine at baseline (4) Elevated troponin: Plan: Patient denies any chest pain. This could be due to worsening of kidney function versus exacerbation of congestive heart failure Continue cardioprotective medications including aspirin and beta-irais Trend troponin and consult cardiology if worsening (5) Lower extremity edema: Plan: Chronic lower extremity edema with a stasis dermatitis (6) Hypoxia: Plan: Acute on chronic respiratory failure with hypoxia Patient with history of chronic diastolic heart failure currently presenting with hypoxia and pulse ox 88% on room air with improvement to 95% on 2 L of oxygen Likely due to exacerbation of heart failure in addition to positive COVID-19 (7) Acute exacerbation of CHF (congestive heart failure): Plan: Check BNP 300 Given IV Lasix yesterday Appears euvolemic today Reevaluate tomorrow (8) Hypertension: Plan: Continue home medications (9) Coronary artery disease: Plan: Continue aspirin, beta-irais, nitrate (10) Atrial fibrillation: Plan: New diagnosis since May 2021. Continue warfarin, beta-irais for rate control Monitor INR Disposition Patient lives at home with family Patient prefers to go home when medically stable plan of care discussed with patient in detail and at length all questions answered he is understanding, agreeable, comfortable with the plan of care Admission and Anticipated Discharge Date Admission Date: December 05, 2021 Subjective Follow-up for acute hypoxic respiratory failure, diastolic CHF exacerbation, COVID-19 bronchitis, etc. Seen sitting up in bedside chair, on 2 L of oxygen via nasal cannula States he feels improved today compared to yesterday Breathing is better No chest pain, palpitations, dizziness No other symptoms Review of Systems Review of Systems: all noted and negative except for above Physical Exam Physical Exam: General- oriented x 3, not in distress, speaks in sentences with no effort or accessory muscle use Head- atraumatic Eyes- PERRL, EOMI, anicteric ENT- oropharynx clear Neck- supple, no JVD, no adenopathy, no thyromegaly; carotids +2/2, no bruits appreciated Lungs- clear to auscultation bilaterally, no rales/wheezes Heart- normal rate, regular rhythm; no murmur, no gallop, no rub appreciated Abdomen- normal bowel sounds, nondistended, soft, nontender, no masses or hepatosplenomegaly Extremities- trace pretibial edema, no calf tenderness; peripheral pulses intact Venous stasis wounds on bilateral lower extremity, no signs of infection Neuro- alert, oriented x 3; CN 2-12 grossly intact; motor 5/5 bilaterally;sensation 100% on all extremities; no other gross focal neurologic deficits Skin- warm & dry Results & Data Results & Data ([facility]) Vital Signs (Past 12 Hours) Vital Signs Temp Pulse Pulse Resp BP Pulse Ox O2 Del Method 12/06/21 15:32 54 L 12/06/21 13:00 36.8 C 87 20 138/69 97 12/06/21 08:00 Nasal Cannula 12/06/21 08:00 42 L 12/06/21 07:50 36.4 C L 61 19 149/71 H 97 Nasal Cannula O2 Flow Rate 12/06/21 15:32 12/06/21 13:00 12/06/21 08:00 2 12/06/21 08:00 12/06/21 07:50 2 all noted and reviewed including below (1) Acute exacerbation of CHF (congestive heart failure) Heart failure type: unspecified Qualified Code(s): I50.9 - Heart failure, unspecified
[2021-12-06 16:50] LABS: Anion Gap 5.1 (3-11)
[2021-12-06] MEDS ORDERED: SODIUM CHLOR 7% 4 ML NEB NEB SCH (19:00)
[2021-12-06] MEDS: TERAZOSIN HCL 1 MG CAP PO SCH (20:08)
[2021-12-06] MEDS: guaiFENesin 600 MG TABCR PO SCH (20:08)
[2021-12-07 08:04] LABS: Basophils # (auto) 0.01 K/uL (0-0.2); Basophils % (auto) 0.1 %; Hematocrit (blood only) 41.5 % (40.1-51.0); Immature Granulocytes # (auto) 0.02 K/uL (0.00-0.02); Immature Granulocytes % (auto) 0.2 %; Lymphocytes # (auto) 1.01 K/uL (1.2-3.4); Lymphocytes % (auto) 11.3 %; Mean Corpuscular Hemoglobin 25.4 pg (25.0-34.0); Mean Corpuscular Hgb Conc 31.3 g/dL (32.0-36.0); Mean Corpuscular Volume 81.2 fL (80.0-100.0); Mean Platelet Volume 11.4 fL (9.4-12.4); Monocytes # (auto) 0.65 K/uL (0.24-0.82); Monocytes % (auto) 7.3 %; Neutrophils # (auto) 7.21 K/uL (1.4-6.5); Neutrophils % (auto) 81.1 %; Platelet Count 148 K/uL (130-400); RDW Coefficient of Variation 15.8 % (11.5-14.5); RDW Standard Deviation 46.5 fL (36.4-46.3); Red Blood Count 5.11 M/uL (4.63-6.08)
[2021-12-07] MEDS: METOPROLOL SUCC 25MG EXT REL TAB PO SCH ×2 (08:18→19:54)
[2021-12-07] MEDS: guaiFENesin 600 MG TABCR PO SCH ×2 (08:18→19:55)
[2021-12-07] MEDS: ASPIRIN 81 MG ECTAB PO SCH (08:19)
[2021-12-07] MEDS: ISOSORBIDE MONO EXTENDED REL 30 MG TABCR PO SCH (08:19)
[2021-12-07] MEDS: dexAMETHasone 6 MG in SYRINGE 0 ML IV SCH (08:19)
[2021-12-07 08:28] LABS: INR 5.2 (0.9-1.1); Prothrombin Time 50.9 Seconds (9.0-12.0)
[2021-12-07 08:33] LABS: Albumin Globulin Ratio 1.1 (0.9-2); Albumin Level 3.7 gm/dl (3.4-5.0); BUN Creatinine Ratio 27.2 (10-20); Bilirubin,Total 0.3 mg/dl (0.2-1.0); Calcium 9.2 mg/dl (8.5-10.1); Est GFR (African American) 51.3 ml/min; Est GFR (Non-African American) 44.2 ml/min; Globulin 3.5 gm/dl (2.5-4.0); Total Protein 7.2 gm/dl (6.0-8.3)
[2021-12-07] MEDS: REMDESIVIR 100 MG in SODIUM CHLORIDE 0.9% 230 ML IV SCH (11:50)
[2021-12-07] MEDS: TORSEMIDE 10 MG TAB PO SCH ×2 (11:50→19:56)
[2021-12-07] MEDS: DOXYCYCLINE HYCLATE 100 MG CAP PO SCH ×2 (11:50→19:56)
--- NOTE | 2021-12-07 14:00 | Hospitalist Progress Note ---
Date of Service December 07, 2021 Assessment & Plan (1) Weakness: Plan: Per admitting service notes with addendum: Due to combination of COVID-19 infection and acute exacerbation of heart failure. PT and OT evaluation in progress (2) COVID-19: Plan: Acute hypoxic respiratory failure Patient is a slightly hypoxic but this could be due to combination of acute exacerbation of congestive heart failure Patient is not vaccinated or received booster for this condition. CT chest: 1. No airspace consolidation typical for pneumonia. 2. Bronchial wall thickening suggestive of bronchitis or reactive airway disease with mild mucous plugging. Mild associated atelectasis with air trapping. 3. Cardiomegaly. 4. No lymphadenopathy. 5. Cholelithiasis. 12/07 Remdesivir day #2/5 Discussed with patient benefits and risks, he is understanding and agreeable To monitor GFR, LFTs daily Continue Decadron day #3 Hypertonic saline neb twice daily Incentive spirometry, flutter valve On Coumadin for A. fib INR 5 Hold Coumadin Repeat chest x-ray tomorrow (3) CKD (chronic kidney disease): Plan: Creatinine is a slightly higher than usual. Could be due to acute exacerbation of congestive heart failure, dehydratio Avoid nephrotoxins 12/07 Creatinine at baseline (4) Elevated troponin: Plan: Patient denies any chest pain. This could be due to COVID-19 infection Continue cardioprotective medications including aspirin and beta-irais (5) Lower extremity edema: Plan: Chronic lower extremity edema with a stasis dermatitis Possible component of cellulitis Start doxycycline 1 mg p.o. twice daily Continue daily wound care Monitor closely (6) Hypoxia: Plan: Acute on chronic respiratory failure with hypoxia Patient with history of chronic diastolic heart failure currently presenting with hypoxia and pulse ox 88% on room air with improvement to 95% on 2 L of oxygen Likely due to exacerbation of heart failure in addition to positive COVID-19 (7) Acute exacerbation of CHF (congestive heart failure): Plan: Check BNP 300 Given IV Lasix on admission Resume usual torsemide 20 mg p.o. twice daily (8) Hypertension: Plan: Continue home medications (9) Coronary artery disease: Plan: Continue aspirin, beta-irais, nitrate (10) Atrial fibrillation: Plan: New diagnosis since May 2021. Continue warfarin, beta-irais for rate control INR 5 Hold Coumadin Disposition Patient lives at home with family Patient prefers to go home when medically stable plan of care discussed with patient in detail and at length all questions answered he is understanding, agreeable, comfortable with the plan of care Admission and Anticipated Discharge Date Admission Date: December 05, 2021 Subjective Follow-up for hypoxia, COVID-19 bronchitis, mild CHF extubation, etc. Seen sitting up in bedside chair, comfortable, not in distress States he feels improved today compared to yesterday Less cough, no shortness of breath No chest pain No leg pain, no fevers or chills No abdominal pain, nausea vomiting No other symptoms Review of Systems Review of Systems: all noted and negative except for above Physical Exam Physical Exam: General- oriented x 2, not in distress, speaks in sentences with no effort or accessory muscle use Eyes- anicteric Neck- no JVD Lungs-diminished but clear breath sounds bilaterally, no crackles or wheezes Heart- normal rate, regular rhythm; no murmurs Abdomen- normal bowel sounds, nondistended, soft, nontender Extremities- no pretibial edema, no calf tenderness Right lower extremity-small scar on the keller, mild surrounding erythema and warmth Left lower extremity-about 3 cm eschar on the proximal anterior aspect, below is about a 3 cm bullae With surrounding moderate erythema and warmth No tenderness Neuro- alert, oriented x 3; no gross focal neurologic deficits Skin- warm & dry Results & Data Results & Data ([facility]) Vital Signs (Past 12 Hours) Vital Signs Temp Pulse Pulse Pulse Resp BP Pulse Ox 12/07/21 08:00 12/07/21 08:00 41 L 12/07/21 07:51 36.3 C L 53 L 18 134/70 96 12/07/21 03:00 36.8 C 51 L 20 146/70 H 99 12/06/21 23:03 48 L 12/06/21 23:00 36.3 C L 49 L 16 145/69 H 98 O2 Del Method O2 Flow Rate 12/07/21 08:00 Nasal Cannula 2 12/07/21 08:00 12/07/21 07:51 Nasal Cannula 12/07/21 03:00 Nasal Cannula 2 12/06/21 23:03 12/06/21 23:00 Nasal Cannula 2 all noted and reviewed including below (1) Acute exacerbation of CHF (congestive heart failure) Heart failure type: unspecified Qualified Code(s): I50.9 - Heart failure, unspecified
[2021-12-07] MEDS: TERAZOSIN HCL 1 MG CAP PO SCH (19:56)
[2021-12-08 07:01] LABS: Basophils # (auto) 0.01 K/uL (0-0.2); Basophils % (auto) 0.1 %; Hematocrit (blood only) 41.2 % (40.1-51.0); Hemoglobin 12.9 g/dl (14.0-18.0); Immature Granulocytes # (auto) 0.03 K/uL (0.00-0.02); Immature Granulocytes % (auto) 0.3 %; Lymphocytes % (auto) 11.8 %; Mean Corpuscular Hemoglobin 25.1 pg (25.0-34.0); Mean Corpuscular Hgb Conc 31.3 g/dL (32.0-36.0); Mean Corpuscular Volume 80.2 fL (80.0-100.0); Mean Platelet Volume 11.2 fL (9.4-12.4); Monocytes # (auto) 0.64 K/uL (0.24-0.82); Monocytes % (auto) 6.9 %; Neutrophils # (auto) 7.52 K/uL (1.4-6.5); Neutrophils % (auto) 80.9 %; Platelet Count 172 K/uL (130-400); RDW Coefficient of Variation 15.6 % (11.5-14.5); RDW Standard Deviation 45.5 fL (36.4-46.3); Red Blood Count 5.14 M/uL (4.63-6.08)
[2021-12-08 07:13] LABS: INR 3.3 (0.9-1.1); Prothrombin Time 33.3 Seconds (9.0-12.0)
[2021-12-08 07:23] LABS: Albumin Globulin Ratio 1.1 (0.9-2); Albumin Level 3.8 gm/dl (3.4-5.0); Bilirubin,Total 0.4 mg/dl (0.2-1.0); Calcium 9.2 mg/dl (8.5-10.1); Creatinine Clr Calc Pharmacy 46.7 ml/min; Est GFR (African American) 41.2 ml/min; Est GFR (Non-African American) 35.5 ml/min; Globulin 3.4 gm/dl (2.5-4.0); Total Protein 7.2 gm/dl (6.0-8.3)
[2021-12-08] MEDS: dexAMETHasone 6 MG in SYRINGE 0 ML IV SCH (08:29)
[2021-12-08] MEDS: TORSEMIDE 10 MG TAB PO SCH ×2 (08:29→20:50)
[2021-12-08] MEDS: DOXYCYCLINE HYCLATE 100 MG CAP PO SCH ×2 (08:30→20:50)
[2021-12-08] MEDS: ASPIRIN 81 MG ECTAB PO SCH (08:30)
[2021-12-08] MEDS: guaiFENesin 600 MG TABCR PO SCH ×2 (08:30→20:51)
[2021-12-08] MEDS: ISOSORBIDE MONO EXTENDED REL 30 MG TABCR PO SCH (08:30)
[2021-12-08] MEDS: METOPROLOL SUCC 25MG EXT REL TAB PO SCH ×2 (08:30→20:52)
--- NOTE | 2021-12-08 09:42 | XRay Report ---
XR chest 1V portable HISTORY: ff up acute bronchitis, COVID COMPARISON: Chest CT 12/06/2021. FINDINGS: No pneumothorax. No pleural effusions. The heart is mildly enlarged. There is mild central pulmonary vascular congestion without overt edema. This is similar to the prior study. No new focal l quentin consolidations to suggest pneumonia. IMPRESSION: Mild central pulmonary vascular congestion without overt edema. ACT 112: Negative or not required by law. Electronically signed by: Trever Burks M.D. 12/08/2021 9:41 AM
[2021-12-08] MEDS: REMDESIVIR 100 MG in SODIUM CHLORIDE 0.9% 230 ML IV SCH (12:17)
[2021-12-08] MEDS ORDERED: FUROSEMIDE INJ 20 MG/2 ML VIAL IV ONE (16:30)
--- NOTE | 2021-12-08 17:57 | Hospitalist Progress Note ---
Date of Service December 08, 2021 Assessment & Plan (1) Weakness: Plan: Per admitting service notes with addendum: Due to combination of COVID-19 infection and acute exacerbation of heart failure. PT and OT evaluation in progress (2) COVID-19: Plan: Acute hypoxic respiratory failure secondary to COVID-19 with acute bronchitis Patient is not vaccinated or received booster for this condition. CT chest: 1. No airspace consolidation typical for pneumonia. 2. Bronchial wall thickening suggestive of bronchitis or reactive airway disease with mild mucous plugging. Mild associated atelectasis with air trapping. 3. Cardiomegaly. 4. No lymphadenopathy. 5. Cholelithiasis. 12/08 Weaned off oxygen today Clinically improving Repeat chest x-ray: IMPRESSION: Mild central pulmonary vascular congestion without overt edema. Remdesivir day #3/5 monitor renal function, LFTs daily Continue Decadron day #4 Hypertonic saline neb twice daily Incentive spirometry, flutter valve On Coumadin for A. fib INR 3.3 Hold Coumadin, usually on 3.75 mg p.o. daily except Tuesday 7.5 mg p.o. (3) Acute exacerbation of CHF (congestive heart failure): Plan: Check BNP 300 Given IV Lasix on admission Resumed usual torsemide 20 mg p.o. twice daily Today, patient has grade 1 lower extremity edema Additional Lasix 20 mg IV given Monitor (4) CKD (chronic kidney disease): Plan: Creatinine is a slightly higher than usual. Could be due to acute exacerbation of congestive heart failure, dehydratio Avoid nephrotoxins 12/08 Creatinine at baseline (5) Elevated troponin: Plan: Patient denies any chest pain. This could be due to COVID-19 infection Continue cardioprotective medications including aspirin and beta-irais (6) Lower extremity edema: Plan: Chronic lower extremity edema with a stasis dermatitis, eschar Possible component of cellulitis doxycycline 1 mg p.o. twice daily day #2/ Continue daily wound care Monitor closely (7) Hypertension: Plan: Continue home medications (8) Coronary artery disease: Plan: Continue aspirin, beta-irais, nitrate (9) Atrial fibrillation: Plan: New diagnosis since May 2021. Continue warfarin, beta-irais for rate control INR 3.3 Hold Coumadin, usually on 3.75 mg p.o. daily except Tuesday 7.5 mg p.o. Disposition Patient lives at home with family Patient prefers to go home when medically stable plan of care discussed with patient in detail and at length all questions answered he is understanding, agreeable, comfortable with the plan of care Admission and Anticipated Discharge Date Admission Date: December 05, 2021 Subjective Follow-up for acute hypoxic respiratory failure secondary to COVID-19 bronchitis, mild diastolic CHF exacerbation, etc. Seen resting in bedside chair, off oxygen supplement Not in distress, comfortable States he continues to feel improved No shortness of breath, occasional dry cough No chest pain No leg pain Review of Systems Review of Systems: all noted and negative except for above Physical Exam Physical Exam: General- oriented x 3, not in distress, speaks in sentences with no effort or accessory muscle use Eyes- anicteric Neck- no JVD Lungs- clear breath sounds bilaterally, no rales/wheezes Heart- normal rate, regular rhythm; no murmurs Abdomen- normal bowel sounds, nondistended, soft, nontender Extremities-positive grade 1 lower extremity edema Mild bilateral warmth, and erythema, no tenderness Eschar on both legs, healing well Bullae on left lower extremity Neuro- alert, oriented x 3; no gross focal neurologic deficits Skin- warm & dry Results & Data Results & Data ([facility]) Vital Signs (Past 12 Hours) Vital Signs Temp Pulse Resp BP Pulse Ox O2 Del Method 12/08/21 15:16 36.5 C 60 19 120/64 90 Room Air 12/08/21 12:00 36.6 C 53 L 18 120/63 90 Room Air 12/08/21 08:00 Room Air 12/08/21 07:48 36.4 C L 55 L 20 125/66 94 Room Air all noted and reviewed including below (1) Acute exacerbation of CHF (congestive heart failure) Heart failure type: unspecified Qualified Code(s): I50.9 - Heart failure, unspecified
[2021-12-08] MEDS: TERAZOSIN HCL 1 MG CAP PO SCH (20:51)
[2021-12-09 07:21] LABS: Basophils # (auto) 0.01 K/uL (0-0.2); Basophils % (auto) 0.1 %; Hematocrit (blood only) 42.2 % (40.1-51.0); Hemoglobin 13.8 g/dl (14.0-18.0); Immature Granulocytes # (auto) 0.03 K/uL (0.00-0.02); Immature Granulocytes % (auto) 0.3 %; Lymphocytes # (auto) 1.84 K/uL (1.2-3.4); Lymphocytes % (auto) 17.5 %; Mean Corpuscular Hemoglobin 25.8 pg (25.0-34.0); Mean Corpuscular Hgb Conc 32.7 g/dL (32.0-36.0); Mean Platelet Volume 11.3 fL (9.4-12.4); Monocytes # (auto) 0.65 K/uL (0.24-0.82); Monocytes % (auto) 6.2 %; Neutrophils # (auto) 8.01 K/uL (1.4-6.5); Neutrophils % (auto) 75.9 %; Platelet Count 177 K/uL (130-400); RDW Coefficient of Variation 15.4 % (11.5-14.5); RDW Standard Deviation 43.8 fL (36.4-46.3); Red Blood Count 5.34 M/uL (4.63-6.08); White Blood Count 10.54 K/ul (4.8-10.8)
[2021-12-09 07:30] LABS: INR 2.6 (0.9-1.1); Prothrombin Time 26.1 Seconds (9.0-12.0)
[2021-12-09 07:44] LABS: Albumin Globulin Ratio 1.1 (0.9-2); Albumin Level 3.9 gm/dl (3.4-5.0); BUN Creatinine Ratio 27.6 (10-20); Bilirubin,Total 0.4 mg/dl (0.2-1.0); Calcium 9.3 mg/dl (8.5-10.1); Est GFR (African American) 38.3 ml/min; Est GFR (Non-African American) 33.1 ml/min; Globulin 3.6 gm/dl (2.5-4.0); Potassium 3.4 mmol/L (3.5-5.1); Total Protein 7.5 gm/dl (6.0-8.3)
[2021-12-09] MEDS: METOPROLOL SUCC 25MG EXT REL TAB PO SCH (07:51)
[2021-12-09] MEDS: ISOSORBIDE MONO EXTENDED REL 30 MG TABCR PO SCH (08:08)
[2021-12-09] MEDS: TORSEMIDE 10 MG TAB PO SCH (08:08)
[2021-12-09] MEDS: guaiFENesin 600 MG TABCR PO SCH (08:08)
[2021-12-09] MEDS: dexAMETHasone 6 MG in SYRINGE 0 ML IV SCH (08:08)
[2021-12-09] MEDS: DOXYCYCLINE HYCLATE 100 MG CAP PO SCH (08:09)
[2021-12-09] MEDS: ASPIRIN 81 MG ECTAB PO SCH (08:09)
[2021-12-09] MEDS ORDERED: POTASSIUM CHLORIDE CRTAB 20 MEQ TABCR PO STA (08:11)
[2021-12-09] MEDS: REMDESIVIR 100 MG in SODIUM CHLORIDE 0.9% 230 ML IV SCH (11:43)
--- NOTE | 2021-12-09 13:13 | Discharge Summary ---
Date of Service December 09, 2021 Admission HPI Per Admitting Provider Patient is a 76-year-old male with a past medical history of chronic diastolic heart failure with ejection fraction of 55 to 60%, coronary artery disease status post PTCA, hypertension, dyslipidemia, chronic renal insufficiency with baseline creatinine of 1.7, parkinsonism who presented to the hospital after a fall from recliner at home. He claims that he slid from the recliner and does not remember the circumstances around the event. He is a poor historian. He feels that he is weaker than usual but he ambulates with a walker and cane around the house. He cannot provide the details of the history for the last few days. He denies any headache, lightheadedness or dizziness, chest pain, shortness of breath, productive cough, nausea, vomiting, abdominal pain, urinary symptoms or diarrhea. His appetite is good. He claims that he followed up with his primary engineer conductor on a regular basis and is compliant with his medications. Upon arrival to the ER, he was found to be hypoxic and positive for COVID-19. His chest x-ray is consistent with pulmonary congestion and cardiomegaly. He will be admitted to the hospital with a diagnosis of acute on chronic hypoxic respiratory failure likely due to combination of acute exacerbation of diastolic heart failure in addition to COVID-19 infection Admission Exam Per Admitting Provider Patient is awake and alert, oriented x3, weak looking. Morbidly obese Eyes:PERRL, conjunctivae normal, anicteric scleraeRespiratory:normal respiratory effort, lungs clear to auscultation Decreased breath sounds bilaterally at lung basesChest (Breasts):normal inspection/palpation of breastsGastrointestinal (Abdomen):normal bowel sounds, soft, nontender, no hepatosplenomegalyMusculoskeletal:no cyanosis or clubbing, extremities motor strength 5/5 Generalized weaknessNeurologic:patellar DTR's 2+ bilat, sensation intact and PERRL, EOMI, accommodation nl, no face palsy, no dysarthria Principal Diagnosis COVID19 Discharge Exam Patient is awake and alert, oriented x3 Eyes:PERRL, conjunctivae normal, anicteric sclerae Respiratory:normal respiratory effort, lungs clear to auscultation Decreased breath sounds bilaterally at lung bases Gastrointestinal (Abdomen):normal bowel sounds, soft, nontender, no hepatosplenomegaly Musculoskeletal:no cyanosis or clubbing, extremities motor strength 5/5 Generalized weakness Neurologic:patellar DTR's 2+ bilat, sensation intact and PERRL, EOMI, accommodation nl, no face palsy, no dysarthria Discharge Data Allergies Allergy/AdvReac Type Severity Reaction Status Date / Time No Known Allergies Allergy Verified 10/19/21 09:48 Consultations 12/05/21 05:03 ED Decision to Admit Stat Ordered Studies 12/06/21 08:07 CT chest diagnostic wo con Urgent Hospital Course (1) Weakness: Per admitting service notes with addendum: Due to combination of COVID-19 infection and acute exacerbation of heart failure. - s/p IV lasix - 4 days remdesivir, dexamethasone - weaned off oxygen on RA at time of discharge - follow up with PCP, no need for further dexamethasone or remdesivir since bob erating RA (2) COVID-19: Acute hypoxic respiratory failure secondary to COVID-19 with acute bronchitis - s/p remdesivire and dexamethasone as above (3) Acute exacerbation of CHF (congestive heart failure): Check BNP 300 Given IV Lasix on admission Resumed usual torsemide 20 mg p.o. twice daily - LEs at baseline Monitor (4) CKD (chronic kidney disease): Creatinine is a slightly higher than usual. Could be due to acute exacerbation of congestive heart failure, dehydratio Avoid nephrotoxins Creatinine at baseline (5) Elevated troponin: Patient denies any chest pain. This could be due to COVID-19 infection Continue cardioprotective medications including aspirin and beta-irais (6) Lower extremity edema: Chronic lower extremity edema with a stasis dermatitis, eschar Possible component of cellulitis discharged to complete 7 day course of doxycycline Continue daily wound care Monitor closely (7) Hypertension: Continue home medications (8) Coronary artery disease: Continue aspirin, beta-irais, nitrate (9) Atrial fibrillation: New diagnosis since May 2021. Continue warfarin, beta-irais for rate control Disposition Patient lives at home with family Patient prefers to go home when medically stable plan of care discussed with patient in detail and at length all questions answered he is understanding, agreeable, comfortable with the plan of care Total Time Total Time Spent Total Time Spent (In Minutes): 25 Total Time Includes: Examination of the Patient, Discharge Planning and Medication Reconciliation Discharge Plan Discharge Items Patient Disposition: Home - Self-Care Reason For Visit: COVID, WEAKNESS, FEVER Discharge Diagnosis: COVID19 Activity: Resume your previous activity Non-emergency contact: Primary Care Provider and Multi Operation Forming Machine Setter Call non-emergency contact if: you have any medication questions and your symptoms worsen Follow-up/Referrals: Kelsi Dawn, [Primary Care Provider] - Diet: Carb Consistent or DM2 and Heart Healthy Addtl Attending Provider Instructions: You were admitted with shortness of breath and weakness, likely due to COVID19 infection. You initially required oxygen supplementation and IV lasix to help you urinate fluid out to help with oxygenation. You were also given COVID19 treatment with remdesivir and dexamethasone (a steroid) with improvement. You were taken off oxygen and resumed on your home water pill (toresemide 20mg 2x/day). You should follow up with your primary care doctor and your Multi Operation Forming Machine Setter within a week of discharge. Pending Studies at Discharge: No Stand-Alone Forms: My [facility] [employer], Smoking Cessation Medications and DC Order Prescriptions: New doxycycline hyclate 100 mg Capsule 100 mg PO BID Qty: 9 0RF Continued aspirin 81 mg Tablet,Delayed Release (Dr/Ec) 162 mg PO DAILY warfarin [Jantoven] 7.5 mg Tablet 7.5 mg PO DAILY@1600 Qty: 30 0RF isosorbide mononitrate 30 mg Tablet Extended Release 24 Hr 30 mg PO DAILY Qty: 30 1RF terazosin 1 mg Capsule 2 mg PO HS Qty: 30 1RF metoprolol succinate 25 mg Tablet Extended Release 24 Hr 75 mg PO BID Qty: 180 1RF Changed torsemide 10 mg Tablet 20 mg PO BID Qty: 60 2RF Discharge Orders: Discharge Order (Routine); Ordered 12/09/21 Ordered By: Micheal Peña Admission Data Admit Date/Time: 12/05/21 06:21 Attending Provider: Micheal Peña Admit Provider: Jayden Damian Primary Care Provider: Kelsi Dawn Other Providers: Chase Evans Other Interventions: Discharge Summary Assessment (RN) Last Done: 12/09/21 11:00
== END 2021-12-09 14:07 | disposition home or self-care (01) | DRG 177 ==
LOC: ED 02:52 → SUATTDRO 06:21 → 1E 06:21 → 2S 19:03